=== PATIENT | female | born 1960 | race African-American/Black ===

== ENCOUNTER 2018-07-13 09:06 | Emergency (ER) | payer OTHER ==
--- OUTSIDE RECORDS SUMMARY | 2018-07-13 09:11 | XMS REPORT | Continuity of Care Document ---
Author Author Arpit lemusann [facility] Interface Address Unknown Phone Unavailable Problems Problem Status Onset Date Classification Date Reported Comments Source SOB Active 05/24/2016 [facility] COUGH Active 05/24/2016 [facility] CHEST PAIN, SOB Active 05/24/2016 [facility] Discharge Diagnosis: COPD exacerbation 06/14/2015 06/17/2015 [facility] Discharge Diagnosis: Acute bronchitis with COPD 02/20/2015 02/23/2015 [facility] Discharge Diagnosis: Chronic obstructive pulmonary disease, unspecified 01/23/2015 01/26/2015 [facility] Discharge Diagnosis: 01/23/2015 01/26/2015 [facility] Discharge Diagnosis: COPD 10/13/2014 10/16/2014 [facility] SHORTNESS OF BREATH Active 10/12/2014 [facility] Discharge Diagnosis: Asthma exacerbation in COPD 12/01/2013 12/04/2013 [facility] Discharge Diagnosis: COPD exacerbation 11/01/2013 11/04/2013 [facility] ABNORMAL LABS Active 10/14/2012 [facility] + BLOOD CULTURE Active 10/14/2012 [facility] OTHER Active 10/12/2012 [facility] COPD Active 10/12/2012 [facility] DIFFICULTY BREATHING Active 04/29/2012 [facility] COPD EXCERBATION,HYPOXIA Active 04/08/2012 [facility] Asthma Active Problem 10/19/2012 [facility] COPD Active Problem 10/19/2012 [facility] High blood pressure Active Problem 10/19/2012 [facility] Asthma Active Problem 05/28/2016 [facility] COPD Active Problem 05/28/2016 [facility] High blood pressure Active Problem 05/28/2016 [facility] CHR AIRWAY OBSTRUCT NEC Active [facility] Medications Medication Details Route Status Patient Instructions Ordering Provider Order Date Source Amlodipine 10 mg, 2 tab, Route: PO, Drug form: TAB, Daily, Dosing Weight 85, kg, Start date: 05/26/16 9:00:00 CDT, Duration: 30 day, Stop date: 06/24/16 9:00:00 CDTNotes: (Same as: Norvasc) No Longer Active 05/26/2016 [facility] Symbicort 80/4.5 inhalation aerosol with adapter 2 inhalation, Route: INHALATION, Drug Form: AERO/A, Dosing Weight 85, kg, BID, Start date: 05/25/16 17:00:00 CDT, Duration: 30 day, Stop date: 06/24/16 9:00:00 CDTNotes: (Same as: Symbicort) WASTE: Aerosol - Return to Pharmacy Inactive 05/25/2016 [facility] Symbicort 80/4.5 inhalation aerosol with adapter 2 puff, INHALATION, BID, # 10.2 gm, 0 Refill(s) Active 05/25/2016 [facility] 200 ACTUAT Albuterol 0.09 MG/ACTUAT Metered Dose Inhaler 2 puff, INHALATION, Q4H, PRN for wheezing, # 9 gm, 0 Refill(s) Active 05/25/2016 [facility] aspirin 81 mg tablet, enteric coated 81 mg=1 tab, PO, Daily, # 90 tab, 3 Refill(s) Active 05/25/2016 [facility] 200 ACTUAT Albuterol 0.09 MG/ACTUAT Metered Dose Inhaler 2 puff, Route: INHALATION, Drug Form: AERO/A, Dosing Weight 85, kg, Q4H, PRN Wheezing, Start date: 05/25/16 14:26:00 CDT, Duration: 30 day, Stop date: 06/24/16 14:25:00 CDTNotes: Albuterol 90 microgram/inh 8gm HFA WASTE: Aerosol - Return to Pharmacy Same as: Soumya Lau Inactive 05/25/2016 [facility] Prednisone 60 mg, Route: PO, Drug form: TAB, ONCE, Dosing Weight 89.545, kg, Priority: STAT, Start date: 05/25/16 5:25:00 CDT, Stop date: 05/25/16 5:25:00 CDT Inactive 05/25/2016 [facility] Albuterol 0.833 MG/ML / Ipratropium [place] 0.167 MG/ML Inhalant Solution 9 mL, Route: NEB, Dosing Weight 89.545, kg, ONCE, STAT, Start date: 05/25/16 5:25:00 CDT, Stop date: 05/25/16 5:25:00 CDT Inactive 05/25/2016 [facility] Saline Flush 0.9% 10 mL, Route: IVP, Drug Form: INJ, Dosing Weight 85, kg, PRN, PRN Line Flush, Start date: 05/24/16 13:13:00 CDT, Duration: 30 day, Stop date: 06/23/16 13:12:00 CDTNotes: (Same as: BD Posiflush) Inactive 05/24/2016 [facility] predniSONE 20 mg oral tablet 40 mg=2 tab, PO, Daily, X 5 day, # 10 tab, 0 Refill(s) Active 06/14/2015 [facility] 200 ACTUAT Albuterol 0.09 MG/ACTUAT Metered Dose Inhaler [ProAir HFA] 2 puff, INHALER, Q6H, PRN for wheezing, # 8.5 gm, 0 Refill(s) Active 06/14/2015 [facility] Albuterol 0.833 MG/ML / Ipratropium [place] 0.167 MG/ML Inhalant Solution 3 mL, Route: NEB, Drug Form: SOLN, Dosing Weight 82.273, kg, ONCE, STAT, Start date: 06/14/15 13:24:00, Stop date: 06/14/15 13:24:00Notes: (Same as: Duoneb) Inactive 06/14/2015 [facility] Saline Flush 0.9% 10 mL, Route: IVP, Drug Form: INJ, Dosing Weight 82.273, kg, PRN, PRN Line Flush, Start date: 06/14/15 13:24:00, Duration: 30 day, Stop date: 07/14/15 13:23:00Notes: (Same as: BD Posiflush) Inactive 06/14/2015 [facility] methylPREDNISolone SODium SUCCinate 125 mg, 2 mL, Route: IVP, Drug form: INJ, ONCE, Dosing Weight 82.273, kg, Priority: STAT, Start date: 06/14/15 13:24:00, Stop date: 06/14/15 13:24:00Notes: (Same as:Solu- MEDROL, A-Methapred) Inactive 06/14/2015 [facility] Albuterol 0.833 MG/ML / Ipratropium [place] 0.167 MG/ML Inhalant Solution [DuoNeb] 3 ml, Route: NEB, Drug Form: SOLN, Dosing Weight 81.818, kg, PRN, PRN Respiratory Protocol, STAT, Start date: 06/14/15 12:36:00, Duration: 30 day, Stop date: 07/14/15 12:35:00Notes: (Same as: Mone) Inactive 06/14/2015 [facility] Albuterol 0.83 MG/ML Inhalant Solution 2.49 mg=3 mL, INHALATION, Q4H, PRN wheezing, coughing, or shortness of breath, # 120 ea, 1 Refill(s) Active 02/21/2015 [facility] azithromycin 250 mg oral tablet See Instructions, Take 2 tablets by mouth the first day then 1 tablet by mouth days 2-5., X 5 day, # 6 tab, 0 Refill(s) Active 02/21/2015 [facility] 200 ACTUAT Albuterol 0.09 MG/ACTUAT Metered Dose Inhaler [Proventil] 2 puff, INHALER, Q4H, PRN wheezing, coughing, or shortness of breath, # 1 ea, 1 Refill(s) Active 02/21/2015 [facility] predniSONE 20 mg oral tablet 60 mg=3 tab, PO, Daily, Take 3 tablets for 60 mg dose, X 5 day, # 15 tab, 0 Refill(s) Active 02/21/2015 [facility] Solu-Medrol 125 mg, Route: IVP, ONCE, Dosing Weight 81.818, kg, Priority: STAT, Start date: 02/20/15 17:42:00, Stop date: 02/20/15 17:42:00 Inactive 02/20/2015 [facility] Albuterol 0.833 MG/ML / Ipratropium [place] 0.167 MG/ML Inhalant Solution 3 mL, Route: NEB, Dosing Weight 81.818, kg, ONCE, STAT, Start date: 02/20/15 17:38:00, Stop date: 02/20/15 17:38:00 Inactive 02/20/2015 [facility] Symbicort 80/4.5 inhalation aerosol with adapter 2 puff, INHALATION, BID, # 10.2 gm, 0 Refill(s) Active 01/23/2015 [facility] Albuterol 0.83 MG/ML Inhalant Solution 2.49 mg=3 mL, INHALATION, Q6H, # 120 ea, 0 Refill(s) Active 01/23/2015 [facility] 200 ACTUAT Albuterol 0.09 MG/ACTUAT Metered Dose Inhaler 2 puff, INHALATION, Q4H, PRN for wheezing, # 9 gm, 0 Refill(s) Active 01/23/2015 [facility] predniSONE 20 mg oral tablet 40 mg=2 tab, PO, Daily, X 5 day, # 10 tab, 0 Refill(s) Active 01/23/2015 [facility] Prednisone 60 mg, Route: PO, Drug form: TAB, ONCE, Dosing Weight 81.818, kg, Priority: STAT, Start date: 01/23/15 10:12:00, Stop date: 01/23/15 10:12:00 Inactive 01/23/2015 [facility] Albuterol 0.833 MG/ML / Ipratropium [place] 0.167 MG/ML Inhalant Solution 9 mL, Route: NEB, Dosing Weight 81.818, kg, ONCE, STAT, Start date: 01/23/15 10:12:00, Stop date: 01/23/15 10:12:00 Inactive 01/23/2015 [facility] predniSONE 20 mg oral tablet 40 mg=2 tab, PO, Daily, X 5 day, # 10 tab, 0 Refill(s) Active 01/03/2015 [facility] 200 ACTUAT Albuterol 0.09 MG/ACTUAT Metered Dose Inhaler 2 puff, INHALATION, Q4H, PRN for wheezing, # 9 gm, 0 Refill(s) Active 01/03/2015 [facility] methylPREDNISolone SODium SUCCinate 125 mg, Route: IVP, ONCE, Dosing Weight 84.091, kg, Priority: STAT, Start date: 01/03/15 15:17:00, Stop date: 01/03/15 15:17:00 Inactive 01/03/2015 [facility] Albuterol 0.83 MG/ML Inhalant Solution 7.47 mg, Route: NEB, Drug form: SOLN, ONCE, Dosing Weight 84.091, kg, Priority: STAT, Start date: 01/03/15 15:17:00, Stop date: 01/03/15 15:17:00 Inactive 01/03/2015 [facility] Albuterol 0.833 MG/ML / Ipratropium [place] 0.167 MG/ML Inhalant Solution [DuoNeb] 3 ml, Route: NEB, Drug Form: SOLN, Dosing Weight 84.091, kg, PRN, PRN Respiratory Protocol, Start date: 01/03/15 13:52:00, Duration: 30 day, Stop date: 02/02/15 12:51:00Notes: (Same as: Duoneb) No Longer Active 01/03/2015 [facility] Albuterol 0.833 MG/ML / Ipratropium [place] 0.167 MG/ML Inhalant Solution [DuoNeb] 3 ml, Route: NEB, Drug Form: SOLN, Dosing Weight 84.091, kg, PRN, PRN Respiratory Protocol, Start date: 01/03/15 13:51:00, Duration: 30 day, Stop date: 02/02/15 12:50:00Notes: (Same as: Duoneb) No Longer Active 01/03/2015 [facility] Saline Flush 0.9% 10 mL, Route: IVP, Drug Form: INJ, Dosing Weight 84.091, kg, PRN, PRN Line Flush, Start date: 01/03/15 13:51:00, Duration: 30 day, Stop date: 02/02/15 12:50:00Notes: (Same as: BD Posiflush) No Longer Active 01/03/2015 [facility] predniSONE 20 mg oral tablet 60 mg=3 tab, PO, Daily, Take 3 tablets for 60 mg dose, X 5 day, # 15 tab, 0 Refill(s)Special Instructions: Take 3 tablets for 60 mg dose Active 10/13/2014 [facility] Magnesium Sulfate 2 gm, Route: IVPB, ONCE, Dosing Weight 72.727, kg, Priority: STAT, Start date: 10/13/14 0:04:00, Stop date: 10/13/14 0:04:00 Inactive 10/13/2014 [facility] methylPREDNISolone SODium SUCCinate 125 mg, Route: IVP, ONCE, Dosing Weight 72.727, kg, Priority: STAT, Start date: 10/13/14 0:04:00, Stop date: 10/13/14 0:04:00 Inactive 10/13/2014 [facility] Albuterol 0.83 MG/ML Inhalant Solution 2.49 mg, 3 mL, Route: NEB, Drug form: SOLN, ONCE, Dosing Weight 72.727, kg, Priority: STAT, Start date: 10/13/14 0:04:00, Stop date: 10/13/14 0:04:00Notes: SEE RT DOCUMENTATION (Same as: Brycetil) Inactive 10/13/2014 [facility] Albuterol 0.833 MG/ML / Ipratropium [place] 0.167 MG/ML Inhalant Solution 3 mL, Route: NEB, Drug Form: SOLN, Dosing Weight 72.727, kg, ONCE, STAT, Start date: 10/12/14 23:53:00, Stop date: 10/12/14 23:53:00 No Longer Active 10/13/2014 [facility] Saline Flush 0.9% 10 mL, Route: IVP, Drug Form: INJ, Dosing Weight 72.727, kg, PRN, PRN Line Flush, Start date: 10/12/14 23:53:00, Duration: 30 day, Stop date: 11/11/14 23:52:00Notes: (Same as: BD Posiflush) No Longer Active 10/13/2014 [facility] albuterol CFC free 90 mcg/inh inhalation aerosol with adapter 1 puff, INHALATION, Q4H, for wheezing, # 2 ea, 0 Refill(s) Active 12/02/2013 [facility] predniSONE 20 mg oral tablet See Instructions, 2 tab PO Daily for three days then one tab daily for two, # 8 tab, 0 Refill(s)Special Instructions: 2 tab PO Daily for three days then one tab daily for two Active 12/02/2013 [facility] Albuterol 0.833 MG/ML / Ipratropium [place] 0.167 MG/ML Inhalant Solution [DuoNeb] 3 ml, Route: INHALATION, Drug Form: SOLN, Dosing Weight 77.273, kg, PRN, PRN Respiratory Protocol, Start date: 12/01/13 21:29:00, Duration: 30 day, Stop date: 12/31/13 21:28:00Notes: (Same as: Duoneb) No Longer Active 12/02/2013 [facility] Magnesium Sulfate 2 gm, 50 mL, Route: IVPB, Drug form: INJ, ONCE, Dosing Weight 77.273, kg, Priority: STAT, Start date: 12/01/13 19:55:00, Stop date: 12/01/13 19:55:00 Inactive 12/02/2013 [facility] Prednisone 60 mg, 3 tab, Route: PO, Drug form: TAB, ONCE, Dosing Weight 77.273, kg, Priority: STAT, Start date: 12/01/13 19:55:00, Stop date: 12/01/13 19:55:00Notes: Take with food. Inactive 12/02/2013 [facility] Albuterol 0.833 MG/ML / Ipratropium [place] 0.167 MG/ML Inhalant Solution 3 mL, Route: NEB, Drug Form: SOLN, Dosing Weight 77.273, kg, ONCE, STAT, Start date: 12/01/13 19:55:00, Stop date: 12/01/13 19:55:00 Inactive 12/02/2013 [facility] Saline Flush 0.9% 10 mL, Route: IVP, Drug Form: INJ, Dosing Weight 77.273, kg, PRN, PRN Line Flush, Start date: 12/01/13 19:55:00, Duration: 30 day, Stop date: 12/31/13 19:54:00Notes: (Same as: BD Posiflush) No Longer Active 12/02/2013 [facility] Sodium Chloride 0.154 MEQ/ML Injectable Solution 1,000 mL, 1,000 ml/hr, Infuse Over: 1 hr, Route: IV, 1,000, Drug form: INJ, ONCE, Priority: STAT, Dosing Weight 77.273 kg, Start date: 12/01/13 19:55:00, Duration: 1 doses or times, Stop date: 12/01/13 19:55:00 Inactive 12/02/2013 [facility] Fluticasone propionate 0.1 MG/ACTUAT / salmeterol 0.05 MG/ACTUAT Dry Powder Inhaler [Advair 100/50] 1 puff, INHALATION, BID, # 1 ea, 0 Refill(s) Active 11/02/2013 [facility] Albuterol 0.09 MG/ACTUAT Inhalant Solution 1 puff, INHALATION, QID, wheezing, # 1 ea, 0 Refill(s) Active 11/02/2013 [facility] predniSONE 20 mg oral tablet 20 mg=1 tab, PO, Daily, # 7 tab, 0 Refill(s) Active 11/02/2013 [facility] Albuterol 0.833 MG/ML / Ipratropium [place] 0.167 MG/ML Inhalant Solution [DuoNeb] 3 ml, Route: INHALATION, Drug Form: SOLN, Dosing Weight 72.727, kg, PRN, PRN Respiratory Protocol, Start date: 11/01/13 23:14:00, Duration: 1 doses or times, Stop date: 11/01/13 23:14:00Notes: (Same as: Duoneb) Inactive 11/02/2013 [facility] Prednisone 60 mg, Route: PO, Drug form: TAB, ONCE, Dosing Weight 72.727, kg, Priority: STAT, Start date: 11/01/13 23:14:00, Stop date: 11/01/13 23:14:00 Inactive 11/02/2013 [facility] Albuterol 0.833 MG/ML / Ipratropium [place] 0.167 MG/ML Inhalant Solution 3 mL, Route: NEB, Drug Form: SOLN, Dosing Weight 85.909, kg, ONCE, STAT, Start date: 11/01/13 20:18:00, Stop date: 11/01/13 20:18:00Notes: (Same as: Duoneb) Inactive 11/02/2013 [facility] Saline Flush 0.9% 10 mL, Route: IVP, Drug Form: INJ, Dosing Weight 85.909, kg, PRN, PRN Line Flush, Start date: 11/01/13 20:18:00, Duration: 30 day, Stop date: 12/01/13 20:17:00 Inactive 11/02/2013 [facility] Prednisone 60 mg, 3 tab, Route: PO, Drug form: TAB, ONCE, Dosing Weight 85.909, kg, Priority: STAT, Start date: 11/01/13 20:18:00, Stop date: 11/01/13 20:18:00Notes: Take with food. Inactive 11/02/2013 [facility] ibuprofen 600 mg oral tablet 600 mg, 1 tab, PO, Q6H, PRN, Take with food, 20 tab, Pain, Substitution AllowedTake with food PO Active [facility] 10/17/2012 [facility] clindamycin 300 mg oral capsule 300 mg, 1 cap, PO, Q8H, 30 cap, Substitution Allowed PO Active [facility] 10/17/2012 [facility] Remeron 7.5 mg, 0.5 tab, Route: PO, Drug form: TAB, Bedtime, Dosing Weight 81.534, kg, Start date: 10/15/12 21:00:00, Duration: 30 day, Stop date: 11/13/12 21:00:00 PO No Longer Active [facility] 10/16/2012 [facility] Symbicort 80/4.5 inhalation aerosol with adapter 2 inhalation, Route: INHALATION, Drug Form: AERO/A, Dosing Weight 81.534, kg, BID, Start date: 10/15/12 17:00:00, Duration: 30 day, Stop date: 11/14/12 9:00:00 INHALATION No Longer Active [facility] 10/15/2012 [facility] acetaminophen 650 mg, 2 tab, Route: PO, Drug form: TAB, Q6H, Dosing Weight 81.534, kg, PRN Fever, Start date: 10/15/12 16:37:00, Duration: 30 day, Stop date: 11/14/12 16:36:00 PO No Longer Active [facility] 10/15/2012 [facility] Motrin 800 mg, 1 tab, Route: PO, Drug form: TAB, TID, Dosing Weight 81.534, kg, PRN Pain, Start date: 10/15/12 16:37:00, Duration: 30 day, Stop date: 11/14/12 16:36:00 PO No Longer Active [facility] 10/15/2012 [facility] amLODipine 10 mg, 2 tab, Route: PO, Drug form: TAB, Daily, Dosing Weight 70.455, kg, Start date: 10/15/12 9:00:00, Duration: 30 day, Stop date: 11/13/12 9:00:00 PO No Longer Active [facility] 10/15/2012 [facility] albuterol-ipratropium 2.5-0.5 mg inhalation solution 3 mL, Route: INHALATION, Drug Form: SOLN, Dosing Weight 70.455, kg, RQID, Start date: 10/15/12 7:00:00, Duration: 30 day, Stop date: 11/13/12 19:00:00 INHALATION No Longer Active [facility] 10/15/2012 [facility] acetaminophen 650 mg, 2 tab, Route: PO, Drug form: TAB, Q6H, Dosing Weight 70.455, kg, PRN Pain, Start date: 10/15/12 5:20:00, Duration: 30 day, Stop date: 11/14/12 5:19:00 PO No Longer Active [facility] 10/15/2012 [facility] clindamycin + Sodium Chloride 0.9% IV 100 mL 600 mg, 4 mL, Route: IVPB, Drug form: INJ, [id number], Dosing Weight 70.455, kg, Start date: 10/14/12 22:00:00, Stop date: 11/13/12 16:30:00 IVPB No Longer Active [facility] 10/15/2012 [facility] DuoNeb inhalation solution 3 ml, Route: INHALATION, Drug Form: SOLN, Dosing Weight 70.455, kg, RQID, PRN Respiratory Protocol, Start date: 10/14/12 21:40:00, Duration: 30 day, Stop date: 11/13/12 21:39:00 INHALATION No Longer Active [facility] 10/15/2012 [facility] amLODipine 10 mg oral tablet 10 mg, 1 tab, PO, Daily, 30 tab, Substitution Allowed, TAB PO On Hold [facility] 10/14/2012 [facility] clindamycin 600 mg, Route: IVPB, ONCE, Dosing Weight 70.455, kg, Priority: STAT, Start date: 10/14/12 15:21:00, Stop date: 10/14/12 15:21:00 IVPB No Longer Active [facility] 10/14/2012 [facility] Protonix 40 mg, 1 tab, Route: PO, Drug form: ECTAB, Before Dinner, Start date: 10/13/12 16:30:00, Duration: 30 day, Stop date: 11/11/12 16:30:00 PO No Longer Active [facility] 10/13/2012 [facility] Xopenex HFA 45 mcg/inh inhalation aerosol with adapter 2 puff, INHALATION, Q4H, PRN, 1 can, as needed for wheezing, Substitution Allowed, Maintenance INHALATION No Longer Active [facility] 10/13/2012 [facility] Medrol Dosepak 4 mg Tablet See Instructions, as directed on package labeling, 1 pkg, Substitution Allowedas directed on package labeling No Longer Active [facility] 10/13/2012 [facility] Azithromycin 5 Day Dose Pack 250 mg oral tablet See Instructions, as directed on package labeling, 1 pkg, Substitution Allowedas directed on package labeling No Longer Active [facility] 10/13/2012 [facility] pantoprazole 40 mg oral enteric coated tablet 40 mg, 1 tab, PO, Before Dinner, 30 tab, Substitution Allowed, ECTAB PO No Longer Active [facility] 10/13/2012 [facility] DuoNeb inhalation solution 3 ml, INHALATION, QID, 30 ea, Substitution Allowed, Maintenance, SOLN INHALATION On Hold [facility] 10/13/2012 [facility] albuterol 1.25 mg, 3 mL, Route: NEB, Drug form: SOLN, RQ8H, PRN Shortness of breath, Start date: 10/13/12 10:57:00, Duration: 30 day, Stop date: 11/12/12 10:56:00 NEB No Longer Active [facility] 10/13/2012 [facility] Xopenex 0.63 mg, Route: NEB, Drug form: AERO, Q8H, Dosing Weight 81.477, kg, PRN as needed for wheezing, Start date: 10/13/12 10:50:00, Duration: 30 day, Stop date: 11/12/12 10:49:00 NEB No Longer Active [facility] 10/13/2012 [facility] tuberculin purified protein derivative 5 unit, 0.1 mL, Route: INTRADERM, Drug form: INJ, ONCE, Dosing Weight 65.909, kg, Start date: 10/13/12 9:00:00, Stop date: 10/13/12 9:00:00 INTRADERM No Longer Active [facility] 10/13/2012 [facility] pneumococcal 23-valent vaccine 0.5 ml, Route: IM, Drug Form: INJ, Start date: 10/13/12 9:00:00, Stop date: 10/13/12 9:00:00 IM No Longer Active [facility] 10/13/2012 [facility] predniSONE 60 mg, 3 tab, Route: PO, Drug form: TAB, Daily, Dosing Weight 65.909, kg, Start date: 10/13/12 9:00:00, Duration: 30 day, Stop date: 11/11/12 9:00:00 PO No Longer Active [facility] 10/13/2012 [facility] Excedrin 2 tab, Route: PO, Dosing Weight 81.477, kg, Q6H, Start date: 10/13/12 6:00:00, Duration: 30 day, Stop date: 11/12/12 0:00:00 PO No Longer Active [facility] 10/13/2012 [facility] Esgic 2 tab, Route: PO, Drug Form: TAB, Q6H, PRN Headache, Start date: 10/13/12 5:01:00, Duration: 30 day, Stop date: 11/12/12 5:00:00 PO No Longer Active [facility] 10/13/2012 [facility] acetaminophen 650 mg, 2 tab, Route: PO, Drug form: TAB, Q6H, Dosing Weight 81.477, kg, PRN Pain, Start date: 10/13/12 4:38:00, Duration: 30 day, Stop date: 11/12/12 4:37:00 PO No Longer Active [facility] 10/13/2012 [facility] Sodium Chloride 0.9% (Bolus) IV 500 mL 500 mL, Rate: 500 ml/hr, Infuse over: 1 hr, Route: IV, Dosing Weight 81.477 kg, Total Volume: 500, Priority: STAT, Start date: 10/13/12 4:36:00, Duration: 1 doses or times, Stop date: 10/13/12 5:35:00, Bolus DoseBolus Dose IV No Longer Active [facility] 10/13/2012 [facility] acetaminophen 650 mg, 2 tab, Route: PO, Drug form: TAB, Q4H, Dosing Weight 79.205, kg, PRN Headache, Start date: 10/13/12 0:08:00, Duration: 30 day, Stop date: 11/12/12 0:07:00 PO No Longer Active [facility] 10/13/2012 [facility] nitroglycerin 0.4 mg sublingual tablet 0.4 mg, 1 tab, Route: SL, Drug form: TAB, Q5Min, PRN Chest Pain, Start date: 10/13/12 0:04:00, Duration: 30 day, Stop date: 11/12/12 0:03:00 SL No Longer Active [facility] 10/13/2012 [facility] atropine 0.5 mg, 5 mL, Route: IVP, Drug form: INJ, PRN, PRN Bradycardia, Start date: 10/13/12 0:04:00, Duration: 30 day, Stop date: 11/12/12 0:03:00 IVP No Longer Active [facility] 10/13/2012 [facility] ceftriaxone + Sodium Chloride 0.9% IV 100 mL 1 gm, Route: IVPB, [id number], Dosing Weight 65.909, kg, Start date: 10/13/12 0:00:00, Duration: 30 day, Stop date: 11/11/12 0:00:00 IVPB No Longer Active [facility] 10/13/2012 [facility] methylPREDNISolone SODium SUCCinate 40 mg, 1 mL, Route: IVP, Drug form: INJ, Q8H, Dosing Weight 65.909, kg, Start date: 10/13/12 0:00:00, Duration: 48 hr, Stop date: 10/14/12 16:00:00 IVP No Longer Active White 10/13/2012 [facility] azithromycin + Sodium Chloride 0.9% IV 250 mL 500 mg, Route: IVPB, [id number], Dosing Weight 65.909, kg, Start date: 10/13/12 0:00:00, Duration: 30 day, Stop date: 11/11/12 0:00:00 IVPB No Longer Active Stanley 10/13/2012 [facility] Saline Flush 0.9% 5 ml, Route: IVP, Drug Form: INJ, Dosing Weight 65.909, kg, PRN, PRN Line Flush, Start date: 10/12/12 23:55:00, Duration: 30 day, Stop date: 11/11/12 23:54:00 IVP No Longer Active Stanley 10/13/2012 [facility] Sodium Chloride 0.9% IV 500 mL 500 mL, Rate: 75 ml/hr, Infuse over: 6.7 hr, Route: IV, Dosing Weight 65.909 kg, Total Volume: 500, Start date: 10/12/12 23:55:00, Duration: 30 day, Stop date: 11/11/12 23:54:00 IV No Longer Active [facility] 10/13/2012 [facility] Protonix 40 mg, Route: IVP, Drug form: INJ, Before Dinner, Dosing Weight 65.909, kg, Priority: NOW, Start date: 10/12/12 23:55:00, Duration: 30 day, Stop date: 11/11/12 16:30:00 IVP No Longer Active [facility] 10/13/2012 [facility] albuterol-ipratropium 2.5-0.5 mg inhalation solution 3 mL, Route: NEB, Drug Form: SOLN, Dosing Weight 65.909, kg, RQ4H, PRN Wheezing, Start date: 10/12/12 23:55:00, Duration: 30 day, Stop date: 11/11/12 23:54:00 NEB No Longer Active [facility] 10/13/2012 [facility] Sodium Chloride 0.9% (Bolus) IV 1000 mL 1,000 mL, Rate: 1,000 ml/hr, Infuse over: 1 hr, Route: IV, Dosing Weight 65.909 kg, Total Volume: 1,000, Priority: STAT, Start date: 10/12/12 22:26:00, Duration: 1 doses or times, Stop date: 10/12/12 23:25:00, Bolus DoseBolus Dose IV No Longer Active [facility] 10/13/2012 [facility] magnesium sulfate 2gm / NS 50ml (premixed) 2 gm, Route: IVPB, Drug form: INJ, ONCE, Dosing Weight 65.909, kg, Start date: 10/12/12 20:25:00, Duration: 2 hr, Stop date: 10/12/12 20:25:00 IVPB No Longer Active [facility] 10/13/2012 [facility] albuterol-ipratropium 2.5-0.5 mg inhalation solution 9 mL, Route: NEB, Drug Form: SOLN, Dosing Weight 65.909, kg, ONCE, STAT, Start date: 10/12/12 20:25:00, Stop date: 10/12/12 20:25:00 NEB No Longer Active [facility] 10/13/2012 [facility] Saline Flush 0.9% 5 mL, Route: IVP, Drug Form: INJ, Dosing Weight 65.909, kg, PRN, PRN Line Flush, Start date: 10/12/12 20:25:00, Duration: 30 day, Stop date: 11/11/12 20:24:00 IVP No Longer Active [facility] 10/13/2012 [facility] methylPREDNISolone SODium SUCCinate 125 mg, Route: IVP, ONCE, Dosing Weight 65.909, kg, Priority: STAT, Start date: 10/12/12 20:25:00, Stop date: 10/12/12 20:25:00 IVP No Longer Active [facility] 10/13/2012 [facility] magnesium sulfate 2 gm, Route: IVPB, ONCE, Dosing Weight 65.909, kg, Priority: STAT, Start date: 10/12/12 20:25:00, Stop date: 10/12/12 20:25:00 IVPB No Longer Active [facility] 10/13/2012 [facility] SoluMedrol 125 mg, Route: IVP, ONCE, Dosing Weight 65.909, kg, Priority: STAT, Start date: 10/12/12 20:24:00, Stop date: 10/12/12 20:24:00 IVP No Longer Active [facility] 10/13/2012 [facility] Norvasc 10 mg oral tablet 10 mg, 1 tab, PO, Daily, 30 tab, Substitution Allowed, TAB PO Active [facility] 07/15/2012 [facility] albuterol 90 mcg/inh inhalation aerosol 2 puff, INHALATION, Q6H, 1 can, Substitution Allowed, Maintenance INHALATION Active [facility] 07/15/2012 [facility] albuterol 0.083% inhalation solution 2.49 mg, 3 mL, NEB, Q6H, one box of unit dose vials, 1 box, Substitution Allowedone box of unit dose vials NEB Active [facility] 07/15/2012 [facility] Zithromax Z-Joe 250 mg oral tablet 250 mg, 1 tab, PO, Daily, TAKE 2 TABLETS ON DAY 1; TAKE 1 TABLET ON DAYS 2 - 5, 6 tab, Substitution AllowedTAKE 2 TABLETS ON DAY 1; TAKE 1 TABLET ON DAYS 2 - [address] [facility] 07/15/2012 [facility] predniSONE 20 mg oral tablet 40 mg po x4day,then 20 mg po x4da, PO, Daily, 12 tab, Substitution Allowed PO Active [facility] 07/15/2012 [facility] NIFEdipine 10 mg, 1 cap, Route: PO, Drug form: CAP, ONCE, Dosing Weight 79.545, kg, Start date: 07/15/12 9:47:00, Stop date: 07/15/12 9:47:[address] [facility] 07/15/2012 [facility] predniSONE 60 mg, 3 tab, Route: PO, Drug form: TAB, ONCE, Dosing Weight 79.545, kg, Priority: STAT, Start date: 07/15/12 9:46:00, Stop date: 07/15/12 9:46:[address] [facility] 07/15/2012 [facility] DuoNeb inhalation solution 3 ml, Route: INHALATION, Drug Form: SOLN, Dosing Weight 79.545, kg, ONCE, PRN Respiratory Protocol, Start date: 07/15/12 9:46:[address] Longer Active [facility] 07/15/2012 [facility] Periactin 4 mg oral tablet 4 mg, 1 tab, PO, TID, 60 tab, Substitution Allowed, TAB PO Active [facility] 04/30/2012 [facility] predniSONE 20 mg oral tablet 40 mg po [id number],20 mg [id number], PO, Daily, 12 tab, Substitution Allowed PO Active [facility] 04/30/2012 [facility] DuoNeb inhalation solution 3 mL, INHALATION, Q6H, 1 box, 2, 2, Substitution Allowed, Maintenance INHALATION Active [facility] 04/30/2012 [facility] DuoNeb inhalation solution 3 ml, Route: INHALATION, Drug Form: SOLN, Dosing Weight 75, kg, ONCE, PRN Respiratory Protocol, Start date: 04/29/12 17:14:[address] Longer Active [facility] 04/29/2012 [facility] predniSONE 60 mg, 3 tab, Route: PO, Drug form: TAB, ONCE, Dosing Weight 75, kg, Priority: STAT, Start date: 04/29/12 16:16:00, Stop date: 04/29/12 16:16:[address] [facility] 04/29/2012 [facility] DuoNeb inhalation solution 3 mL, Route: INHALATION, Drug Form: SOLN, Dosing Weight 75, kg, ONCE, Start date: 04/29/12 16:09:00, Stop date: 04/29/12 16:09:[address] Longer Active [facility] 04/29/2012 [facility] DuoNeb inhalation solution 3 mL, Route: INHALATION, Drug Form: SOLN, Dosing Weight 75, kg, ONCE, Start date: 04/29/12 16:08:00, Stop date: 04/29/12 16:08:[address] Longer Active [facility] 04/29/2012 [facility] Levaquin 500 mg oral tablet 500 mg, 1 tab, PO, Q24H, 5 tab, Substitution Allowed PO Active [facility] 04/10/2012 [facility] predniSONE 20 mg oral tablet 20 mg, 1 tab, PO, Daily, 7 tab, Substitution Allowed, TAB PO Active [facility] 04/10/2012 [facility] Moshe Perles 100 mg oral capsule 100 mg, 1 cap, PO, TID, 21 cap, Substitution Allowed, CAP PO Active [facility] 04/10/2012 [facility] Proventil HFA 90 mcg/inh inhalation aerosol with adapter 2 puff, INHALATION, Q4H, PRN, 1 can, as needed for wheezing, Substitution Allowed, Maintenance, AERO/A INHALATION Active [facility] 04/10/2012 [facility] Zithromax 500 mg, 250 mL, Route: IV, Drug form: PDR/INJ, Q24H, Dosing Weight 72.727, kg, Start date: 04/09/12 18:00:00, Duration: 30 day, Stop date: 05/08/12 18:00:00 IV No Longer Active [facility] 04/10/2012 [facility] methylPREDNISolone SODium SUCCinate 80 mg, 2 mL, Route: IVP, Drug form: INJ, Q24H, Dosing Weight 72.727, kg, Start date: 04/09/12 15:00:00, Duration: 30 day, Stop date: 05/08/12 15:00:00 IVP No Longer Active [facility] 04/09/2012 [facility] acetaminophen 650 mg, 2 tab, Route: PO, Drug form: TAB, Q4H, Dosing Weight 77.983, kg, PRN Pain, Start date: 04/09/12 12:07:00, Duration: 30 day, Stop date: 05/09/12 12:06:00 PO No Longer Active [facility] 04/09/2012 [facility] influenza virus vaccine, inactivated 0.5 ml, Route: IM, Drug Form: INJ, Start date: 04/09/12 9:00:00, Stop date: 04/09/12 9:00:00 IM No Longer Active [facility] 04/09/2012 [facility] predniSONE 40 mg, Route: PO, Drug form: TAB, Daily, Dosing Weight 77.983, kg, Start date: 04/09/12 9:00:00, Duration: 30 day, Stop date: 05/08/12 9:00:00 PO No Longer Active [facility] 04/09/2012 [facility] Ambien 10 mg, 1 tab, Route: PO, Drug form: TAB, Bedtime, Dosing Weight 77.983, kg, PRN Insomnia, Start date: 04/09/12 0:44:00, Duration: 30 day, Stop date: 05/09/12 0:43:00 PO No Longer Active [facility] 04/09/2012 [facility] SoluMedrol 125 mg, 2 mL, Route: IVP, Drug form: INJ, Q12H, Dosing Weight 77.983, kg, Start date: 04/08/12 21:00:00, Duration: 30 day, Stop date: 05/08/12 9:00:00 IVP No Longer Active [facility] 04/09/2012 [facility] Levaquin 750 mg, 150 mL, Route: IV, Drug form: SOLN, Q24H, Dosing Weight 72.727, kg, Start date: 04/08/12 20:00:00, Duration: 30 day, Stop date: 05/07/12 20:00:00 IV No Longer Active [facility] 04/09/2012 [facility] enoxaparin 40 mg, 0.4 mL, Route: SUB-Q, Drug form: INJ, [id number], Dosing Weight 77.983, kg, Start date: 04/08/12 20:00:00, Duration: 30 day, Stop date: 05/07/12 20:00:00 [facility]2012 [facility] Saline Flush 0.9% 5 ml, Route: IVP, Drug Form: INJ, Dosing Weight 72.727, kg, PRN, PRN Line Flush, Start date: 04/08/12 18:09:00, Duration: 30 day, Stop date: 05/08/12 18:08:00 IVP No Longer Active [facility] 04/09/2012 [facility] albuterol-ipratropium 2.5-0.5 mg inhalation solution 3 mL, Route: NEB, Drug Form: SOLN, Dosing Weight 72.727, kg, PRN, PRN Respiratory Protocol, Start date: 04/08/12 18:09:00, Duration: 30 day, Stop date: 05/08/12 18:08:00 NEB No Longer Active [facility] 04/09/2012 [facility] albuterol 0.083% inhalation solution 2.49 mg, 3 mL, Route: NEB, Drug form: SOLN, PRN, Dosing Weight 72.727, kg, PRN Respiratory Protocol, Start date: 04/08/12 18:09:00, Duration: 30 day, Stop date: 05/08/12 18:08:00 NEB No Longer Active [facility] 04/09/2012 [facility] ipratropium 0.5 mg, 2.5 mL, Route: NEB, Drug form: SOLN, PRN, Dosing Weight 72.727, kg, PRN Respiratory Protocol, Start date: 04/08/12 18:09:00, Duration: 30 day, Stop date: 05/08/12 18:08:00 NEB No Longer Active [facility] 04/09/2012 [facility] Proventil HFAd 2 puff, Q4H, PRN, as needed for wheezing, Substitution Allowed, Maintenance No Longer Active [facility] 04/08/2012 [facility] Xopenex 0.63 mg, NEB, Q8H, PRN, as needed for wheezing, Substitution Allowed, AERO NEB Active 04/08/2012 [facility] Pepcid 20 mg, Route: IV, ONCE, Dosing Weight 72.727, kg, Start date: 04/08/12 17:37:00, Stop date: 04/08/12 17:37:00 IV No Longer Active [facility] 04/08/2012 [facility] Benadryl 25 mg, Route: IVP, ONCE, Dosing Weight 72.727, kg, PRN Itching, Start date: 04/08/12 17:36:00 IVP No Longer Active [facility] 04/08/2012 [facility] aspirin 325 mg tablet 325 mg, Route: PO, Drug form: TAB, ONCE, Dosing Weight 72.727, kg, Priority: STAT, Start date: 04/08/12 16:49:00, Stop date: 04/08/12 16:49:00 PO No Longer Active [facility] 04/08/2012 [facility] ipratropium 0.5 mg, 2.5 mL, Route: NEB, Drug form: SOLN, ONCE, Dosing Weight 72.727, kg, Priority: STAT, Start date: 04/08/12 15:09:00, Stop date: 04/08/12 15:09:00 NEB No Longer Active [facility] 04/08/2012 [facility] albuterol 0.083% inhalation solution 5 mg, 6.02 mL, Route: NEB, Drug form: SOLN, Continuous, Dosing Weight 72.727, kg, PRN Dyspnea, 5 mg/hr for non intubated patients; 10 mg/hr for intubated patients, Priority: STAT, Start date: 04/08/12 15:09:00, Duration: 30 day, Stop date: 05/08/12 15... NEB No Longer Active [facility] 04/08/2012 [facility] Rocephin 1 gm, Route: IV, Drug form: PDR/INJ, ONCE, Dosing Weight 72.727, kg, Start date: 04/08/12 15:09:00, Stop date: 04/08/12 15:09:00 IV No Longer Active [facility] 04/08/2012 [facility] magnesium sulfate 2 gm, 50 mL, Route: IVPB, Drug form: INJ, ONCE, Dosing Weight 72.727, kg, Priority: STAT, Start date: 04/08/12 15:09:00, Stop date: 04/08/12 15:09:00 IVPB No Longer Active [facility] 04/08/2012 [facility] methylPREDNISolone SODium SUCCinate taper each day 125 mg, 2 mL, Route: IVP, Drug form: INJ, ONCE, Dosing Weight 72.727, kg, Priority: STAT, Start date: 04/08/12 15:09:00, Stop date: 04/08/12 15:09:00 IVP No Longer Active [facility] 04/08/2012 [facility] Zithromax + Sodium Chloride 0.9% IV 250 mL 500 mg, Route: IV, ONCE, Dosing Weight 72.727, kg, Start date: 04/08/12 15:09:00, Stop date: 04/08/12 15:09:00 IV No Longer Active [facility] 04/08/2012 [facility] Saline Flush 0.9% 5 ml, Route: IVP, Drug Form: INJ, Dosing Weight 72.727, kg, PRN, PRN Line Flush, Start date: 04/08/12 15:09:00, Duration: 30 day, Stop date: 05/08/12 15:08:00 IVP No Longer Active [facility] 04/08/2012 [facility] albuterol CFC free 90 mcg/inh inhalation aerosol with adapter 2 puff, INHALATION, Q4H, PRN, 9 gm, for wheezing, Substitution Allowed, Maintenance, AERO INHALATION Active [facility] 03/03/2012 [facility] predniSONE 20 mg oral tablet 60 mg, 3 tab, PO, Daily, Take 3 tablets for 60 mg dose, 12 tab, Substitution AllowedTake 3 tablets for 60 mg dose PO Active [facility] 03/03/2012 [facility] albuterol-ipratropium 3 ml, Route: NEB, Drug Form: SOLN, Dosing Weight 72.727, kg, Q15Min, STAT, Start date: 03/03/12 2:16:00, Duration: 2 doses or times, Stop date: 03/03/12 2:31:00 NEB Active [facility] 03/03/2012 [facility] predniSONE 60 mg, 3 tab, Route: PO, Drug form: TAB, ONCE, Dosing Weight 72.727, kg, Priority: STAT, Start date: 03/03/12 2:16:00, Stop date: 03/03/12 2:16:00 PO No Longer Active [facility] 03/03/2012 [facility] Saline Flush 0.9% 5 ml, Route: IVP, Drug Form: INJ, Dosing Weight 72.727, kg, PRN, PRN Line Flush, Start date: 03/03/12 2:16:00, Duration: 30 day, Stop date: 04/02/12 2:15:00 IVP No Longer Active [facility] 03/03/2012 [facility] DuoNeb inhalation solution 3 ml, Route: INHALATION, Drug Form: SOLN, Dosing Weight 72.727, kg, PRN, PRN Respiratory Protocol, Start date: 03/03/12 2:05:00, Duration: 30 day, Stop date: 04/02/12 2:04:00 INHALATION No Longer Active [facility] 03/03/2012 [facility] cyproheptadine 4 mg oral tablet 4 mg, 1 tab, PO, TID, 30 tab, Substitution Allowed, TAB PO Active [facility] 01/24/2012 [facility] albuterol 90 mcg/inh inhalation aerosol 1 puff, INHALATION, QID, PRN, 1 ea, wheezing, Substitution Allowed, Maintenance INHALATION Active [facility] 01/24/2012 [facility] Zyrtec 10 mg oral tablet 10 mg, 1 tab, PO, Daily, 30 tab, Substitution Allowed, TAB PO Active [facility] 01/24/2012 [facility] Levaquin 750 mg oral tablet 750 mg, 1 tab, PO, Q24H, 7 tab, Substitution Allowed, TAB PO Active [facility] 01/24/2012 [facility] predniSONE 20 mg oral tablet 60 mg, 3 tab, PO, ONCE, Take 3 tablets for 60 mg dose, 9 tab, Substitution AllowedTake 3 tablets for 60 mg dose PO Active [facility] 01/24/2012 [facility] methylPREDNISolone SODium SUCCinate taper each day 125 mg, Route: IVP, ONCE, Dosing Weight 70.455, kg, Priority: STAT, Start date: 01/24/12 13:15:00, Stop date: 01/24/12 13:15:00 IVP No Longer Active [facility] 01/24/2012 [facility] ipratropium 0.5 mg, Route: NEB, ONCE, Dosing Weight 70.455, kg, Priority: STAT, Start date: 01/24/12 13:15:00, Stop date: 01/24/12 13:15:00 NEB No Longer Active [facility] 01/24/2012 [facility] albuterol 0.083% inhalation solution 5 mg, 6.02 mL, Route: NEB, Drug form: SOLN, Continuous, Dosing Weight 70.455, kg, PRN Dyspnea, 5 mg/hr for non intubated patients; 10 mg/hr for intubated patients, Priority: STAT, Start date: 01/24/12 13:15:00, Duration: 30 day, Stop date: 02/23/12 13... NEB No Longer Active [facility] 01/24/2012 [facility] Saline Flush 0.9% 5 ml, Route: IVP, Drug Form: INJ, Dosing Weight 70.455, kg, PRN, PRN Line Flush, Start date: 01/24/12 13:15:00, Duration: 30 day, Stop date: 02/23/12 13:14:00 IVP No Longer Active [facility] 01/24/2012 [facility] cyproheptadine 4 mg oral tablet 4 mg, 1 tab, PO, TID, PRN, 30 tab, as needed for allergy symptoms, Substitution Allowed, TAB PO Active [facility] 12/10/2011 [facility] albuterol 90 mcg/inh inhalation aerosol 1 puff, INHALATION, QID, PRN, 1 ea, wheezing, Substitution Allowed, Maintenance INHALATION Active [facility] 12/10/2011 [facility] predniSONE 20 mg oral tablet 60 mg, 3 tab, PO, Daily, Take 3 tablets for 60 mg dose, 15 tab, Substitution AllowedTake 3 tablets for 60 mg dose PO Active [facility] 12/10/2011 [facility] amoxicillin 875 mg oral tablet 875 mg, 1 tab, PO, BID, 20 tab, Substitution Allowed, TAB PO Active [facility] 12/10/2011 [facility] predniSONE 60 mg, 3 tab, Route: PO, Drug form: TAB, ONCE, Dosing Weight 68.182, kg, Priority: STAT, Start date: 12/10/11 1:19:00, Stop date: 12/10/11 1:19:00 PO No Longer Active [facility] 12/10/2011 [facility] albuterol 0.083% inhalation solution 2.5 mg, Route: INHALATION, ONCE, Dosing Weight 68.182, kg, Start date: 12/10/11 0:40:00, Stop date: 12/10/11 0:40:00 INHALATION No Longer Active [facility] 12/10/2011 [facility] albuterol 0.083% inhalation solution 2.5 mg, 3.01 mL, Route: INHALATION, Drug form: SOLN, ONCE, Dosing Weight 68.182, kg, Start date: 12/10/11 0:20:00, Stop date: 12/10/11 0:20:00 INHALATION No Longer Active [facility] 12/10/2011 [facility] albuterol-ipratropium 2.5-0.5 mg inhalation solution 3 mL, Route: INHALATION, Drug Form: SOLN, Dosing Weight 68.182, kg, ONCE, Start date: 12/10/11 0:20:00, Stop date: 12/10/11 0:20:00 INHALATION No Longer Active [facility] 12/10/2011 [facility] Zithromax Z-Joe 250 mg oral tablet Take 2 Tabs on Day 1, THEN 1 Tab Daily Day 2 to 4, PO, Daily, 1 Pack, Substitution Allowed, Take as directedTake as directed PO Active [facility] 10/07/2011 [facility] albuterol CFC free 90 mcg/inh inhalation aerosol with adapter 1 puff, INHALATION, Q4H, PRN, 1 unit, for wheezing, Substitution Allowed, Soft Stop, AERO INHALATION Active [facility] 10/07/2011 [facility] Medrol 4 mg oral tablet 1 pkt, PO, ONCE, 6 pkt, Substitution Allowed, as directed on package labeling, TABas directed on package labeling PO Active [facility] 10/07/2011 [facility] albuterol CFC free 90 mcg/inh inhalation aerosol with adapter 2 puff, INHALATION, Q6H, PRN, 1 pkt, for wheezing, Substitution Allowed, Soft Stop, AERO INHALATION Active [facility] 10/07/2011 [facility] Zithromax Z-Joe 250 mg oral tablet 250 mg, 1 tab, PO, Daily, 1 Pack, Substitution Allowed, TAKE 2 TABLETS ON DAY 1; TAKE 1 TABLET ON DAYS 2 - 5TAKE 2 TABLETS ON DAY 1; TAKE 1 TABLET ON DAYS 2 - 5 PO Active [facility] 10/07/2011 [facility] Medrol Dosepak 4 mg Tablet As Directed by Physician; Follow Label, PO, Daily, 1 Pack, Substitution Allowed PO Active [facility] 10/07/2011 [facility] Saline Flush 0.9% 5 ml, Route: IVP, Drug Form: INJ, PRN, PRN Line Flush, Start date: 10/07/11 6:20:00, Duration: 30 day, Stop date: 11/06/11 6:19:00 IVP No Longer Active [facility] 10/07/2011 [facility] methylPREDNISolone SODium SUCCinate taper each day 125 mg, Route: IVP, ONCE, Priority: STAT, Start date: 10/07/11 6:20:00, Stop date: 10/07/11 6:20:00 IVP No Longer Active [facility] 10/07/2011 [facility] magnesium sulfate 2 gm, Route: IVPB, ONCE, Priority: STAT, Start date: 10/07/11 6:20:00, Stop date: 10/07/11 6:20:00 IVPB No Longer Active [facility] 10/07/2011 [facility] DuoNeb inhalation solution 3 mL, Route: INHALATION, ONCE, Start date: 10/07/11 6:17:00, Stop date: 10/07/11 6:17:00 INHALATION No Longer Active [facility] 10/07/2011 [facility] Periactin 4 mg oral tablet 4 mg, 1 tab, PO, TID, 30 tab, Substitution Allowed, TAB PO Active [facility] 09/30/2011 [facility] albuterol 90 mcg/inh inhalation aerosol 2 puff, INHALATION, QID, PRN, 1 unit, wheezing, Substitution Allowed, Soft Stop INHALATION Active [facility] 09/30/2011 [facility] predniSONE 60 mg, 3 tab, Route: PO, Drug form: TAB, ONCE, Priority: STAT, Start date: 09/29/11 17:43:00, Stop date: 09/29/11 17:43:00 PO No Longer Active [facility] 09/29/2011 [facility] albuterol-ipratropium 3 ml, Route: NEB, Drug Form: SOLN, Q15Min, STAT, Start date: 09/29/11 17:43:00, Duration: 3 doses or times, Stop date: 09/29/11 18:13:00 NEB No Longer Active [facility] 09/29/2011 [facility] Saline Flush 0.9% 5 ml, Route: IVP, Drug Form: INJ, PRN, PRN Line Flush, Start date: 09/29/11 17:43:00, Duration: 30 day, Stop date: 10/29/11 17:42:00 IVP No Longer Active [facility] 09/29/2011 [facility] albuterol CFC free 90 mcg/inh inhalation aerosol with adapter 2 puff, INHALATION, Q4H, PRN, 1 unit, for wheezing, Substitution Allowed, Soft Stop, AERO INHALATION Active [facility] 09/04/2011 [facility] predniSONE 50 mg oral tablet 50 mg, 1 tab, PO, Daily, 5 tab, Substitution Allowed, TAB PO Active [facility] 09/04/2011 [facility] albuterol-ipratropium 3 ml, Route: NEB, Drug Form: SOLN, Q15Min, STAT, Start date: 09/04/11 15:56:00, Duration: 3 doses or times, Stop date: 09/04/11 16:26:00 NEB No Longer Active [facility] 09/04/2011 [facility] magnesium sulfate 2 gm, Route: IVPB, ONCE, Priority: STAT, Start date: 09/04/11 15:56:00, Stop date: 09/04/11 15:56:00 IVPB No Longer Active [facility] 09/04/2011 [facility] methylPREDNISolone SODium SUCCinate taper each day 125 mg, Route: IVP, ONCE, Priority: STAT, Start date: 09/04/11 15:56:00, Stop date: 09/04/11 15:56:00 IVP No Longer Active [facility] 09/04/2011 [facility] magnesium sulfate 2 gm in Water 50 ml 2 gm, Route: IV, ONCE, Priority: STAT, Start date: 09/04/11 15:54:00, Stop date: 09/04/11 15:54:00 IV No Longer Active [facility] 09/04/2011 [facility] SoluMedrol 125 mg, Route: IV, ONCE, Priority: STAT, Start date: 09/04/11 15:51:00, Stop date: 09/04/11 15:51:00 IV No Longer Active [facility] 09/04/2011 [facility] DuoNeb inhalation solution 9 mL, Route: INHALATION, ONCE, STAT, Start date: 09/04/11 15:51:00, Stop date: 09/04/11 15:51:00 INHALATION No Longer Active [facility] 09/04/2011 [facility] Allergies, Adverse Reactions, Alerts Substance Category Reaction Severity Reaction type Status Date Reported Comments Source Rocephin Assertion Drug allergy Active [facility] Immunizations Immunization Date Given Site Status Last Updated Comments Source tuberculin purified protein derivative 10/13/2012 Not Given [place] pneumococcal 23-valent vaccine 10/13/2012 completed [place] [facility] pneumococcal 23-valent vaccine 10/13/2012 Left deltoid completed [facility] [facility] influenza virus vaccine, inactivated 04/09/2012 completed [place] [facility] influenza virus vaccine, inactivated 04/09/2012 Left deltoid completed [place] [facility] Results Order Name Results Value Reference Range Date Interpretation Comments Source Cardiac SPECT multi studies NM Cardiac SPECT multi studies NM Stress ECG RESULTS: The patient was stress by continuous graded treadmill for 6:01 minutes to stage 3 of the Larry protocol . No cardiac symptoms were reported during stress or recovery. The heart rate campos from 110 beats per minute at rest to 160 beats per minute at peak stress which is 96% of the predicted maximum. This response is adequate. The blood pressure campos from 118/76 mmHg at rest to 130/64 mmHg during stress. This response is normal. The resting ecg showed sinus rhythm with ST/T wave abnormality in the inferolateral leads. ST/T wave changes persisted with stress. MYOCARDIAL PERFUSION IMAGING: Supine gated myocardial perfusion SPECT imaging was carried out with intravenous Tc-99m sestamibi lexiscan using 10mCi and same day 31 mCi at rest. Both sets of images are within normal limits. CONCLUSIONS: 1. The overall quality of the study is excellent. 2. Normal hemodynamic treadmill test. 3. Normal ECG treadmill test with a false positive at baseline. 4. Normal treadmill Tc-99m sestamibi study. 5. Gated perfusion images by QGS show an ejection fraction of >70% 05/25/2016 - - Read by: Den Singh MD Dictated Date/time: 05/25/16 14:17 Electronically Signed by: Den Singh MD 05/25/16 14:21 FINAL REPORT [facility] CARDIAC ENZYMES BNP 12 pg/mL <=100 pg/mL 05/25/2016 [facility] CARDIAC ENZYMES CK MB Index 1.0 0.0 - 2.5 05/25/2016 [facility] CARDIAC ENZYMES Troponin-I null 0.00 - 0.40 05/25/2016 [facility] CARDIAC ENZYMES CK MB 1.3 ng/mL 0.5 - 3.6 05/25/2016 [facility] CARDIAC ENZYMES Total CK 134 unit/L 12 - 191 05/25/2016 [facility] CHEM PANEL Magnesium Lvl 2.3 mg/dL 1.8 - 2.4 05/25/2016 [facility] CHEM PANEL Phosphorus 3.1 mg/dL 2.5 - 4.5 05/25/2016 [facility] CHEM PANEL eGFR 66 mL/min/1.73m2 05/25/2016 Result Comment: The eGFR is calculated using the CKD-EPI formula. In most young, healthy individuals the eGFR will be >90 mL/min/1.73m2. The eGFR declines with age. An eGFR of 60-89 may be normal in some populations, particularly the elderly, for whom the CKD-EPI formula has not been extensively validated. Use of the eGFR is not recommended in the following populations: Individuals with unstable creatinine concentrations, including patients and those with serious co-morbid conditions. Patients with extremes in muscle mass or diet. The data above are obtained from the National Kidney Disease Education Program (NKDEP) which additionally recommends that when the eGFR is used in patients with extremes of body mass index for purposes of drug dosing, the eGFR should be multiplied by the estimated BMI. [facility] CHEM PANEL Calcium Lvl 8.7 mg/dL 8.5 - 10.5 05/25/2016 [facility] CHEM PANEL BUN 13 mg/dL 7 - 22 05/25/2016 [facility] CHEM PANEL Sodium Lvl 144 meq/L 135 - 145 05/25/2016 [facility] CHEM PANEL Glucose Lvl 82 mg/dL 70 - 99 05/25/2016 [facility] CHEM PANEL Potassium Lvl 3.7 meq/L 3.5 - 5.1 05/25/2016 [facility] CHEM PANEL Chloride Lvl 109 meq/L 95 - 109 05/25/2016 [facility] CHEM PANEL AGAP 10.7 meq/L 10.0 - 20.0 05/25/2016 [facility] CHEM PANEL CO2 28 meq/L 24 - 32 05/25/2016 [facility] CHEM PANEL Total Protein 7.5 g/dL 6.4 - 8.4 05/25/2016 [facility] CHEM PANEL B/C Ratio 12 6 - 25 05/25/2016 [facility] CHEM PANEL Bili Total 0.2 mg/dL 0.2 - 1.3 05/25/2016 [facility] CHEM PANEL Alk Phos 81 unit/L 39 - 136 05/25/2016 [facility] CHEM PANEL AST 18 unit/L 0 - 37 05/25/2016 [facility] CHEM PANEL Creatinine Lvl 1.10 mg/dL 0.50 - 1.40 05/25/2016 [facility] CHEM PANEL ALT 17 unit/L 0 - 65 05/25/2016 [facility] CHEM PANEL Albumin Lvl 3.5 g/dL 3.5 - 5.0 05/25/2016 [facility] CHEM PANEL Globulin 4.0 g/dL 2.7 - 4.2 05/25/2016 [facility] CHEM PANEL A/G Ratio 0.9 0.7 - 1.6 05/25/2016 [facility] HEMATOLOGY Lymphocytes # 3.0 K/CMM 1.0 - 5.5 05/25/2016 [facility] HEMATOLOGY Segs 50.8 % 45.0 - 75.0 05/25/2016 [facility] HEMATOLOGY Monocytes 7.4 % 2.0 - 12.0 05/25/2016 [facility] HEMATOLOGY Lymphocytes 35.1 % 20.0 - 40.0 05/25/2016 [facility] HEMATOLOGY Eosinophils 5.6 % 0.0 - 4.0 05/25/2016 [facility] HEMATOLOGY Basophils # 0.1 K/CMM 0.0 - 0.2 05/25/2016 [facility] HEMATOLOGY Segs-Bands # 4.4 K/CMM 1.5 - 8.1 05/25/2016 [facility] Basophils 1.1 % 0.0 - 1.0 05/25/2016 [facility] Eosinophils # 0.5 K/CMM 0.0 - 0.5 05/25/2016 [facility] Monocytes # 0.6 K/CMM 0.0 - 0.8 05/25/2016 [facility] PTT 26.9 s 22.9 - 35.8 05/25/2016 [facility] PT 12.3 s 12.0 - 14.7 05/25/2016 [facility] INR 0.90 0.85 - 1.17 05/25/2016 [facility] MPV 8.0 fL 7.4 - 10.4 05/25/2016 [facility] Platelet 324 K/CMM 133 - 450 05/25/2016 [facility] RDW 14.7 % 11.5 - 14.5 05/25/2016 [facility] MCH 28.3 pg 27.0 - 31.0 05/25/2016 [facility] Hct 38.2 % 36.0 - 48.0 05/25/2016 [facility] MCV 86.8 fL 80.0 - 98.0 05/25/2016 [facility] MCHC 32.6 g/dL 32.0 - 36.0 05/25/2016 [facility] Hgb 12.4 g/dL 12.0 - 16.0 05/25/2016 [facility] RBC 4.40 M/CMM 4.20 - 5.40 05/25/2016 [facility] WBC 8.7 K/CMM 3.7 - 10.4 05/25/2016 [facility] Chest 1view DX Chest 1view DX Clinical Indication: Dyspnea - shortness of breath Comparison: 05/24/2016 FINDINGS: HEART: Cardiomediastinal silhouette unremarkable. PULMONARY VASCULATURE: The pulmonary vasculature is unremarkable. LUNGS: Lung volumes are maintained. There are no pneumothoraces noted. Costophrenic sulci: -Right costophrenic sulcus: The right costophrenic sulcus is sharp without evidence for pleural effusions or thickening. -Left costophrenic sulcus: The left costophrenic sulcus is sharp without evidence for pleural effusions or thickening. BONES: The visualized osseous structures are unremarkable. IMPRESSION: 1. Unremarkable chest x-ray. SL: [id number] 05/25/2016 - - Read by: Darvin Dwyer DO Dictated Date/time: 05/25/16 05:39 Electronically Signed by: Darvin Dwyer DO 05/25/16 05:45 FINAL REPORT [facility] CARDIAC ENZYMES BNP 10 pg/mL <=100 pg/mL 05/24/2016 [facility] CARDIAC ENZYMES Total CK 154 unit/L 12 - 191 05/24/2016 [facility] CARDIAC ENZYMES CK MB 1.2 ng/mL 0.5 - 3.6 05/24/2016 [facility] CARDIAC ENZYMES Troponin-I null 0.00 - 0.40 05/24/2016 [facility] CARDIAC ENZYMES CK MB Index 0.8 0.0 - 2.5 05/24/2016 [facility] CHEM PANEL eGFR 77 mL/min/1.73m2 05/24/2016 Result Comment: The eGFR is calculated using the CKD-EPI formula. In most young, healthy individuals the eGFR will be >90 mL/min/1.73m2. The eGFR declines with age. An eGFR of 60-89 may be normal in some populations, particularly the elderly, for whom the CKD-EPI formula has not been extensively validated. Use of the eGFR is not recommended in the following populations: Individuals with unstable creatinine concentrations, including patients and those with serious co-morbid conditions. Patients with extremes in muscle mass or diet. The data above are obtained from the National Kidney Disease Education Program (NKDEP) which additionally recommends that when the eGFR is used in patients with extremes of body mass index for purposes of drug dosing, the eGFR should be multiplied by the estimated BMI. [facility] CHEM PANEL B/C Ratio 21 6 - 25 05/24/2016 [facility] CHEM PANEL A/G Ratio 1.0 0.7 - 1.6 05/24/2016 [facility] CHEM PANEL Globulin 3.7 g/dL 2.7 - 4.2 05/24/2016 [facility] CHEM PANEL Glucose Lvl 97 mg/dL 70 - 99 05/24/2016 [facility] CHEM PANEL BUN 20 mg/dL 7 - 22 05/24/2016 [facility] CHEM PANEL Creatinine Lvl 0.97 mg/dL 0.50 - 1.40 05/24/2016 [facility] CHEM PANEL Potassium Lvl 3.5 meq/L 3.5 - 5.1 05/24/2016 [facility] CHEM PANEL Sodium Lvl 141 meq/L 135 - 145 05/24/2016 [facility] CHEM PANEL Alk Phos 78 unit/L 39 - 136 05/24/2016 [facility] CHEM PANEL AST 19 unit/L 0 - 37 05/24/2016 [facility] CHEM PANEL AGAP 16.5 meq/L 10.0 - 20.0 05/24/2016 [facility] CHEM PANEL Bili Total 0.1 mg/dL 0.2 - 1.3 05/24/2016 [facility] CHEM PANEL ALT 19 unit/L 0 - 65 05/24/2016 [facility] CHEM PANEL CO2 22 meq/L 24 - 32 05/24/2016 [facility] CHEM PANEL Calcium Lvl 8.9 mg/dL 8.5 - 10.5 05/24/2016 [facility] CHEM PANEL Chloride Lvl 106 meq/L 95 - 109 05/24/2016 [facility] CHEM PANEL Total Protein 7.5 g/dL 6.4 - 8.4 05/24/2016 [facility] CHEM PANEL Albumin Lvl 3.8 g/dL 3.5 - 5.0 05/24/2016 [facility] HEMATOLOGY WBC 10.8 K/CMM 3.7 - 10.4 05/24/2016 [facility] Hct 36.9 % 36.0 - 48.0 05/24/2016 [facility] Hgb 12.2 g/dL 12.0 - 16.0 05/24/2016 [facility] RBC 4.25 M/CMM 4.20 - 5.40 05/24/2016 [facility] MPV 8.3 fL 7.4 - 10.4 05/24/2016 [facility] MCH 28.6 pg 27.0 - 31.0 05/24/2016 [facility] MCV 87.0 fL 80.0 - 98.0 05/24/2016 [facility] Platelet 300 K/CMM 133 - 450 05/24/2016 [facility] RDW 14.5 % 11.5 - 14.5 05/24/2016 [facility] MCHC 32.9 g/dL 32.0 - 36.0 05/24/2016 [facility] Monocytes # 0.6 K/CMM 0.0 - 0.8 05/24/2016 [facility] HEMATOLOGY Eosinophils # 0.5 K/CMM 0.0 - 0.5 05/24/2016 [facility] HEMATOLOGY Basophils # 0.1 K/CMM 0.0 - 0.2 05/24/2016 [facility] HEMATOLOGY Lymphocytes 39.0 % 20.0 - 40.0 05/24/2016 [facility] HEMATOLOGY Segs 50.3 % 45.0 - 75.0 05/24/2016 [facility] HEMATOLOGY Monocytes 5.4 % 2.0 - 12.0 05/24/2016 [facility] HEMATOLOGY Eosinophils 4.4 % 0.0 - 4.0 05/24/2016 [facility] HEMATOLOGY Lymphocytes # 4.2 K/CMM 1.0 - 5.5 05/24/2016 [facility] HEMATOLOGY Basophils 0.9 % 0.0 - 1.0 05/24/2016 [facility] HEMATOLOGY Segs-Bands # 5.4 K/CMM 1.5 - 8.1 05/24/2016 [facility] Chest 1view DX Chest 1view DX Portable chest: The aorta is tortuous. The cardiomediastinal silhouette, pulmonary vasculature and lucrecia are otherwise within normal limits. The lungs and pleural spaces are clear. There are no significant osseous abnormalities. There is no significant change compared to 06/14/2015. IMPRESSION: No acute radiographic abnormalities in the chest. [id number] 05/24/2016 - - Read by: Jam Read MD Dictated Date/time: 05/24/16 13:51 Electronically Signed by: Jam Read MD 05/24/16 13:52 FINAL REPORT [facility] CARDIAC ENZYMES CK MB Index 1.1 0.0 - 2.5 06/14/2015 [facility] CARDIAC ENZYMES BNP 6 pg/mL <=100 pg/mL 06/14/2015 [facility] CARDIAC ENZYMES Troponin-I null 0.00 - 0.40 06/14/2015 [facility] CARDIAC ENZYMES Total CK 157 unit/L 12 - 191 06/14/2015 [facility] CARDIAC ENZYMES CK MB 1.8 ng/mL 0.5 - 3.6 06/14/2015 [facility] CHEM PANEL Glucose Lvl 96 mg/dL 70 - 99 06/14/2015 [facility] CHEM PANEL BUN 13 mg/dL 7 - 22 06/14/2015 [facility] CHEM PANEL Creatinine Lvl 0.94 mg/dL 0.50 - 1.40 06/14/2015 [facility] CHEM PANEL Potassium Lvl 3.6 meq/L 3.5 - 5.1 06/14/2015 [facility] CHEM PANEL Chloride Lvl 104 meq/L 95 - 109 06/14/2015 [facility] CHEM PANEL Sodium Lvl 138 meq/L 135 - 145 06/14/2015 [facility] CHEM PANEL CO2 30 meq/L 24 - 32 06/14/2015 [facility] CHEM PANEL Calcium Lvl 9.0 mg/dL 8.5 - 10.5 06/14/2015 [facility] CHEM PANEL eGFR 80 mL/min/1.73m2 06/14/2015 Result Comment: The eGFR is calculated using the CKD-EPI formula. In most young, healthy individuals the eGFR will be >90 mL/min/1.73m2. The eGFR declines with age. An eGFR of 60-89 may be normal in some populations, particularly the elderly, for whom the CKD-EPI formula has not been extensively validated. Use of the eGFR is not recommended in the following populations: Individuals with unstable creatinine concentrations, including patients and those with serious co-morbid conditions. Patients with extremes in muscle mass or diet. The data above are obtained from the National Kidney Disease Education Program (NKDEP) which additionally recommends that when the eGFR is used in patients with extremes of body mass index for purposes of drug dosing, the eGFR should be multiplied by the estimated BMI. [facility] CHEM PANEL A/G Ratio 1.0 0.7 - 1.6 06/14/2015 [facility] CHEM PANEL ALT 20 unit/L 0 - 65 06/14/2015 [facility] CHEM PANEL AST 19 unit/L 0 - 37 06/14/2015 [facility] CHEM PANEL Total Protein 8.2 g/dL 6.4 - 8.4 06/14/2015 [facility] CHEM PANEL Albumin Lvl 4.2 g/dL 3.5 - 5.0 06/14/2015 [facility] CHEM PANEL Alk Phos 78 unit/L 39 - 136 06/14/2015 [facility] CHEM PANEL B/C Ratio 14 6 - 25 06/14/2015 [facility] CHEM PANEL Globulin 4.0 g/dL 2.0 - 4.0 06/14/2015 [facility] CHEM PANEL Bili Total 0.1 mg/dL 0.2 - 1.3 06/14/2015 [facility] CHEM PANEL AGAP 7.6 meq/L 10.0 - 20.0 06/14/2015 [facility] HEMATOLOGY Segs-Bands # 7.3 K/CMM 1.5 - 8.1 06/14/2015 [facility] HEMATOLOGY Lymphocytes # 1.0 K/CMM 1.0 - 5.5 06/14/2015 [facility] Monocytes 1.3 % 2.0 - 12.0 06/14/2015 [facility] Eosinophils 0.7 % 0.0 - 4.0 06/14/2015 [facility] Basophils 0.9 % 0.0 - 1.0 06/14/2015 [facility] Lymphocytes 11.9 % 20.0 - 40.0 06/14/2015 [facility] Eosinophils # 0.1 K/CMM 0.0 - 0.5 06/14/2015 [facility] Basophils # 0.1 K/CMM 0.0 - 0.2 06/14/2015 [facility] Monocytes # 0.1 K/CMM 0.0 - 0.8 06/14/2015 [facility] Segs 85.2 % 45.0 - 75.0 06/14/2015 [facility] MPV 8.1 fL 7.4 - 10.4 06/14/2015 [facility] Platelet 315 K/CMM 133 - 450 06/14/2015 [facility] MCV 89.0 fL 80.0 - 98.0 06/14/2015 [facility] Hct 40.1 % 36.0 - 48.0 06/14/2015 [facility] MCHC 32.2 g/dL 32.0 - 36.0 06/14/2015 [facility] MCH 28.6 pg 27.0 - 31.0 06/14/2015 [facility] RDW 14.2 % 11.5 - 14.5 06/14/2015 [facility] Hgb 12.9 g/dL 12.0 - 16.0 06/14/2015 [facility] RBC 4.50 M/CMM 4.20 - 5.40 06/14/2015 [facility] WBC 8.6 K/CMM 3.7 - 10.4 06/14/2015 [facility] PT 12.7 s 12.0 - 14.7 06/14/2015 [facility] INR 0.92 0.85 - 1.17 06/14/2015 [facility] PTT 26.8 s 22.9 - 35.8 06/14/2015 [facility] Chest 2 views DX Chest 2 views DX EXAM: Chest 2 views DX DATE: 06/14/2015 12:36 PM CDT INDICATION: Chest pain COMPARISON: 02/20/2015 IMPRESSION: Stable cardiac silhouette and mediastinum. Tortuous atherosclerotic thoracic aorta. The lungs are mildly hyperexpanded. No focal consolidation, significant pleural effusion or pneumothorax. SL: [id number] 06/14/2015 - - Read by: Raj Pinon MD Dictated Date/time: 06/14/15 13:32 Electronically Signed by: Raj Pinon MD 06/14/15 13:32 FINAL REPORT [facility] CHEM PANEL eGFR 82 mL/min/1.73m2 02/21/2015 Result Comment: The eGFR is calculated using the CKD-EPI formula. In most young, healthy individuals the eGFR will be >90 mL/min/1.73m2. The eGFR declines with age. An eGFR of 60-89 may be normal in some populations, particularly the elderly, for whom the CKD-EPI formula has not been extensively validated. Use of the eGFR is not recommended in the following populations: Individuals with unstable creatinine concentrations, including patients and those with serious co-morbid conditions. Patients with extremes in muscle mass or diet. The data above are obtained from the National Kidney Disease Education Program (NKDEP) which additionally recommends that when the eGFR is used in patients with extremes of body mass index for purposes of drug dosing, the eGFR should be multiplied by the estimated BMI. [facility] CHEM PANEL Chloride Lvl 107 meq/L 95 - 109 02/21/2015 [facility] CHEM PANEL Sodium Lvl 141 meq/L 135 - 145 02/21/2015 [facility] CHEM PANEL Potassium Lvl 3.7 meq/L 3.5 - 5.1 02/21/2015 [facility] CHEM PANEL Creatinine Lvl 0.92 mg/dL 0.50 - 1.40 02/21/2015 [facility] CHEM PANEL Glucose Lvl 106 mg/dL 70 - 99 02/21/2015 [facility] CHEM PANEL BUN 13 mg/dL 7 - 22 02/21/2015 [facility] CHEM PANEL Alk Phos 78 unit/L 39 - 136 02/21/2015 [facility] CHEM PANEL Bili Total 0.3 mg/dL 0.2 - 1.3 02/21/2015 [facility] CHEM PANEL AST 18 unit/L 0 - 37 02/21/2015 [facility] CHEM PANEL Albumin Lvl 3.8 g/dL 3.5 - 5.0 02/21/2015 [facility] CHEM PANEL ALT 19 unit/L 0 - 65 02/21/2015 [facility] CHEM PANEL Calcium Lvl 8.9 mg/dL 8.5 - 10.5 02/21/2015 [facility] CHEM PANEL Total Protein 7.7 g/dL 6.4 - 8.4 02/21/2015 [facility] CHEM PANEL CO2 27 meq/L 24 - 32 02/21/2015 [facility] CHEM PANEL Globulin 3.9 g/dL 2.0 - 4.0 02/21/2015 [facility] CHEM PANEL A/G Ratio 1.0 0.7 - 1.6 02/21/2015 [facility] CHEM PANEL AGAP 10.7 meq/L 10.0 - 20.0 02/21/2015 [facility] CHEM PANEL B/C Ratio 14 6 - 25 02/21/2015 [facility] HEMATOLOGY MCV 90.8 fL 80.0 - 98.0 02/21/2015 [facility] Hgb 12.6 g/dL 12.0 - 16.0 02/21/2015 [facility] RBC 4.54 M/CMM 4.20 - 5.40 02/21/2015 [facility] WBC 12.1 K/CMM 3.7 - 10.4 02/21/2015 [facility] Hct 41.2 % 36.0 - 48.0 02/21/2015 [facility] Platelet 344 K/CMM 133 - 450 02/21/2015 [facility] MPV 8.7 fL 7.4 - 10.4 02/21/2015 [facility] MCHC 30.6 g/dL 32.0 - 36.0 02/21/2015 [facility] MCH 27.8 pg 27.0 - 31.0 02/21/2015 [facility] RDW 15.2 % 11.5 - 14.5 02/21/2015 [facility] Basophils # 0.2 K/CMM 0.0 - 0.2 02/21/2015 [facility] Target Cell Slight 02/21/2015 [facility] Tear Cell Sllight 02/21/2015 [facility] Schistocyte 1-3 per HPF (02/20/15 6:07 PM) None Seen 02/21/2015 [facility] Large Plt Slight 02/21/2015 [facility] Plt Morph Normal (02/20/15 6:07 PM) 02/21/2015 [facility] Segs 44.5 % 45.0 - 75.0 02/21/2015 [facility] Lymphocytes 40.9 % 20.0 - 40.0 02/21/2015 [facility] HEMATOLOGY Monocytes 5.2 % 2.0 - 12.0 02/21/2015 [facility] HEMATOLOGY Eosinophils 8.1 % 0.0 - 4.0 02/21/2015 [facility] HEMATOLOGY Basophils 1.3 % 0.0 - 1.0 02/21/2015 [facility] HEMATOLOGY Segs-Bands # 5.4 K/CMM 1.5 - 8.1 02/21/2015 [facility] HEMATOLOGY Lymphocytes # 4.9 K/CMM 1.0 - 5.5 02/21/2015 [facility] Monocytes # 0.6 K/CMM 0.0 - 0.8 02/21/2015 [facility] HEMATOLOGY Eosinophils # 1.0 K/CMM 0.0 - 0.5 02/21/2015 [facility] IMMUNOLOGY CDC HIV 4th GEN Negative (02/20/15 6:07 PM) Negative 02/21/2015 [facility]-Hep C Ab Negative *NA* (02/20/15 6:07 PM) Negative 02/21/2015 [facility] Chest 1view DX Chest 1view DX PORTABLE CHEST 02/20/2015 AT 1800 HOURS. INDICATION: Dyspnea. COMPARISON: Chest 01/23/2015. Image projection is lordotic. The heart and mediastinum are not remarkable. The lungs are emphysematous. No pneumonia, vascular congestion or pleural effusion is seen. No change has occurred. SL: 12 02/20/2015 - - Read by: Brandyn Valentin MD Dictated Date/time: 02/20/15 18:23 Electronically Signed by: Brandyn Valentin MD 02/20/15 18:24 FINAL REPORT [facility] Chest 1view DX Chest 1view DX Examination: Chest x-ray, single view History: Chest pain , cough Comparison: 01/03/2015 Findings: The lungs are clear and without focal consolidation. The cardiomediastinal silhouette is within normal limits. No pleural effusion or pneumothorax is seen. The osseous structures are without focal abnormality. IMPRESSION: No acute cardiopulmonary disease. SL: 16 01/23/2015 - - Read by: Osmel Scott MD Dictated Date/time: 01/23/15 10:29 Electronically Signed by: Osmel Scott MD 01/23/15 10:30 FINAL REPORT [facility] CARDIAC ENZYMES Troponin-I null 0.00 - 0.40 01/03/2015 [facility] CARDIAC ENZYMES BNP 10 pg/mL <=100 pg/mL 01/03/2015 [facility] CARDIAC ENZYMES CK MB 1.7 ng/mL 0.5 - 3.6 01/03/2015 [facility] CARDIAC ENZYMES Total CK 161 unit/L 12 - 191 01/03/2015 [facility] CARDIAC ENZYMES CK MB Index 1.1 0.0 - 2.5 01/03/2015 [facility] ELECTROLYTES CO2 24 meq/L 24 - 32 01/03/2015 [facility] ELECTROLYTES Alk Phos 78 unit/L 39 - 136 01/03/2015 [facility] ELECTROLYTES AST 23 unit/L 0 - 37 01/03/2015 [facility] ELECTROLYTES ALT 23 unit/L 0 - 65 01/03/2015 [facility] ELECTROLYTES Total Protein 7.5 g/dL 6.4 - 8.4 01/03/2015 [facility] ELECTROLYTES B/C Ratio 13 6 - 25 01/03/2015 [facility] ELECTROLYTES AGAP 11.8 meq/L 10.0 - 20.0 01/03/2015 [facility] ELECTROLYTES Bili Total 0.1 mg/dL 0.2 - 1.3 01/03/2015 [facility] ELECTROLYTES A/G Ratio 1.0 0.7 - 1.6 01/03/2015 [facility] ELECTROLYTES Globulin 3.7 g/dL 2.0 - 4.0 01/03/2015 [facility] ELECTROLYTES eGFR 67 mL/min/1.73m2 01/03/2015 Result Comment: The eGFR is calculated using the CKD-EPI formula. In most young, healthy individuals the eGFR will be >90 mL/min/1.73m2. The eGFR declines with age. An eGFR of 60-89 may be normal in some populations, particularly the elderly, for whom the CKD-EPI formula has not been extensively validated. Use of the eGFR is not recommended in the following populations: Individuals with unstable creatinine concentrations, including patients and those with serious co-morbid conditions. Patients with extremes in muscle mass or diet. The data above are obtained from the National Kidney Disease Education Program (NKDEP) which additionally recommends that when the eGFR is used in patients with extremes of body mass index for purposes of drug dosing, the eGFR should be multiplied by the estimated BMI. [facility] ELECTROLYTES Creatinine Lvl 1.1 mg/dL 0.5 - 1.4 01/03/2015 [facility] ELECTROLYTES BUN 14 mg/dL 7 - 22 01/03/2015 [facility] ELECTROLYTES Glucose Lvl 102 mg/dL 70 - 99 01/03/2015 [facility] ELECTROLYTES Albumin Lvl 3.8 g/dL 3.5 - 5.0 01/03/2015 [facility] ELECTROLYTES Calcium Lvl 8.8 mg/dL 8.5 - 10.5 01/03/2015 [facility] ELECTROLYTES Potassium Lvl 3.8 meq/L 3.5 - 5.1 01/03/2015 [facility] ELECTROLYTES Chloride Lvl 110 meq/L 95 - 109 01/03/2015 [facility] ELECTROLYTES Sodium Lvl 142 meq/L 135 - 145 01/03/2015 [facility] HEMATOLOGY INR 0.93 0.85 - 1.17 01/03/2015 [facility] HEMATOLOGY PT 12.8 s 12.0 - 14.7 01/03/2015 [facility] HEMATOLOGY PTT 27.2 s 22.9 - 35.8 01/03/2015 [facility] HEMATOLOGY MCV 89.7 fL 80.0 - 98.0 01/03/2015 [facility] HEMATOLOGY MCHC 32.0 g/dL 32.0 - 36.0 01/03/2015 [facility] HEMATOLOGY MCH 28.7 pg 27.0 - 31.0 01/03/2015 [facility] HEMATOLOGY WBC 10.9 K/CMM 3.7 - 10.4 01/03/2015 [facility] HEMATOLOGY RBC 4.40 M/CMM 4.20 - 5.40 01/03/2015 [facility] HEMATOLOGY Hct 39.4 % 36.0 - 48.0 01/03/2015 [facility] HEMATOLOGY Hgb 12.6 g/dL 12.0 - 16.0 01/03/2015 [facility] HEMATOLOGY RDW 15.0 % 11.5 - 14.5 01/03/2015 [facility] HEMATOLOGY Platelet 303 K/CMM 133 - 450 01/03/2015 [facility] HEMATOLOGY MPV 8.3 fL 7.4 - 10.4 01/03/2015 [facility] HEMATOLOGY Basophils # 0.1 K/CMM 0.0 - 0.2 01/03/2015 [facility] HEMATOLOGY Basophils 0.9 % 0.0 - 1.0 01/03/2015 [facility] HEMATOLOGY Monocytes 6.8 % 2.0 - 12.0 01/03/2015 [facility] HEMATOLOGY Lymphocytes 45.2 % 20.0 - 40.0 01/03/2015 [facility] HEMATOLOGY Eosinophils 5.5 % 0.0 - 4.0 01/03/2015 [facility] HEMATOLOGY Segs 41.6 % 45.0 - 75.0 01/03/2015 [facility] HEMATOLOGY Monocytes # 0.7 K/CMM 0.0 - 0.8 01/03/2015 [facility] HEMATOLOGY Lymphocytes # 4.9 K/CMM 1.0 - 5.5 01/03/2015 [facility] HEMATOLOGY Eosinophils # 0.6 K/CMM 0.0 - 0.5 01/03/2015 [facility] HEMATOLOGY Segs-Bands # 4.5 K/CMM 1.5 - 8.1 01/03/2015 [facility] Chest 1view DX Chest 1view DX CLINICAL HISTORY: Shortness of breath and chest tightness. Chest one view. Comparison 10/13/2014. Lungs are clear. Heart size normal. No pleural effusion or pneumothorax. No acute osseous abnormality. IMPRESSION: Negative SL:13 01/03/2015 - - Read by: Mao Acosta MD Dictated Date/time: 01/03/15 14:59 Electronically Signed by: Mao Acosta MD 01/03/15 15:00 FINAL REPORT [facility] CARDIAC ENZYMES Total CK 209 unit/L 12 - 191 10/13/2014 [facility] CARDIAC ENZYMES BNP 11 pg/mL <=100 pg/mL 10/13/2014 [facility] CARDIAC ENZYMES Troponin-I null 0.00 - 0.40 10/13/2014 [facility] CARDIAC ENZYMES CK MB 1.6 ng/mL 0.5 - 3.6 10/13/2014 [facility] CARDIAC ENZYMES CK MB Index 0.8 0.0 - 2.5 10/13/2014 [facility] CHEM PANEL Glucose Lvl 95 mg/dL 70 - 99 10/13/2014 [facility] CHEM PANEL CO2 28 meq/L 24 - 32 10/13/2014 [facility] CHEM PANEL BUN 12 mg/dL 7 - 22 10/13/2014 [facility] CHEM PANEL ALT 20 unit/L 0 - 65 10/13/2014 [facility] CHEM PANEL Total Protein 7.4 g/dL 6.4 - 8.4 10/13/2014 [facility] CHEM PANEL Albumin Lvl 3.6 g/dL 3.5 - 5.0 10/13/2014 [facility] CHEM PANEL Alk Phos 77 unit/L 39 - 136 10/13/2014 [facility] CHEM PANEL AST 18 unit/L 0 - 37 10/13/2014 [facility] CHEM PANEL Globulin 3.8 g/dL 2.0 - 4.0 10/13/2014 [facility] CHEM PANEL AGAP 9.7 meq/L 10.0 - 20.0 10/13/2014 [facility] CHEM PANEL B/C Ratio 15 6 - 25 10/13/2014 [facility] CHEM PANEL Bili Total 0.1 mg/dL 0.2 - 1.3 10/13/2014 [facility] CHEM PANEL A/G Ratio 0.9 0.7 - 1.6 10/13/2014 [facility] CHEM PANEL eGFR 98 mL/min/1.73m2 10/13/2014 Result Comment: The eGFR is calculated using the CKD-EPI formula. In most young, healthy individuals the eGFR will be >90 mL/min/1.73m2. The eGFR declines with age. An eGFR of 60-89 may be normal in some populations, particularly the elderly, for whom the CKD-EPI formula has not been extensively validated. Use of the eGFR is not recommended in the following populations: Individuals with unstable creatinine concentrations, including patients and those with serious co-morbid conditions. Patients with extremes in muscle mass or diet. The data above are obtained from the National Kidney Disease Education Program (NKDEP) which additionally recommends that when the eGFR is used in patients with extremes of body mass index for purposes of drug dosing, the eGFR should be multiplied by the estimated BMI. [facility] CHEM PANEL Creatinine Lvl 0.8 mg/dL 0.5 - 1.4 10/13/2014 [facility] CHEM PANEL Sodium Lvl 140 meq/L 135 - 145 10/13/2014 [facility] CHEM PANEL Calcium Lvl 8.6 mg/dL 8.5 - 10.5 10/13/2014 [facility] CHEM PANEL Chloride Lvl 106 meq/L 95 - 109 10/13/2014 [facility] CHEM PANEL Potassium Lvl 3.7 meq/L 3.5 - 5.1 10/13/2014 [facility] HEMATOLOGY MPV 8.0 fL 7.4 - 10.4 10/13/2014 [facility] MCHC 32.6 g/dL 32.0 - 36.0 10/13/2014 [facility] MCH 28.7 pg 27.0 - 31.0 10/13/2014 [facility] MCV 88.2 fL 80.0 - 98.0 10/13/2014 [facility] Hct 38.1 % 36.0 - 48.0 10/13/2014 [facility] Platelet 298 K/CMM 133 - 450 10/13/2014 [facility] RDW 14.2 % 11.5 - 14.5 10/13/2014 [facility] Hgb 12.4 g/dL 12.0 - 16.0 10/13/2014 [facility] RBC 4.32 M/CMM 4.20 - 5.40 10/13/2014 [facility] WBC 8.8 K/CMM 3.7 - 10.4 10/13/2014 [facility] PTT 28.1 s 22.9 - 35.8 10/13/2014 [facility] INR 0.94 0.85 - 1.17 10/13/2014 [facility] PT 12.6 s 12.0 - 14.7 10/13/2014 [facility] Basophils # 0.1 K/CMM 0.0 - 0.2 10/13/2014 [facility] Eosinophils # 0.5 K/CMM 0.0 - 0.5 10/13/2014 [facility] Monocytes # 0.9 K/CMM 0.0 - 0.8 10/13/2014 [facility] Lymphocytes # 4.4 K/CMM 1.0 - 5.5 10/13/2014 [facility] Segs-Bands # 2.9 K/CMM 1.5 - 8.1 10/13/2014 [facility] Eosinophils 6.0 % 0.0 - 4.0 10/13/2014 [facility] Basophils 0.7 % 0.0 - 1.0 10/13/2014 [facility] Lymphocytes 50.2 % 20.0 - 40.0 10/13/2014 [facility] Monocytes 10.2 % 2.0 - 12.0 10/13/2014 [facility] Segs 32.9 % 45.0 - 75.0 10/13/2014 [facility]-Hep C Ab Negative *NA* (10/13/14 12:10 AM) Negative 10/13/2014 [facility] IMMUNOLOGY CDC HIV 4th GEN Negative (10/13/14 12:10 AM) Negative 10/13/2014 [facility] Chest 1view DX Chest 1view DX CHEST RADIOGRAPH SINGLE VIEW INDICATION: Dyspnea COMPARISON: Chest radiograph 02/16/2014 IMPRESSION: No acute intrathoracic abnormalities are visualized. SL: 16 10/13/2014 - - Read by: Red Murphy MD Dictated Date/time: 10/13/14 00:18 Electronically Signed by: Red Murphy MD 10/13/14 00:19 FINAL REPORT [facility] Chest 2 views Chest 2 views PA and lateral: The cardiomediastinal silhouette, pulmonary vasculature and lucrecia are within normal limits. The lungs and pleural spaces are clear. There are no significant osseous abnormalities. There is no significant change compared to 12/01/2013. IMPRESSION: No acute radiographic abnormality in the chest. SL:13 02/16/2014 - - Read by: Jam Read MD Dictated Date/time: 02/16/14 15:03 Electronically Signed by: Jam Read MD 02/16/14 15:03 FINAL REPORT [facility] CHEM PANEL eGFR 67 mL/min/1.73m2 12/02/2013 1Result Comment: The eGFR is calculated using the CKD-EPI formula. In most young, healthy individuals the eGFR will be >90 mL/min/1.73m2. The eGFR declines with age. An eGFR of 60-89 may be normal in some populations, particularly the elderly, for whom the CKD-EPI formula has not been extensively validated. Use of the eGFR is not recommended in the following populations: Individuals with unstable creatinine concentrations, including patients and those with serious co-morbid conditions. Patients with extremes in muscle mass or diet. The data above are obtained from the National Kidney Disease Education Program (NKDEP) which additionally recommends that when the eGFR is used in patients with extremes of body mass index for purposes of drug dosing, the eGFR should be multiplied by the estimated BMI. [facility] CHEM PANEL Calcium Lvl 9.0 mg/dL 8.5 - 10.5 12/02/2013 [facility] CHEM PANEL CO2 27 meq/L 24 - 32 12/02/2013 [facility] CHEM PANEL Chloride Lvl 107 meq/L 95 - 109 12/02/2013 [facility] CHEM PANEL Potassium Lvl 3.3 meq/L 3.5 - 5.1 12/02/2013 [facility] CHEM PANEL Sodium Lvl 141 meq/L 135 - 145 12/02/2013 [facility] CHEM PANEL Creatinine Lvl 1.1 mg/dL 0.5 - 1.4 12/02/2013 [facility] CHEM PANEL BUN 11 mg/dL 7 - 22 12/02/2013 [facility] CHEM PANEL Glucose Lvl 127 mg/dL 70 - 99 12/02/2013 2Interpretive Data: Adult reference range values reflect the clinical guidelines of the [place] [employer]. [facility] CHEM PANEL AGAP 10.3 meq/L 10.0 - 20.0 12/02/2013 [facility] HEMATOLOGY MPV 8.1 fL 7.4 - 10.4 12/02/2013 [facility] HEMATOLOGY Platelet 326 K/CMM 133 - 450 12/02/2013 [facility] HEMATOLOGY RBC 4.22 M/CMM 4.20 - 5.40 12/02/2013 [facility] WBC 10.8 K/CMM 3.7 - 10.4 12/02/2013 [facility] MCH 29.0 pg 27.0 - 31.0 12/02/2013 [facility] MCHC 32.3 g/dL 32.0 - 36.0 12/02/2013 [facility] Hgb 12.3 g/dL 12.0 - 16.0 12/02/2013 [facility] Hct 37.9 % 36.0 - 48.0 12/02/2013 [facility] MCV 89.8 fL 80.0 - 98.0 12/02/2013 [facility] RDW 14.6 % 11.5 - 14.5 12/02/2013 [facility] Basophils # 0.1 K/CMM 0.0 - 0.2 12/02/2013 [facility] Eosinophils # 0.8 K/CMM 0.0 - 0.5 12/02/2013 [facility] HEMATOLOGY Segs-Bands # 4.7 K/CMM 1.5 - 8.1 12/02/2013 [facility] Basophils 0.7 % 0.0 - 1.0 12/02/2013 [facility] Monocytes # 0.7 K/CMM 0.0 - 0.8 12/02/2013 [facility] Lymphocytes # 4.6 K/CMM 1.0 - 5.5 12/02/2013 [facility] HEMATOLOGY Segs 43.0 % 45.0 - 75.0 12/02/2013 [facility] Monocytes 6.1 % 2.0 - 12.0 12/02/2013 [facility] Lymphocytes 42.4 % 20.0 - 40.0 12/02/2013 [facility] Eosinophils 7.8 % 0.0 - 4.0 12/02/2013 [facility] Chest 1view Chest 1view CHEST, ONE VIEW HISTORY: Dyspnea. COMPARISON: 11/01/2013 FINDINGS: The lungs are clear. No significant pleural effusion. No pneumothorax. Heart size normal. No acute osseous abnormality. SL: 14 12/01/2013 - - Read by: Onofre Alves MD Dictated Date/time: 12/01/13 21:11 Electronically Signed by: Onofre Alves MD 12/01/13 21:12 FINAL REPORT [facility] Chest 2 views Chest 2 views HISTORY: Shortness of breath. Chest 2 views. Comparison 10/13/2012. Lungs are clear. Heart size normal. There is no pleural effusion or pneumothorax. IMPRESSION: No acute finding. SL:12 11/01/2013 - - Read by: Mao Acosta MD Dictated Date/time: 11/01/13 23:53 Electronically Signed by: Mao Acosta MD 11/01/13 23:54 FINAL REPORT [facility] CHEMISTRY eGFR 76 mL/min/1.73m2 10/14/2012 NA 1Result Comment: The eGFR is calculated using the CKD-EPI formula. In most young, healthy individuals the eGFR will be >90 mL/min/1.73m2. The eGFR declines with age. An eGFR of 60-89 may be normal in some populations, particularly the elderly, for whom the CKD-EPI formula has not been extensively validated. Use of the eGFR is not recommended in the following populations: Individuals with unstable creatinine concentrations, including patients and those with serious co-morbid conditions. Patients with extremes in muscle mass or diet. The data above are obtained from the National Kidney Disease Education Program (NKDEP) which additionally recommends that when the eGFR is used in patients with extremes of body mass index for purposes of drug dosing, the eGFR should be multiplied by the estimated BMI. [facility] CHEMISTRY AST 26 unit/L 0 - 37 10/14/2012 Normal [facility] CHEMISTRY AGAP 16.1 meq/L 10.0 - 20.0 10/14/2012 Normal [facility] CHEMISTRY Bili Total null 0.2 - 1.3 10/14/2012 LOW [facility] CHEMISTRY A/G Ratio 1.2 0.7 - 1.6 10/14/2012 Normal [facility] CHEMISTRY B/C Ratio 11 6 - 25 10/14/2012 Normal [facility] CHEMISTRY Globulin 3.5 g/dL 2.0 - 4.0 10/14/2012 Normal [facility] CHEMISTRY Total Protein 7.7 g/dL 6.4 - 8.4 10/14/2012 Normal [facility] CHEMISTRY BUN 11 mg/dL 7 - 22 10/14/2012 Normal [facility] CHEMISTRY CO2 26 meq/L 24 - 32 10/14/2012 Normal [facility] CHEMISTRY Calcium Lvl 9.2 mg/dL 8.5 - 10.5 10/14/2012 Normal [facility] CHEMISTRY Creatinine Lvl 1.0 mg/dL 0.5 - 1.4 10/14/2012 Normal [facility] CHEMISTRY Albumin Lvl 4.2 g/dL 3.5 - 5.0 10/14/2012 Normal [facility] CHEMISTRY ALT 21 unit/L 0 - 65 10/14/2012 Normal [facility] CHEMISTRY Alk Phos 82 unit/L 39 - 136 10/14/2012 Normal [facility] CHEMISTRY Glucose Lvl 81 mg/dL 70 - 99 10/14/2012 Normal 2Interpretive Data: Adult reference range values reflect the clinical guidelines of the [place] [employer]. [facility] CHEMISTRY Sodium Lvl 147 meq/L 135 - 145 10/14/2012 [facility] CHEMISTRY Chloride Lvl 109 meq/L 95 - 109 10/14/2012 Normal [facility] CHEMISTRY Potassium Lvl 4.1 meq/L 3.5 - 5.1 10/14/2012 Normal [facility] HEMATOLOGY Basophils # 0.1 K/CMM 0.0 - 0.2 10/14/2012 Normal [facility] HEMATOLOGY Segs 51.4 % 45.0 - 75.0 10/14/2012 Normal [facility] HEMATOLOGY Monocytes # 0.6 K/CMM 0.0 - 0.8 10/14/2012 Normal [facility] HEMATOLOGY Lymphocytes # 5.9 K/CMM 1.0 - 5.5 10/14/2012 [facility] HEMATOLOGY Eosinophils # 0.8 K/CMM 0.0 - 0.5 10/14/2012 [facility] HEMATOLOGY Basophils 0.5 % 0.0 - 1.0 10/14/2012 Normal [facility] HEMATOLOGY Lymphocytes 38.6 % 20.0 - 40.0 10/14/2012 Normal [facility] HEMATOLOGY Eosinophils 5.4 % 0.0 - 4.0 10/14/2012 [facility] HEMATOLOGY Monocytes 4.1 % 2.0 - 12.0 10/14/2012 Normal [facility] HEMATOLOGY Segs-Bands # 7.8 K/CMM 1.5 - 8.1 10/14/2012 Normal [facility] HEMATOLOGY RDW 14.6 % 11.5 - 14.5 10/14/2012 HI [facility] HEMATOLOGY Platelet 343 K/CMM 133 - 450 10/14/2012 Normal [facility] HEMATOLOGY MPV 8.1 fL 7.4 - 10.4 10/14/2012 Normal [facility] HEMATOLOGY Hgb 12.3 g/dL 12.0 - 16.0 10/14/2012 Normal [facility] HEMATOLOGY Hct 39.0 % 36.0 - 48.0 10/14/2012 Normal [facility] HEMATOLOGY MCV 90.7 fL 81.0 - 99.0 10/14/2012 Normal [facility] MCH 28.6 pg 27.0 - 31.0 10/14/2012 Normal [facility] HEMATOLOGY RBC 4.30 M/CMM 4.20 - 5.40 10/14/2012 Normal [facility] WBC 15.2 K/CMM 3.7 - 10.4 10/14/2012 HI [facility] HEMATOLOGY MCHC 31.6 g/dL 32.0 - 36.0 10/14/2012 LOW [facility] Microbiology Culture: Blood 10/14/2012 [facility] CHEMISTRY Lactic Acid Lvl 1.2 mMol/L 0.5 - 2.2 10/14/2012 Normal [facility] Microbiology Culture: Blood 10/14/2012 [facility] URINALYSIS UA Urobilinogen <=1.0 mg/dL
*NA*
(10/14/2012 15:18:00) <sup> </sup> 0.1 - 1.0 10/14/2012 NA [facility] URINALYSIS UA Color Ltyellow 10/14/2012 NA [facility] URINALYSIS UA Ketones Trace mg/dL *ABN* (10/14/2012 15:18:00) Negative 10/14/2012 ABN [facility] URINALYSIS UA Bili Negative *NA* (10/14/2012 15:18:00) Negative 10/14/2012 NA [facility] URINALYSIS UA RBC 1 /HPF 0 - 2 10/14/2012 Normal [facility] URINALYSIS UA WBC 1 /HPF 0 - 5 10/14/2012 Normal [facility] URINALYSIS UA Blood Small *ABN* (10/14/2012 15:18:00) Negative 10/14/2012 ABN [facility] URINALYSIS UA Nitrite Negative (10/14/2012 15:18:00) Negative 10/14/2012 Normal [facility] URINALYSIS UA Sq Epi Occasional /LPF *NA* (10/14/2012 15:18:00) Few 10/14/2012 NA [facility] URINALYSIS UA Leuk Est Negative (10/14/2012 15:18:00) Negative 10/14/2012 Normal [facility] URINALYSIS UA Turbidity Clear (10/14/2012 15:18:00) Clear 10/14/2012 Normal [facility] URINALYSIS UA Protein Negative mg/dL (10/14/2012 15:18:00) Negative 10/14/2012 Normal [facility] URINALYSIS UA Glucose Negative mg/dL *NA* (10/14/2012 15:18:00) Negative 10/14/2012 NA [facility] URINALYSIS UA Spec Grav 1.014 <=1.030 10/14/2012 Normal [facility] URINALYSIS UA pH 5.0 5.0 - 8.0 10/14/2012 Normal [facility] Microbiology Culture: Urine 10/14/2012 [facility] Chest 2 views Chest 2 views PA and lateral: The cardiomediastinal silhouette, pulmonary vasculature and lucrecia are within normal limits. Hazy opacities over the lungs described on the portable exam of 10/12/2012 are not seen today. The lungs and pleural spaces are otherwise clear. There are no significant osseous abnormalities. There is no other significant change. IMPRESSION: No acute radiographic abnormality in the chest. SL:13 10/13/2012 - - Read by: Jam Read Dictated Date/time: 10/13/12 08:27 Electronically Signed by: Jam Read MD 10/13/12 08:28 FINAL REPORT [facility] Microbiology Culture: Blood 10/13/2012 [facility] CHEMISTRY Lactic Acid Lvl 1.8 mMol/L 0.5 - 2.2 10/13/2012 Normal [facility] Microbiology Culture: Blood 10/13/2012 [facility] CHEMISTRY PIP/MAP Oli 10 10/13/2012 NA [facility] CHEMISTRY Peep Oli 5.0 10/13/2012 [facility] CHEMISTRY Mode Oli Bipap (10/12/2012 21:30:00) 10/13/2012 Normal [facility] CHEMISTRY Rate Oli 10 10/13/2012 [facility] CHEMISTRY FiO2 Oli 40.0 10/13/2012 [facility] CHEMISTRY Allens Oli N/A (10/12/2012 21:30:00) 10/13/2012 Normal [facility] CHEMISTRY pH Oli 7.27 7.28 - 7.42 10/13/2012 LOW [facility] CHEMISTRY pCO2 Oli 24 mm[Hg] 38 - 52 10/13/2012 LOW [facility] CHEMISTRY pO2 Oli 35 mm[Hg] 20 - 49 10/13/2012 Normal [facility] CHEMISTRY HCO3 Oli 11 mMol/L 22 - 26 10/13/2012 LOW [facility] CHEMISTRY BE Oli -14 mMol/L -2-2 - 2 10/13/2012 LOW [facility] CHEMISTRY O2 Sat Oli 57.3 % 40.0 - 70.0 10/13/2012 Normal [facility] CHEMISTRY Temp Oli 37.0 Vivien 10/13/2012 NA [facility] CHEMISTRY CK MB Index 1.0 0.0 - 2.5 10/13/2012 Normal [facility] CHEMISTRY Troponin-I null 0.00 - 0.40 10/13/2012 Normal [facility] CHEMISTRY Total CK 158 unit/L 12 - 191 10/13/2012 Normal [facility] CHEMISTRY CK MB 1.6 ng/mL 0.5 - 3.6 10/13/2012 Normal [facility] CHEMISTRY Potassium Lvl 4.0 meq/L 3.5 - 5.1 10/13/2012 Normal [facility] CHEMISTRY Chloride Lvl 108 meq/L 95 - 109 10/13/2012 Normal [facility] CHEMISTRY Sodium Lvl 146 meq/L 135 - 145 10/13/2012 HI [facility] CHEMISTRY eGFR 86 mL/min/1.73m2 10/13/2012 NA 1Result Comment: The eGFR is calculated using the CKD-EPI formula. In most young, healthy individuals the eGFR will be >90 mL/min/1.73m2. The eGFR declines with age. An eGFR of 60-89 may be normal in some populations, particularly the elderly, for whom the CKD-EPI formula has not been extensively validated. Use of the eGFR is not recommended in the following populations: Individuals with unstable creatinine concentrations, including patients and those with serious co-morbid conditions. Patients with extremes in muscle mass or diet. The data above are obtained from the National Kidney Disease Education Program (NKDEP) which additionally recommends that when the eGFR is used in patients with extremes of body mass index for purposes of drug dosing, the eGFR should be multiplied by the estimated BMI. [facility] CHEMISTRY Calcium Lvl 9.1 mg/dL 8.5 - 10.5 10/13/2012 Normal [facility] CHEMISTRY CO2 27 meq/L 24 - 32 10/13/2012 Normal [facility] CHEMISTRY AGAP 15.0 meq/L 10.0 - 20.0 10/13/2012 Normal [facility] CHEMISTRY Creatinine Lvl 0.9 mg/dL 0.5 - 1.4 10/13/2012 Normal [facility] CHEMISTRY Glucose Lvl 105 mg/dL 70 - 99 10/13/2012 [facility] 2Interpretive Data: Adult reference range values reflect the clinical guidelines of the [place] [employer]. [facility] CHEMISTRY BUN 11 mg/dL 7 - 22 10/13/2012 Normal [facility] HEMATOLOGY Basophils # 0.1 K/CMM 0.0 - 0.2 10/13/2012 Normal [facility] HEMATOLOGY Eosinophils # 1.4 K/CMM 0.0 - 0.5 10/13/2012 HI [facility] HEMATOLOGY Monocytes # 0.8 K/CMM 0.0 - 0.8 10/13/2012 Normal [facility] HEMATOLOGY Segs 45.5 % 45.0 - 75.0 10/13/2012 Normal [facility] HEMATOLOGY Lymphocytes # 5.0 K/CMM 1.0 - 5.5 10/13/2012 Normal [facility] HEMATOLOGY Segs-Bands # 6.1 K/CMM 1.5 - 8.1 10/13/2012 Normal [facility] Lymphocytes 37.2 % 20.0 - 40.0 10/13/2012 Normal [facility] HEMATOLOGY Monocytes 6.2 % 2.0 - 12.0 10/13/2012 Normal [facility] HEMATOLOGY Basophils 0.5 % 0.0 - 1.0 10/13/2012 Normal [facility] HEMATOLOGY Eosinophils 10.6 % 0.0 - 4.0 10/13/2012 HI [facility] HEMATOLOGY D-Dimer 0.26 ug/mL FEU 10/13/2012 NA 3Interpretive Data: In DIC, quantitative D- Dimer is generally greater than 0.66 ug/mL FEU. Values of quantitative D-Dimer less than 0.40 ug/mL FEU have been reported to be associated with a low probability of deep vein thrombosis/pulmonary embolism. This test alone should not be used to rule out DVT/PE. [facility] HEMATOLOGY Hct 38.1 % 36.0 - 48.0 10/13/2012 Normal [facility] HEMATOLOGY WBC 13.5 K/CMM 3.7 - 10.4 10/13/2012 HI [facility] HEMATOLOGY Hgb 12.1 g/dL 12.0 - 16.0 10/13/2012 Normal [facility] HEMATOLOGY RBC 4.23 M/CMM 4.20 - 5.40 10/13/2012 Normal [facility] HEMATOLOGY Platelet 342 K/CMM 133 - 450 10/13/2012 Normal [facility] MCH 28.5 pg 27.0 - 31.0 10/13/2012 Normal [facility] HEMATOLOGY RDW 14.5 % 11.5 - 14.5 10/13/2012 Normal [facility] HEMATOLOGY MCV 90.0 fL 81.0 - 99.0 10/13/2012 Normal [facility] HEMATOLOGY MCHC 31.6 g/dL 32.0 - 36.0 10/13/2012 LOW [facility] HEMATOLOGY MPV 8.3 fL 7.4 - 10.4 10/13/2012 Normal [facility] Chest 1view Chest 1view EXAMINATION: Chest 1view CLINICAL HISTORY: Dyspnea Since 04/08/2012, no important interval change has occurred. The lungs are clear of consolidation, pleural effusion, and pneumothorax. Mild hazy opacity in both lungs most likely presents underpenetration of the overlying soft tissues rather than pneumonitis or edema. A better penetrated chest radiograph would be confirmatory. The heart size remains normal. A minimal right pleural effusion or pleural thickening is questioned. SL:17 10/12/2012 - - Read by: Valentino Montes Dictated Date/time: 10/12/12 21:07 Electronically Signed by: Valentino Montes MD 10/12/12 21:08 FINAL REPORT [facility] CHEMISTRY CK MB Index 1.8 0.0 - 2.5 04/09/2012 Normal [facility] CHEMISTRY CK MB 2.3 ng/mL 0.5 - 3.6 04/09/2012 Normal [facility] CHEMISTRY Troponin-I null 0.00 - 0.40 04/09/2012 Normal [facility] CHEMISTRY Total CK 131 unit/L 12 - 191 04/09/2012 Normal [facility] Microbiology Culture: Blood 04/08/2012 [facility] CHEMISTRY Lactic Acid Lvl 1.7 mMol/L 0.5 - 2.2 04/08/2012 Normal [facility] Microbiology Culture: Blood 04/08/2012 [facility] CHEMISTRY Temp Art 37.0 Vivien 04/08/2012 NA [facility] CHEMISTRY Allens Art Positive (04/08/2012 15:35:00) 04/08/2012 Normal [facility] CHEMISTRY Site Art Right Ra (04/08/2012 15:35:00) 04/08/2012 Normal [facility] CHEMISTRY pO2 Art 66 mm[Hg] 80 - 100 04/08/2012 LOW [facility] CHEMISTRY pCO2 Art 49 mm[Hg] 35 - 45 04/08/2012 HI [facility] CHEMISTRY pH Art 7.35 7.35 - 7.45 04/08/2012 Normal [facility] CHEMISTRY Mode Art See Note 4 (04/08/2012 15:35:00) 04/08/2012 Normal 4Result Comment: mask [facility] CHEMISTRY FiO2 Art 40.0 04/08/2012 NA [facility] CHEMISTRY BE Art 1 mMol/L -2-2 - 2 04/08/2012 Normal [facility] CHEMISTRY O2 Sat Art 91.6 % 95.0 - 100.0 04/08/2012 LOW [facility] CHEMISTRY HCO3 Art 27 mMol/L 22 - 26 04/08/2012 HI [facility] CHEMISTRY BNP 11 pg/mL <=100 04/08/2012 Normal 3Interpretive Data: Elevated results are in line with increasing severity of congestive heart failure. Minor elevations between 100 and 300 may be seen with Myocardial Ischemia, Sodium retaining drugs, and compensated/treated heart failure. [facility] CHEMISTRY eGFR 76 mL/min/1.73m2 04/08/2012 NA 1Result Comment: The eGFR is calculated using the CKD-EPI formula. In most young, healthy individuals the eGFR will be >90 mL/min/1.73m2. The eGFR declines with age. An eGFR of 60-89 may be normal in some populations, particularly the elderly, for whom the CKD-EPI formula has not been extensively validated. Use of the eGFR is not recommended in the following populations: Individuals with unstable creatinine concentrations, including patients and those with serious co-morbid conditions. Patients with extremes in muscle mass or diet. The data above are obtained from the National Kidney Disease Education Program (NKDEP) which additionally recommends that when the eGFR is used in patients with extremes of body mass index for purposes of drug dosing, the eGFR should be multiplied by the estimated BMI. [facility] CHEMISTRY Potassium Lvl 3.6 meq/L 3.5 - 5.1 04/08/2012 Normal [facility] CHEMISTRY Chloride Lvl 110 meq/L 95 - 109 04/08/2012 HI [facility] CHEMISTRY Albumin Lvl 4.1 g/dL 3.5 - 5.0 04/08/2012 Normal [facility] CHEMISTRY Calcium Lvl 9.0 mg/dL 8.5 - 10.5 04/08/2012 Normal [facility] CHEMISTRY CO2 27 meq/L 24 - 32 04/08/2012 Normal [facility] CHEMISTRY B/C Ratio 11 6 - 25 04/08/2012 Normal [facility] CHEMISTRY AGAP 9.6 meq/L 10.0 - 20.0 04/08/2012 LOW [facility] CHEMISTRY BUN 11 mg/dL 7 - 22 04/08/2012 Normal [facility] CHEMISTRY Glucose Lvl 113 mg/dL 70 - 99 04/08/2012 HI 2Interpretive Data: Adult reference range values reflect the clinical guidelines of the [place] [employer]. [facility] CHEMISTRY Sodium Lvl 143 meq/L 135 - 145 04/08/2012 Normal [facility] CHEMISTRY Creatinine Lvl 1.0 mg/dL 0.5 - 1.4 04/08/2012 Normal [facility] CHEMISTRY Alk Phos 68 unit/L 39 - 136 04/08/2012 Normal [facility] CHEMISTRY ALT 16 unit/L 0 - 65 04/08/2012 Normal [facility] CHEMISTRY AST 14 unit/L 0 - 37 04/08/2012 Normal [facility] CHEMISTRY Bili Total 0.2 mg/dL 0.2 - 1.3 04/08/2012 Normal [facility] CHEMISTRY Total Protein 7.9 g/dL 6.4 - 8.4 04/08/2012 Normal [facility] CHEMISTRY A/G Ratio 1.1 0.7 - 1.6 04/08/2012 Normal [facility] CHEMISTRY Globulin 3.8 g/dL 2.0 - 4.0 04/08/2012 Normal [facility] CHEMISTRY Total CK 121 unit/L 12 - 191 04/08/2012 Normal [facility] CHEMISTRY Troponin-I null 0.00 - 0.40 04/08/2012 Normal [facility] CHEMISTRY CK MB 1.4 ng/mL 0.5 - 3.6 04/08/2012 Normal [facility] CHEMISTRY Magnesium Lvl 1.9 mg/dL 1.8 - 2.4 04/08/2012 Normal [facility] CHEMISTRY Phosphorus 4.7 mg/dL 2.5 - 4.5 04/08/2012 HI [facility] CHEMISTRY CK MB Index 1.2 0.0 - 2.5 04/08/2012 Normal [facility] HEMATOLOGY PT 12.4 s 12.0 - 14.7 04/08/2012 Normal [facility] PTT 28.0 s 22.9 - 35.8 04/08/2012 Normal 6Interpretive Data: Heparin Therapeutic Range: 57 - 92 Seconds [facility] INR 0.90 0.85 - 1.17 04/08/2012 Normal 5Interpretive Data: RECOMMENDED RANGES FOR PROTIME INR: 2.0-3.0 for most medical and surgical thromboembolic states. 2.5-3.5 for artificial heart valves and recurrent embolism. INR SHOULD BE USED ONLY FOR PATIENTS ON STABLE ANTICOAGULANT THERAPY. [facility] Hgb 12.7 g/dL 12.0 - 16.0 04/08/2012 Normal [facility] RBC 4.31 M/CMM 4.20 - 5.40 04/08/2012 Normal [facility] Hct 39.3 % 36.0 - 48.0 04/08/2012 Normal [facility] WBC 9.5 K/CMM 3.7 - 10.4 04/08/2012 Normal [facility] MCHC 32.3 g/dL 32.0 - 36.0 04/08/2012 Normal [facility] RDW 14.5 % 11.5 - 14.5 04/08/2012 Normal [facility] MCH 29.4 pg 27.0 - 31.0 04/08/2012 Normal [facility] Platelet 310 K/CMM 133 - 450 04/08/2012 Normal [facility] MCV 91.2 fL 81.0 - 99.0 04/08/2012 Normal [facility] MPV 7.9 fL 7.4 - 10.4 04/08/2012 Normal [facility] Monocytes 6.1 % 2.0 - 12.0 04/08/2012 Normal [facility] Lymphocytes # 3.1 K/CMM 1.0 - 5.5 04/08/2012 Normal [facility] HEMATOLOGY Eosinophils # 0.7 K/CMM 0.0 - 0.5 04/08/2012 HI [facility] HEMATOLOGY Monocytes # 0.6 K/CMM 0.0 - 0.8 04/08/2012 Normal [facility] HEMATOLOGY Basophils 0.5 % 0.0 - 1.0 04/08/2012 Normal [facility] HEMATOLOGY Eosinophils 7.6 % 0.0 - 4.0 04/08/2012 [facility] HEMATOLOGY Segs-Bands # 5.0 K/CMM 1.5 - 8.1 04/08/2012 Normal [facility] HEMATOLOGY Basophils # 0.0 K/CMM 0.0 - 0.2 04/08/2012 Normal [facility] HEMATOLOGY Segs 53.0 % 45.0 - 75.0 04/08/2012 Normal [facility] HEMATOLOGY Lymphocytes 32.8 % 20.0 - 40.0 04/08/2012 Normal [facility] URINALYSIS UA Urobilinogen <=1.0 mg/dL
*NA*
(04/08/2012 00:25:00) <sup> </sup> 0.1 - 1.0 04/08/2012 NA [facility] URINALYSIS UA Color Ltyellow 04/08/2012 NA [facility] URINALYSIS UA RBC null 0 - 2 04/08/2012 Normal [facility] URINALYSIS UA Leuk Est Negative (04/08/2012 00:25:00) Negative 04/08/2012 Normal [facility] URINALYSIS UA Nitrite Negative (04/08/2012 00:25:00) Negative 04/08/2012 Normal [facility] URINALYSIS UA WBC 1 /HPF 0 - 5 04/08/2012 Normal [facility] URINALYSIS UA Sq Epi Few /LPF *NA* (04/08/2012 00:25:00) Few 04/08/2012 [facility] URINALYSIS UA Blood Small *ABN* (04/08/2012 00:25:00) Negative 04/08/2012 ABN [facility] URINALYSIS UA Bili Negative *NA* (04/08/2012 00:25:00) Negative 04/08/2012 [facility] URINALYSIS UA Ketones Negative mg/dL *NA* (04/08/2012 00:25:00) Negative 04/08/2012 [facility] URINALYSIS UA Glucose Negative mg/dL *NA* (04/08/2012 00:25:00) Negative 04/08/2012 [facility] URINALYSIS UA Protein Negative mg/dL (04/08/2012 00:25:00) Negative 04/08/2012 Normal [facility] URINALYSIS UA Mucus Few /LPF *NA* (04/08/2012 00:25:00) None Seen 04/08/2012 NA [facility] URINALYSIS UA Spec Grav 1.017 <=1.030 04/08/2012 Normal [facility] URINALYSIS UA pH 5.0 5.0 - 8.0 04/08/2012 Normal [facility] URINALYSIS UA Turbidity Clear (04/08/2012 00:25:00) Clear 04/08/2012 Normal [facility] URINALYSIS UA Urobilinogen <=1.0 mg/dL
*NA*
(04/08/2012 00:25:00) <sup> </sup> 0.1 - 1.0 04/08/2012 NA [facility] URINALYSIS UA Color Ltyellow 04/08/2012 NA [facility] URINALYSIS UA Bili Negative *NA* (04/08/2012 00:25:00) Negative 04/08/2012 [facility] URINALYSIS UA Sq Epi Few /LPF *NA* (04/08/2012 00:25:00) Few 04/08/2012 NA [facility] URINALYSIS UA Mucus Few /LPF *NA* (04/08/2012 00:25:00) None Seen 04/08/2012 NA [facility] URINALYSIS UA Nitrite Negative (04/08/2012 00:25:00) Negative 04/08/2012 Normal [facility] URINALYSIS UA Glucose Negative mg/dL *NA* (04/08/2012 00:25:00) Negative 04/08/2012 [facility] URINALYSIS UA Blood Small *ABN* (04/08/2012 00:25:00) Negative 04/08/2012 ABN [facility] URINALYSIS UA Ketones Negative mg/dL *NA* (04/08/2012 00:25:00) Negative 04/08/2012 NA [facility] URINALYSIS UA WBC 1 /HPF 0 - 5 04/08/2012 Normal [facility] URINALYSIS UA Leuk Est Negative (04/08/2012 00:25:00) Negative 04/08/2012 Normal [facility] URINALYSIS UA RBC null 0 - 2 04/08/2012 Normal [facility] URINALYSIS UA pH 5.0 5.0 - 8.0 04/08/2012 Normal [facility] URINALYSIS UA Protein Negative mg/dL (04/08/2012 00:25:00) Negative 04/08/2012 Normal [facility] URINALYSIS UA Turbidity Clear (04/08/2012 00:25:00) Clear 04/08/2012 Normal [facility] URINALYSIS UA Spec Grav 1.017 <=1.030 04/08/2012 Normal [facility] Microbiology Culture: Blood 03/03/2012 [facility] Microbiology Culture: Blood 03/03/2012 [facility] CHEMISTRY Lactic Acid Lvl 0.6 mMol/L 0.5 - 2.2 03/03/2012 Normal [facility] CHEMISTRY AGAP 10.8 meq/L 10.0 - 20.0 03/03/2012 Normal [facility] CHEMISTRY eGFR 99 mL/min/1.73m2 03/03/2012 NA 1Result Comment: The eGFR is calculated using the CKD-EPI formula. In most young, healthy individuals the eGFR will be >90 mL/min/1.73m2. The eGFR declines with age. An eGFR of 60-89 may be normal in some populations, particularly the elderly, for whom the CKD-EPI formula has not been extensively validated. Use of the eGFR is not recommended in the following populations: Individuals with unstable creatinine concentrations, including patients and those with serious co-morbid conditions. Patients with extremes in muscle mass or diet. The data above are obtained from the National Kidney Disease Education Program (NKDEP) which additionally recommends that when the eGFR is used in patients with extremes of body mass index for purposes of drug dosing, the eGFR should be multiplied by the estimated BMI. [facility] CHEMISTRY Calcium Lvl 8.9 mg/dL 8.5 - 10.5 03/03/2012 Normal [facility] CHEMISTRY Chloride Lvl 108 meq/L 95 - 109 03/03/2012 Normal [facility] CHEMISTRY Sodium Lvl 144 meq/L 135 - 145 03/03/2012 Normal [facility] CHEMISTRY CO2 29 meq/L 24 - 32 03/03/2012 Normal [facility] CHEMISTRY Potassium Lvl 3.8 meq/L 3.5 - 5.1 03/03/2012 Normal [facility] CHEMISTRY BUN 10 mg/dL 7 - 22 03/03/2012 Normal [facility] CHEMISTRY Creatinine Lvl 0.8 mg/dL 0.5 - 1.4 03/03/2012 Normal [facility] CHEMISTRY Glucose Lvl 96 mg/dL 70 - 99 03/03/2012 Normal 2Interpretive Data: Adult reference range values reflect the clinical guidelines of the [place] [employer]. [facility] HEMATOLOGY Basophils # 0.1 K/CMM 0.0 - 0.2 03/03/2012 Normal [facility] HEMATOLOGY Eosinophils # 0.9 K/CMM 0.0 - 0.5 03/03/2012 HI [facility] HEMATOLOGY Lymphocytes # 5.5 K/CMM 1.0 - 5.5 03/03/2012 Normal [facility] HEMATOLOGY Monocytes # 0.7 K/CMM 0.0 - 0.8 03/03/2012 Normal [facility] HEMATOLOGY Segs-Bands # 4.7 K/CMM 1.5 - 8.1 03/03/2012 Normal [facility] HEMATOLOGY Basophils 0.4 % 0.0 - 1.0 03/03/2012 Normal [facility] HEMATOLOGY Lymphocytes 46.5 % 20.0 - 40.0 03/03/2012 [facility] HEMATOLOGY Eosinophils 7.2 % 0.0 - 4.0 03/03/2012 [facility] HEMATOLOGY Monocytes 6.2 % 2.0 - 12.0 03/03/2012 Normal [facility] HEMATOLOGY Segs 39.7 % 45.0 - 75.0 03/03/2012 LOW [facility] HEMATOLOGY MCHC 32.7 g/dL 32.0 - 36.0 03/03/2012 Normal [facility] HEMATOLOGY MCH 29.8 pg 27.0 - 31.0 03/03/2012 Normal [facility] HEMATOLOGY Platelet 331 K/CMM 133 - 450 03/03/2012 Normal [facility] HEMATOLOGY RDW 14.8 % 11.5 - 14.5 03/03/2012 [facility] HEMATOLOGY Hgb 13.2 g/dL 12.0 - 16.0 03/03/2012 Normal [facility] HEMATOLOGY MCV 91.1 fL 81.0 - 99.0 03/03/2012 Normal [facility] HEMATOLOGY Hct 40.3 % 36.0 - 48.0 03/03/2012 Normal [facility] HEMATOLOGY MPV 8.2 fL 7.4 - 10.4 03/03/2012 Normal [facility] HEMATOLOGY WBC 11.9 K/CMM 3.7 - 10.4 03/03/2012 [facility] HEMATOLOGY RBC 4.43 M/CMM 4.20 - 5.40 03/03/2012 Normal [facility] CHEMISTRY CK MB Index 1.3 0.0 - 2.5 01/24/2012 Normal [facility] CHEMISTRY Troponin-I null 0.00 - 0.40 01/24/2012 Normal [facility] CHEMISTRY CK MB 2.7 ng/mL 0.5 - 3.6 01/24/2012 Normal [facility] CHEMISTRY Total CK 211 unit/L 12 - 191 01/24/2012 [facility] CHEMISTRY Albumin Lvl 4.4 g/dL 3.5 - 5.0 01/24/2012 Normal [facility] CHEMISTRY AGAP 11.6 meq/L 10.0 - 20.0 01/24/2012 Normal [facility] CHEMISTRY B/C Ratio 7 6 - 25 01/24/2012 Normal [facility] CHEMISTRY eGFR 86 mL/min/1.73m2 01/24/2012 NA 1Result Comment: The eGFR is calculated using the CKD-EPI formula. In most young, healthy individuals the eGFR will be >90 mL/min/1.73m2. The eGFR declines with age. An eGFR of 60-89 may be normal in some populations, particularly the elderly, for whom the CKD-EPI formula has not been extensively validated. Use of the eGFR is not recommended in the following populations: Individuals with unstable creatinine concentrations, including patients and those with serious co-morbid conditions. Patients with extremes in muscle mass or diet. The data above are obtained from the National Kidney Disease Education Program (NKDEP) which additionally recommends that when the eGFR is used in patients with extremes of body mass index for purposes of drug dosing, the eGFR should be multiplied by the estimated BMI. [facility] CHEMISTRY Creatinine Lvl 0.9 mg/dL 0.5 - 1.4 01/24/2012 Normal [facility] CHEMISTRY Potassium Lvl 3.6 meq/L 3.5 - 5.1 01/24/2012 Normal [facility] CHEMISTRY Sodium Lvl 141 meq/L 135 - 145 01/24/2012 Normal [facility] CHEMISTRY Calcium Lvl 9.8 mg/dL 8.5 - 10.5 01/24/2012 Normal [facility] CHEMISTRY CO2 28 meq/L 24 - 32 01/24/2012 Normal [facility] CHEMISTRY Chloride Lvl 105 meq/L 95 - 109 01/24/2012 Normal [facility] CHEMISTRY BUN 6 mg/dL 7 - 22 01/24/2012 LOW [facility] CHEMISTRY Glucose Lvl 93 mg/dL 70 - 99 01/24/2012 Normal 2Interpretive Data: Adult reference range values reflect the clinical guidelines of the [place] [employer]. [facility] CHEMISTRY A/G Ratio 1.0 0.7 - 1.6 01/24/2012 Normal [facility] CHEMISTRY Globulin 4.2 g/dL 2.0 - 4.0 01/24/2012 HI [facility] CHEMISTRY AST 25 unit/L 0 - 37 01/24/2012 Normal [facility] CHEMISTRY Bili Total 0.4 mg/dL 0.2 - 1.3 01/24/2012 Normal [facility] CHEMISTRY ALT 17 unit/L 0 - 65 01/24/2012 Normal [facility] CHEMISTRY Alk Phos 66 unit/L 39 - 136 01/24/2012 Normal [facility] CHEMISTRY Total Protein 8.6 g/dL 6.4 - 8.4 01/24/2012 HI [facility] HEMATOLOGY Lymphocytes 34.0 % 20.0 - 40.0 01/24/2012 Normal [facility] HEMATOLOGY Segs 51.2 % 45.0 - 75.0 01/24/2012 Normal [facility] HEMATOLOGY Eosinophils 5.1 % 0.0 - 4.0 01/24/2012 HI [facility] HEMATOLOGY Basophils 0.7 % 0.0 - 1.0 01/24/2012 Normal [facility] HEMATOLOGY Segs-Bands # 3.6 K/CMM 1.5 - 8.1 01/24/2012 Normal [facility] HEMATOLOGY Lymphocytes # 2.4 K/CMM 1.0 - 5.5 01/24/2012 Normal [facility] HEMATOLOGY Monocytes 9.0 % 2.0 - 12.0 01/24/2012 Normal [facility] HEMATOLOGY Basophils # 0.0 K/CMM 0.0 - 0.2 01/24/2012 Normal [facility] HEMATOLOGY Eosinophils # 0.4 K/CMM 0.0 - 0.5 01/24/2012 Normal [facility] HEMATOLOGY Monocytes # 0.6 K/CMM 0.0 - 0.8 01/24/2012 Normal [facility] HEMATOLOGY PTT 26.5 s 22.9 - 35.8 01/24/2012 Normal 4Interpretive Data: Heparin Therapeutic Range: 57 - 92 Seconds [facility] HEMATOLOGY PT 12.8 s 12.0 - 14.7 01/24/2012 Normal [facility] HEMATOLOGY INR 0.94 0.85 - 1.17 01/24/2012 Normal 3Interpretive Data: RECOMMENDED RANGES FOR PROTIME INR: 2.0-3.0 for most medical and surgical thromboembolic states. 2.5-3.5 for artificial heart valves and recurrent embolism. INR SHOULD BE USED ONLY FOR PATIENTS ON STABLE ANTICOAGULANT THERAPY. [facility] HEMATOLOGY WBC 7.1 K/CMM 3.7 - 10.4 01/24/2012 Normal [facility] HEMATOLOGY Hgb 12.8 g/dL 12.0 - 16.0 01/24/2012 Normal [facility] HEMATOLOGY Hct 39.1 % 36.0 - 48.0 01/24/2012 Normal [facility] HEMATOLOGY MCV 89.6 fL 81.0 - 99.0 01/24/2012 Normal [facility] HEMATOLOGY MCH 29.3 pg 27.0 - 31.0 01/24/2012 Normal [facility] HEMATOLOGY MCHC 32.7 g/dL 32.0 - 36.0 01/24/2012 Normal [facility] HEMATOLOGY Platelet 283 K/CMM 133 - 450 01/24/2012 Normal [facility] HEMATOLOGY RDW 14.7 % 11.5 - 14.5 01/24/2012 HI [facility] HEMATOLOGY MPV 7.8 fL 7.4 - 10.4 01/24/2012 Normal [facility] HEMATOLOGY RBC 4.36 M/CMM 4.20 - 5.40 01/24/2012 Normal [facility] Vital Signs Vital Sign Value Date Comments Source Respitory Rate 18 05/25/2016 [facility] Temperature Oral (F) 98.2 F 05/25/2016 [facility] Heart Rate 79 05/25/2016 [facility] Systolic (mm Hg) 129 05/25/2016 [facility] Diastolic (mm Hg) 78 05/25/2016 [facility] BMI Calculated 27.67 05/25/2016 [facility] Weight 85 05/25/2016 [facility] Height 175.26 cm 05/25/2016 [facility] Temperature Oral (F) 98.1 F 05/25/2016 [facility] Respitory Rate 17 05/25/2016 [facility] Systolic (mm Hg) 114 05/25/2016 [facility] Diastolic (mm Hg) 69 05/25/2016 [facility] Systolic (mm Hg) 131 05/25/2016 [facility] Diastolic (mm Hg) 76 05/25/2016 [facility] Respitory Rate 16 05/25/2016 [facility] Temperature Oral (F) 98.1 F 05/25/2016 [facility] Height 175.26 cm 05/25/2016 [facility] Weight 89.545 05/25/2016 [facility] BMI Calculated 29.15 05/25/2016 [facility] Heart Rate 114 05/25/2016 [facility] Respitory Rate 18 05/24/2016 [facility] Heart Rate 95 05/24/2016 [facility] Systolic (mm Hg) 121 05/24/2016 [facility] Diastolic (mm Hg) 81 05/24/2016 [facility] Temperature Oral (F) 98.4 F 05/24/2016 [facility] BMI Calculated 27.67 05/24/2016 [facility] Height 175.26 cm 05/24/2016 [facility] Weight 85 05/24/2016 [facility] Respitory Rate 20 06/14/2015 [facility] Systolic (mm Hg) 149 06/14/2015 [facility] Diastolic (mm Hg) 82 06/14/2015 [facility] Temperature Oral (F) 98.4 F 06/14/2015 [facility] Heart Rate 77 06/14/2015 [facility] Diastolic (mm Hg) 81 06/14/2015 [facility] Respitory Rate 17 06/14/2015 [facility] Systolic (mm Hg) 119 06/14/2015 [facility] Heart Rate 79 06/14/2015 [facility] Temperature Oral (F) 98.2 F 06/14/2015 [facility] Weight 82.273 06/14/2015 [facility] BMI Calculated 26.79 06/14/2015 [facility] Height 175.26 cm 06/14/2015 [facility] Temperature Oral (F) 97.6 F 06/14/2015 [facility] Systolic (mm Hg) 136 06/14/2015 [facility] Diastolic (mm Hg) 87 06/14/2015 [facility] Respitory Rate 24 06/14/2015 [facility] Heart Rate 92 06/14/2015 [facility] Respitory Rate 14 02/21/2015 [facility] Systolic (mm Hg) 139 02/21/2015 [facility] Diastolic (mm Hg) 80 02/21/2015 [facility] Temperature Oral (F) 98.4 F 02/21/2015 [facility] Systolic (mm Hg) 120 02/21/2015 [facility] Diastolic (mm Hg) 83 02/21/2015 [facility] Respitory Rate 17 02/21/2015 [facility] Respitory Rate 18 02/21/2015 [facility] Systolic (mm Hg) 144 02/20/2015 [facility] Diastolic (mm Hg) 93 02/20/2015 [facility] Weight 81.818 02/20/2015 [facility] Height 175.26 cm 02/20/2015 [facility] BMI Calculated 26.64 02/20/2015 [facility] Heart Rate 106 02/20/2015 [facility] Systolic (mm Hg) 145 01/23/2015 [facility] Diastolic (mm Hg) 86 01/23/2015 [facility] Respitory Rate 18 01/23/2015 [facility] Heart Rate 89 01/23/2015 [facility] Temperature Oral (F) 97.6 F 01/23/2015 [facility] Heart Rate 85 01/23/2015 [facility] Respitory Rate 18 01/23/2015 [facility] Systolic (mm Hg) 147 01/23/2015 [facility] Diastolic (mm Hg) 79 01/23/2015 [facility] Respitory Rate 19 01/23/2015 [facility] Weight 81.818 01/23/2015 [facility] BMI Calculated 26.64 01/23/2015 [facility] Temperature Oral (F) 97.6 F 01/23/2015 [facility] Height 175.26 cm 01/23/2015 [facility] Systolic (mm Hg) 128 01/23/2015 [facility] Diastolic (mm Hg) 86 01/23/2015 [facility] Heart Rate 99 01/23/2015 [facility] Systolic (mm Hg) 143 01/03/2015 [facility] Diastolic (mm Hg) 82 01/03/2015 [facility] Temperature Oral (F) 98.1 F 01/03/2015 [facility] Respitory Rate 18 01/03/2015 [facility] Respitory Rate 18 01/03/2015 [facility] Respitory Rate 15 01/03/2015 [facility] Temperature Oral (F) 98 F 01/03/2015 [facility] Systolic (mm Hg) 134 01/03/2015 [facility] Diastolic (mm Hg) 78 01/03/2015 [facility] Height 175.26 cm 01/03/2015 [facility] BMI Calculated 27.38 01/03/2015 [facility] Weight 84.091 01/03/2015 [facility] Heart Rate 95 01/03/2015 [facility] Systolic (mm Hg) 149 01/03/2015 [facility] Diastolic (mm Hg) 104 01/03/2015 [facility] Temperature Oral (F) 98.1 F 01/03/2015 [facility] Systolic (mm Hg) 139 10/13/2014 [facility] Diastolic (mm Hg) 75 10/13/2014 [facility] Respitory Rate 18 10/13/2014 [facility] Heart Rate 77 10/13/2014 [facility] Temperature Oral (F) 98.6 F 10/13/2014 [facility] Respitory Rate 16 10/13/2014 [facility] Systolic (mm Hg) 137 10/13/2014 [facility] Diastolic (mm Hg) 77 10/13/2014 [facility] Respitory Rate 20 10/13/2014 [facility] Heart Rate 84 10/13/2014 [facility] Temperature Oral (F) 98.6 F 10/13/2014 [facility] Weight 72.727 10/13/2014 [facility] Heart Rate 98 10/13/2014 [facility] Systolic (mm Hg) 131 10/13/2014 [facility] Diastolic (mm Hg) 77 10/13/2014 [facility] Respitory Rate 30 12/02/2013 [facility] Systolic (mm Hg) 142 12/02/2013 [facility] Diastolic (mm Hg) 54 12/02/2013 [facility] Heart Rate 112 12/02/2013 [facility] Respitory Rate 20 12/02/2013 [facility] Weight 77.273 12/02/2013 [facility] Diastolic (mm Hg) 89 12/02/2013 [facility] Respitory Rate 32 12/02/2013 [facility] Heart Rate 121 12/02/2013 [facility] Temperature Oral (F) 98.0 F 12/02/2013 [facility] Systolic (mm Hg) 143 12/02/2013 [facility] Diastolic (mm Hg) 89 11/02/2013 [facility] Systolic (mm Hg) 146 11/02/2013 [facility] Respitory Rate 19 11/02/2013 [facility] Heart Rate 89 11/02/2013 [facility] Weight 72.727 11/02/2013 [facility] Respitory Rate 26 11/02/2013 [facility] Heart Rate 113 11/02/2013 [facility] Temperature Oral (F) 98.1 F 11/02/2013 [facility] Diastolic (mm Hg) 98 11/02/2013 [facility] Systolic (mm Hg) 159 11/02/2013 [facility] Diastolic (mm Hg) 83 11/02/2013 [facility] Systolic (mm Hg) 142 11/02/2013 [facility] Respitory Rate 19 11/02/2013 [facility] Heart Rate 78 11/02/2013 [facility] BMI Calculated 27.97 11/01/2013 [facility] Weight 85.909 11/01/2013 [facility] Height 175.26 cm 11/01/2013 [facility] Temperature Oral (F) 98.3 F 11/01/2013 [facility] Diastolic (mm Hg) 96 11/01/2013 [facility] Respitory Rate 22 11/01/2013 [facility] Systolic (mm Hg) 176 11/01/2013 [facility] Heart Rate 111 11/01/2013 [facility] Respitory Rate 20 10/17/2012 [facility] Heart Rate 75 10/17/2012 [facility] Diastolic (mm Hg) 76 10/17/2012 [facility] Systolic (mm Hg) 124 10/17/2012 [facility] Temperature Oral (F) 98.7 F 10/17/2012 [facility] Systolic (mm Hg) 110 10/17/2012 [facility] Diastolic (mm Hg) 72 10/17/2012 [facility] Respitory Rate 20 10/17/2012 [facility] Heart Rate 80 10/17/2012 [facility] Temperature Oral (F) 98.5 F 10/17/2012 [facility] Respitory Rate 85 10/17/2012 [facility] Temperature Oral (F) 98.4 F 10/17/2012 [facility] Heart Rate 64 10/17/2012 [facility] Systolic (mm Hg) 117 10/17/2012 [facility] Diastolic (mm Hg) 75 10/17/2012 [facility] Weight 81.534 10/14/2012 [facility] Weight 70.455 10/14/2012 [facility] Height 175.26 cm 10/14/2012 [facility] Temperature Oral (F) 98.0 F 10/13/2012 [facility] Diastolic (mm Hg) 77 10/13/2012 [facility] Heart Rate 86 10/13/2012 [facility] Systolic (mm Hg) 130 10/13/2012 [facility] Respitory Rate 18 10/13/2012 [facility] Respitory Rate 12 10/13/2012 [facility] Temperature Oral (F) 98.3 F 10/13/2012 [facility] Diastolic (mm Hg) 75 10/13/2012 [facility] Systolic (mm Hg) 122 10/13/2012 [facility] Respitory Rate 18 10/13/2012 [facility] Heart Rate 78 10/13/2012 [facility] Diastolic (mm Hg) 56 10/13/2012 [facility] Systolic (mm Hg) 108 10/13/2012 [facility] Temperature Oral (F) 98.3 F 10/13/2012 [facility] Heart Rate 88 10/13/2012 [facility] Weight 81.477 10/13/2012 [facility] Weight 79.205 10/13/2012 [facility] Height 175.26 cm 10/13/2012 [facility] Weight 81.477 10/13/2012 [facility] Weight 79.545 07/15/2012 [facility] Height 175.26 cm 07/15/2012 [facility] Weight 75 04/29/2012 [facility] Systolic (mm Hg) 153 04/10/2012 [facility] Temperature Oral (F) 98.3 F 04/10/2012 [facility] Respitory Rate 20 04/10/2012 [facility] Heart Rate 74 04/10/2012 [facility] Diastolic (mm Hg) 92 04/10/2012 [facility] Respitory Rate 14 04/10/2012 [facility] Heart Rate 60 04/10/2012 [facility] Diastolic (mm Hg) 84 04/10/2012 [facility] Systolic (mm Hg) 132 04/10/2012 [facility] Systolic (mm Hg) 151 04/10/2012 [facility] Diastolic (mm Hg) 99 04/10/2012 [facility] Respitory Rate 18 04/10/2012 [facility] Temperature Oral (F) 98.2 F 04/10/2012 [facility] Heart Rate 67 04/10/2012 [facility] Temperature Oral (F) 97.8 F 04/10/2012 [facility] Weight 77.983 04/09/2012 [facility] Height 175.26 cm 04/09/2012 [facility] Weight 72.727 04/08/2012 [facility] Height 177.80 cm 04/08/2012 [facility] Weight 72.727 03/03/2012 [facility] Weight 70.455 01/24/2012 [facility] Height 175.26 cm 01/24/2012 [facility] Height 175.26 cm 12/10/2011 [facility] Weight 68.182 12/10/2011 [facility] Weight 72.727 10/07/2011 [facility] Height 175.26 cm 10/07/2011 [facility] Weight 59.091 09/29/2011 [facility] Height 175.26 cm 09/29/2011 [facility] Weight 72.727 09/04/2011 [facility] Height 175.26 cm 09/04/2011 [facility] Encounters Location Location Details Encounter Type Encounter Number Reason For Visit Attending Provider ADM Date DC Date Status Source [facility] [id number] YOVANI GARCIA 09/04/2011 09/04/2011 Active [facility] [id number] JIM NOVAK 09/29/2011 09/29/2011 Active [facility] [id number] YESICA BAHAI 10/07/2011 10/07/2011 Active [facility] [id number] PHYLLIS JOHNSON 12/09/2011 12/10/2011 Active [facility] [id number] IMANI GRISSOM 01/24/2012 Active [facility] [id number] DEBORA ANGULO 03/03/2012 03/03/2012 Active [facility] [id number] COPD EXCERBATION,HYPOXIA MICHELINE TEQWIMUAH 04/08/2012 04/10/2012 Active [facility] [id number] DIFFICULTY BREATHING JIM NOVAK 04/29/2012 04/29/2012 Active [facility] [id number] DEBORA ISSA 07/15/2012 07/15/2012 Active [facility] [id number] DEAN STANLEY 10/12/2012 10/13/2012 Active [facility]patient [id number] DEAN STANLEY 10/14/2012 10/17/2012 Active [facility] [id number] Jim Mcnamaraen 11/01/2013 11/02/2013 [facility] [id number] Jim Bartonjorjeen 11/02/2013 11/02/2013 [facility] [id number] Austen Jimenezamneh 12/02/2013 12/02/2013 [facility] [id number] Paty Morrell 10/13/2014 10/13/2014 [facility] [id number] Sampat Antonio 01/03/2015 01/03/2015 [facility] [id number] Samar Antonio 01/23/2015 01/23/2015 [facility] [id number] Kaushik Sanchez 02/20/2015 02/21/2015 [facility] [id number] Anthony Gordon 06/14/2015 06/14/2015 [facility] Emergency [id number] Abelardo Antonio 05/24/2016 05/24/2016 [facility] Observation [id number] Briana Landeros 05/25/2016 05/25/2016 [facility] Procedures Procedure Code Date Perfomer Comments Source D&C - Dilatation and curettage [id number] [facility] Tubal ligation [id number] [facility] D&C - Dilatation and curettage [id number] [facility] Tubal ligation [id number] [facility]
--- OUTSIDE RECORDS SUMMARY | 2018-07-13 09:12 | XMS REPORT | Summary of Care ---
Author Organization Unknown Address Unknown Phone Unavailable Encounter LADY Lomax(FREDERIC) [id number] Date(s): 11/01/13 - 11/01/13 [facility] [address] [address] Discharge Diagnosis: COPD exacerbation Discharge Disposition: Home Physician Attending: Jim Duarte MD Reason for Visit SOB Vital Signs Most recent to 1 2 oldest [Reference Range]: Temperature Oral 98.1 DegF [96.4-99.1 DegF] (11/01/13 10:49 PM) Systolic Blood 146 mmHg 159 mmHg Pressure [90-140 *HI* *HI* mmHg] (11/02/13 12:32 AM) (11/01/13 10:49 PM) Diastolic Blood 89 mmHg 98 mmHg Pressure [60-90 (11/02/13 12:32 AM) *HI* mmHg] (11/01/13 10:49 PM) Respiratory Rate 19 BRMIN 26 BRMIN [14-20 BRMIN] (11/02/13 12:32 AM) *HI* (11/01/13 10:49 PM) Peripheral Pulse 89 bpm 113 bpm Rate [60-100 bpm] (11/02/13 12:32 AM) *HI* (11/01/13 10:49 PM) Weight 72.727 kg (11/01/13 10:49 PM) Problem List Condition Effective Dates Status Health Status Informant Asthma(Confirmed) Active COPD(Confirmed) Active High blood Active pressure(Confirmed) Allergies, Adverse Reactions, Alerts Substance Reaction Severity Status Rocephin Active Medications Advair Diskus 100 mcg-50 mcg inhalation powder 1 puff, INHALATION, BID, # 1 ea, 0 Refill(s) Start Date: 11/01/13 Status: Ordered albuterol 90 mcg/inh inhalation aerosol 1 puff, INHALATION, QID, wheezing, # 1 ea, 0 Refill(s) Start Date: 11/01/13 Status: Ordered DuoNeb inhalation solution 3 ml, Route: INHALATION, Drug Form: SOLN, Dosing Weight 72.727, kg, PRN, PRN Res piratory Protocol, Start date: 11/01/13 23:14:00, Duration: 1 doses or times, St op date: 11/01/13 23:14:00 Notes: (Same as: Duoneb) Start Date: 11/01/13 Stop Date: 11/01/13 Status: Completed predniSONE 60 mg, Route: PO, Drug form: TAB, ONCE, Dosing Weight 72.727, kg, Priority: STAT , Start date: 11/01/13 23:14:00, Stop date: 11/01/13 23:14:00 Start Date: 11/01/13 Stop Date: 11/01/13 Status: Completed predniSONE 20 mg oral tablet 20 mg=1 tab, PO, Daily, # 7 tab, 0 Refill(s) Start Date: 11/01/13 Stop Date: 11/08/13 Status: Ordered Medications Administered During Your Visit No data available for this section Immunizations Vaccine Date Refusal Reason influenza virus vaccine, inactivated 04/09/12 pneumococcal 23-valent vaccine 10/13/12 Social History Social History Type Response Smoking Status Current every day smoker, Type: Cigarettes, Exposure to Tobacco Smoke None, Cigarette Smoking Last 365 Days No, Reg Smoking Cessation Counseling No
--- OUTSIDE RECORDS SUMMARY | 2018-07-13 09:12 | XMS REPORT | CCD ---
Author Author Auto Generated Organization [facility] Address Unknown Phone Unavailable Care Team Providers Care Training Coordinator Name Role Phone Jim Duarte CP Allergies, Adverse Reactions, Alerts Substance Reaction Status NKDA Rocephin Active Problem List Condition Effective Dates Status Asthma Active COPD Active High blood pressure Active Medications Medication Instructions Start Date End Date Status DuoNeb inhalation 3 mL, Route: INHALATION, Drug Form: 04/29/2012 04/29/2012 Completed solution SOLN, Dosing Weight 75, kg, ONCE, Start date: 04/29/12 16:08:00, Stop date: 04/29/12 16:08:00 Periactin 4 mg oral 4 mg, 1 tab, PO, TID, 60 tab, 04/29/2012 Ordered tablet Substitution Allowed, TAB predniSONE 20 mg 40 mg po [id number] mg [id number], 04/29/2012 Ordered oral tablet PO, Daily, 12 tab, Substitution Allowed DuoNeb inhalation 3 ml, Route: INHALATION, Drug Form: 04/29/2012 04/29/2012 Completed solution SOLN, Dosing Weight 75, kg, ONCE, PRN Respiratory Protocol, Start date: 04/29/12 17:14:00 DuoNeb inhalation 3 ml, Route: INHALATION, Drug Form: 04/29/2012 04/29/2012 Completed solution SOLN, Dosing Weight 75, kg, ONCE, PRN Respiratory Protocol, Start date: 04/29/12 17:14:00 DuoNeb inhalation 3 ml, Route: INHALATION, Drug Form: 04/29/2012 04/29/2012 Completed solution SOLN, Dosing Weight 75, kg, ONCE, PRN Respiratory Protocol, Start date: 04/29/12 17:14:00 DuoNeb inhalation 3 mL, INHALATION, Q6H, 1 box, 2, 2, 04/29/2012 Ordered solution Substitution Allowed, Maintenance influenza virus 0.5 ml, Route: IM, Drug Form: INJ, 04/09/2012 04/09/2012 Completed vaccine, inactivated Start date: 04/09/12 9:00:00, Stop date: 04/09/12 9:00:00 predniSONE 60 mg, 3 tab, Route: PO, Drug form: 04/29/2012 04/29/2012 Completed TAB, ONCE, Dosing Weight 75, kg, Priority: STAT, Start date: 04/29/12 16:16:00, Stop date: 04/29/12 16:16:00 DuoNeb inhalation 3 mL, Route: INHALATION, Drug Form: 04/29/2012 04/29/2012 Completed solution SOLN, Dosing Weight 75, kg, ONCE, Start date: 04/29/12 16:09:00, Stop date: 04/29/12 16:09:00 Immunizations Vaccine Date Status influenza virus vaccine, inactivated 04/09/2012 Auth (Verified) Vital Signs Most recent to oldest [Reference Range]: 1 Weight 75 kg (04/29/2012 15:30:00)
--- OUTSIDE RECORDS SUMMARY | 2018-07-13 09:12 | XMS REPORT | CCD ---
Author Author Auto Generated Organization [facility] Address Unknown Phone Unavailable Care Team Providers Care Crew Leader/Control Room Operator Name Role Phone Ponce Angel CP Allergies, Adverse Reactions, Alerts Substance Reaction Status Rocephin Active Problem List Condition Effective Dates Status Asthma Active COPD Active High blood pressure Active Medications Medication Instructions Start Date End Date Status albuterol-ipratropiu 3 mL, Route: INHALATION, Drug Form: 10/15/2012 10/17/2012 Discontinued m 2.5-0.5 mg SOLN, Dosing Weight 70.455, kg, inhalation solution RQID, Start date: 10/15/12 7:00:00, Duration: 30 day, Stop date: 11/13/12 19:00:00 influenza virus 0.5 ml, Route: IM, Drug Form: INJ, 04/09/2012 04/09/2012 Completed vaccine, inactivated Start date: 04/09/12 9:00:00, Stop date: 04/09/12 9:00:00 clindamycin 600 mg, Route: IVPB, ONCE, Dosing 10/14/2012 10/14/2012 Completed Weight 70.455, kg, Priority: STAT, Start date: 10/14/12 15:21:00, Stop date: 10/14/12 15:21:00 Symbicort 80/4.5 2 inhalation, Route: INHALATION, 10/15/2012 10/17/2012 Discontinued inhalation aerosol Drug Form: AERO/A, Dosing Weight with adapter 81.534, kg, BID, Start date: 10/15/12 17:00:00, Duration: 30 day, Stop date: 11/14/12 9:00:00 ibuprofen 600 mg 600 mg, 1 tab, PO, Q6H, PRN, Take 10/17/2012 10/25/2012 Ordered oral tablet with food, 20 tab, Pain, Substitution Allowed Take with food acetaminophen 650 mg, 2 tab, Route: PO, Drug 10/15/2012 10/17/2012 Discontinued form: TAB, Q6H, Dosing Weight 81.534, kg, PRN Fever, Start date: 10/15/12 16:37:00, Duration: 30 day, Stop date: 11/14/12 16:36:00 Motrin 800 mg, 1 tab, Route: PO, Drug 10/15/2012 10/17/2012 Discontinued form: TAB, TID, Dosing Weight 81.534, kg, PRN Pain, Start date: 10/15/12 16:37:00, Duration: 30 day, Stop date: 11/14/12 16:36:00 Remeron 7.5 mg, 0.5 tab, Route: PO, Drug 10/15/2012 10/17/2012 Discontinued form: TAB, Bedtime, Dosing Weight 81.534, kg, Start date: 10/15/12 21:00:00, Duration: 30 day, Stop date: 11/13/12 21:00:00 tuberculin purified 5 unit, 0.1 mL, Route: INTRADERM, 10/13/2012 10/13/2012 Completed protein derivative Drug form: INJ, ONCE, Dosing Weight 65.909, kg, Start date: 10/13/12 9:00:00, Stop date: 10/13/12 9:00:00 amLODipine 10 mg 10 mg, 1 tab, PO, Daily, 30 tab, 10/14/2012 Suspended oral tablet Substitution Allowed, TAB clindamycin 300 mg 300 mg, 1 cap, PO, Q8H, 30 cap, 10/17/2012 10/27/2012 Ordered oral capsule Substitution Allowed amLODipine 10 mg, 2 tab, Route: PO, Drug form: 10/15/2012 10/17/2012 Discontinued TAB, Daily, Dosing Weight 70.455, kg, Start date: 10/15/12 9:00:00, Duration: 30 day, Stop date: 11/13/12 9:00:00 acetaminophen 650 mg, 2 tab, Route: PO, Drug 10/15/2012 10/17/2012 Discontinued form: TAB, Q6H, Dosing Weight 70.455, kg, PRN Pain, Start date: 10/15/12 5:20:00, Duration: 30 day, Stop date: 11/14/12 5:19:00 DuoNeb inhalation 3 ml, Route: INHALATION, Drug Form: 10/14/2012 10/17/2012 Discontinued solution SOLN, Dosing Weight 70.455, kg, RQID, PRN Respiratory Protocol, Start date: 10/14/12 21:40:00, Duration: 30 day, Stop date: 11/13/12 21:39:00 clindamycin + Sodium 600 mg, 4 mL, Route: IVPB, Drug 10/14/2012 10/17/2012 Discontinued Chloride 0.9% IV 100 form: INJ, ABXQ8H, Dosing Weight mL 70.455, kg, Start date: 10/14/12 22:00:00, Stop date: 11/13/12 16:30:00 pneumococcal 0.5 ml, Route: IM, Drug Form: INJ, 10/13/2012 10/13/2012 Completed 23-valent vaccine Start date: 10/13/12 9:00:00, Stop date: 10/13/12 9:00:00 Immunizations Vaccine Date Status influenza virus vaccine, inactivated 04/09/2012 Auth (Verified) pneumococcal 23-valent vaccine 10/13/2012 Auth (Verified) tuberculin purified protein derivative 10/13/2012 Not Done Vital Signs Most recent to oldest [Reference Range]: 1 2 3 Height 175.26 cm (10/14/2012 11:18:00) Current Weight 80.455 kg (10/16/2012 09:09:00) 81.534 kg (10/14/2012 20:00:00) Temperature Oral [96.4-99.1 DegF] 98.7 DegF (10/17/2012 16:00:00) 98.5 DegF (10/17/2012 12:00:00) 98.4 DegF (10/17/2012 08:00:00) Systolic Blood Pressure [90-140 mmHg] 124 mmHg (10/17/2012 16:00:00) 110 mmHg (10/17/2012 12:00:00) 117 mmHg (10/17/2012 08:00:00) Diastolic Blood Pressure [60-90 mmHg] 76 mmHg (10/17/2012 16:00:00) 72 mmHg (10/17/2012 12:00:00) 75 mmHg (10/17/2012 08:00:00) Respiratory Rate [14-20 BRMIN] 20 BRMIN (10/17/2012 16:00:00) 20 BRMIN (10/17/2012 12:00:00) 85 BRMIN *HI* (10/17/2012 09:35:00) Peripheral Pulse Rate [60-100 bpm] 75 bpm (10/17/2012 16:00:00) 80 bpm (10/17/2012 12:00:00) 64 bpm (10/17/2012 08:00:00) Weight 81.534 kg (10/14/2012 18:19:00) 70.455 kg (10/14/2012 11:18:00) Results URINALYSIS Most recent to oldest [Reference Range]: 1 UA Turbidity [Clear] Clear (10/14/2012 15:18:00) UA Color Ltyellow *NA* (10/14/2012 15:18:00) UA pH [5.0-8.0] 5.0 (10/14/2012 15:18:00) UA Spec Grav [<=1.030] 1.014 (10/14/2012 15:18:00) UA Glucose [Negative mg/dL] Negative mg/dL *NA* (10/14/2012 15:18:00) UA Blood [Negative] Small *ABN* (10/14/2012 15:18:00) UA Ketones [Negative mg/dL] Trace mg/dL *ABN* (10/14/2012 15:18:00) UA Protein [Negative mg/dL] Negative mg/dL (10/14/2012 15:18:00) UA Urobilinogen [0.1-1.0 mg/dL] <=1.0 mg/dL *NA* (10/14/2012:18:00) UA Bili [Negative] Negative *NA* (10/14/2012 15:18:00) UA Leuk Est [Negative] Negative (10/14/2012 15:18:00) UA Nitrite [Negative] Negative (10/14/2012 15:18:00) UA WBC [0-5 /HPF] 1 /HPF (10/14/2012 15:18:00) UA RBC [0-2 /HPF] 1 /HPF (10/14/2012 15:18:00) UA Sq Epi [Few /LPF] Occasional /LPF *NA* (10/14/2012 15:18:00) CHEMISTRY Most recent to oldest [Reference Range]: 1 Sodium Lvl [135-145 mEq/L] 147 mEq/L *HI* (10/14/2012:45:00) Potassium Lvl [3.5-5.1 mEq/L] 4.1 mEq/L (10/14/2012:45:00) Chloride Lvl [95-109 mEq/L] 109 mEq/L (10/14/2012:45:00) CO2 [24-32 mEq/L] 26 mEq/L (10/14/2012:45:00) AGAP [10.0-20.0 mEq/L] 16.1 mEq/L (10/14/2012:45:00) Creatinine Lvl [0.5-1.4 mg/dL] 1.0 mg/dL (10/14/2012:45:00) eGFR 76 mL/min/1.73m2 1 *NA* (10/14/2012:45:00) BUN [7-22 mg/dL] 11 mg/dL (10/14/2012:45:00) B/C Ratio [6-25] 11 (10/14/2012:45:00) Glucose Lvl [70-99 mg/dL] 81 mg/dL 2 (10/14/2012:45:00) Total Protein [6.4-8.4 g/dL] 7.7 g/dL (10/14/2012:45:00) Albumin Lvl [3.5-5.0 g/dL] 4.2 g/dL (10/14/2012:45:00) Globulin [2.0-4.0 g/dL] 3.5 g/dL (10/14/2012:45:00) A/G Ratio [0.7-1.6] 1.2 (10/14/2012:45:00) Calcium Lvl [8.5-10.5 mg/dL] 9.2 mg/dL (10/14/2012:45:00) ALT [0-65 unit/L] 21 unit/L (10/14/2012:45:00) AST [0-37 unit/L] 26 unit/L (10/14/2012:45:00) Alk Phos [39-136 unit/L] 82 unit/L (10/14/201245:) Bili Total [0.2-1.3 mg/dL] <0.1 mg/dL *LOW* (10/14/2012:45:) Lactic Acid Lvl [0.5-2.2 mMol/L] 1.2 mMol/L (10/14/2012:45:) 1Result Comment: The eGFR is calculated using [...] from the National Kidney Disease Education Program ( NKDEP) which additionally recommends that when the eGFR is used in patients with extremes of body mass index for purposes of drug dosing, the eGFR should be mul tiplied by the estimated BMI. 2Interpretive Data: Adult reference range values reflect the clinical guidelines of the [place] [employer]. HEMATOLOGY Most recent to oldest [Reference Range]: 1 WBC [3.7-10.4 K/CMM] 15.2 K/CMM *HI* (10/14/2012:45:) RBC [4.20-5.40 M/CMM] 4.30 M/CMM (10/14/201245:) Hgb [12.0-16.0 g/dL] 12.3 g/dL (10/14/201245:) Hct [36.0-48.0 %] 39.0 % (10/14/201245:) MCV [81.0-99.0 fL] 90.7 fL (10/14/201245:) MCH [27.0-31.0 pg] 28.6 pg (10/14/2012) MCHC [32.0-36.0 g/dL] 31.6 g/dL *LOW* (10/14/2012 17:45:00) RDW [11.5-14.5 %] 14.6 % *HI* (10/14/2012 17:45:00) Platelet [133-450 K/CMM] 343 K/CMM (10/14/2012 17:45:00) MPV [7.4-10.4 fL] 8.1 fL (10/14/2012 17:45:00) Segs [45.0-75.0 %] 51.4 % (10/14/2012 17:45:00) Lymphocytes [20.0-40.0 %] 38.6 % (10/14/2012 17:45:00) Monocytes [2.0-12.0 %] 4.1 % (10/14/2012 17:45:00) Eosinophils [0.0-4.0 %] 5.4 % *HI* (10/14/2012 17:45:00) Basophils [0.0-1.0 %] 0.5 % (10/14/2012 17:45:00) Segs-Bands # [1.5-8.1 K/CMM] 7.8 K/CMM (10/14/2012 17:45:00) Lymphocytes # [1.0-5.5 K/CMM] 5.9 K/CMM *HI* (10/14/2012 17:45:00) Monocytes # [0.0-0.8 K/CMM] 0.6 K/CMM (10/14/2012 17:45:00) Eosinophils # [0.0-0.5 K/CMM] 0.8 K/CMM *HI* (10/14/2012 17:45:00) Basophils # [0.0-0.2 K/CMM] 0.1 K/CMM (10/14/2012 17:45:00) Microbiology Reports PROCEDURE:Culture: Blood STATUS: In Progress BODY SITE: LAC COLLECTED DATE/TIME: 10/14/2012 16:00:23 SOURCE: Blood FREE TEXT SOURCE: PRELIMINARY REPORTS Preliminary Report No Growth At 1 Day Preliminary Report No Growth At 4 Days Preliminary Report No Growth At 2 Days Preliminary Report No Growth At 3 Days Preliminary Report No Growth; Holding PROCEDURE:Culture: Blood STATUS: In Progress BODY SITE: Arm R COLLECTED DATE/TIME: 10/14/2012 15:45:00 SOURCE: Blood FREE TEXT SOURCE: PRELIMINARY REPORTS Preliminary Report No Growth At 1 Day Preliminary Report No Growth; Holding Preliminary Report No Growth At 4 Days Preliminary Report No Growth At 3 Days Preliminary Report No Growth At 2 Days PROCEDURE:Culture: Urine STATUS: Auth (Verified) BODY SITE: COLLECTED DATE/TIME: 10/14/2012 15:18:00 SOURCE: Urine, Clean Catch FREE TEXT SOURCE: FINAL REPORTS Final Report 10,000 - 50,000 CFU/mL Skin Yajaira PRELIMINARY REPORTS Preliminary Report No Growth; Holding
--- OUTSIDE RECORDS SUMMARY | 2018-07-13 09:12 | XMS REPORT | CCD ---
Author Author Auto Generated Organization [facility] Address Unknown Phone Unavailable Care Team Providers Care Media Marketing Manager Name Role Phone Jim Duarte CP Allergies, Adverse Reactions, Alerts Substance Reaction Status NKDA Active Medications Medication Instructions Start Date End Date Status predniSONE 60 mg, 3 tab, Route: PO, Drug form: 09/29/2011 09/29/2011 Completed TAB, ONCE, Priority: STAT, Start date: 09/29/11 17:43:00, Stop date: 09/29/11 17:43:00 albuterol-ipratropiu 3 ml, Route: NEB, Drug Form: SOLN, 09/29/2011 09/29/2011 Completed m Q15Min, STAT, Start date: 09/29/11 17:43:00, Duration: 3 doses or times, Stop date: 09/29/11 18:13:00 Saline Flush 0.9% 5 ml, Route: IVP, Drug Form: INJ, 09/29/2011 09/30/2011 Discontinued PRN, PRN Line Flush, Start date: 09/29/11 17:43:00, Duration: 30 day, Stop date: 10/29/11 17:42:00 Periactin 4 mg oral 4 mg, 1 tab, PO, TID, 30 tab, 09/29/2011 10/09/2011 Ordered tablet Substitution Allowed, TAB albuterol 90 mcg/inh 2 puff, INHALATION, QID, PRN, 1 09/29/2011 Ordered inhalation aerosol unit, wheezing, Substitution Allowed, Soft Stop Vital Signs Most recent to oldest [Reference Range]: 1 Height 175.26 cm (09/29/2011 16:45:00) Weight 59.091 kg (09/29/2011 16:45:00)
--- OUTSIDE RECORDS SUMMARY | 2018-07-13 09:12 | XMS REPORT | CCD ---
Author Author Auto Generated Organization [facility] Address Unknown Phone Unavailable Care Team Providers Care Preschool Lead Teacher Name Role Phone Jean-Pierre Garcia CP Allergies, Adverse Reactions, Alerts Substance Reaction Status NKDA Active Medications Medication Instructions Start Date End Date Status albuterol-ipratropiu 3 ml, Route: NEB, Drug Form: SOLN, 09/04/2011 09/04/2011 Completed m Q15Min, STAT, Start date: 09/04/11 15:56:00, Duration: 3 doses or times, Stop date: 09/04/11 16:26:00 magnesium sulfate 2 gm, Route: IVPB, ONCE, Priority: 09/04/2011 09/04/2011 Discontinued STAT, Start date: 09/04/11 15:56:00, Stop date: 09/04/11 15:56:00 methylPREDNISolone 125 mg, Route: IVP, ONCE, Priority: 09/04/2011 09/04/2011 Discontinued SODium SUCCinate STAT, Start date: 09/04/11 taper each day 15:56:00, Stop date: 09/04/11 15:56:00 magnesium sulfate 2 2 gm, Route: IV, ONCE, Priority: 09/04/2011 09/04/2011 Completed gm in Water 50 ml STAT, Start date: 09/04/11 15:54:00, Stop date: 09/04/11 15:54:00 albuterol CFC free 2 puff, INHALATION, Q4H, PRN, 1 09/04/2011 Ordered 90 mcg/inh unit, for wheezing, Substitution inhalation aerosol Allowed, Soft Stop, AERO with adapter SoluMedrol 125 mg, Route: IV, ONCE, Priority: 09/04/2011 09/04/2011 Completed STAT, Start date: 09/04/11 15:51:00, Stop date: 09/04/11 15:51:00 predniSONE 50 mg 50 mg, 1 tab, PO, Daily, 5 tab, 09/04/2011 09/09/2011 Ordered oral tablet Substitution Allowed, TAB DuoNeb inhalation 9 mL, Route: INHALATION, ONCE, 09/04/2011 09/04/2011 Discontinued solution STAT, Start date: 09/04/11 15:51:00, Stop date: 09/04/11 15:51:00 Vital Signs Most recent to oldest [Reference Range]: 1 Height 175.26 cm (09/04/2011 15:25:00) Weight 72.727 kg (09/04/2011 15:25:00)
--- OUTSIDE RECORDS SUMMARY | 2018-07-13 09:12 | XMS REPORT | Summary of Care ---
Author Author [facility] Organization [facility] Address Unknown Phone Unavailable Encounter LADY Lomax(FREDERIC) [id number] Date(s): 10/12/14 - 10/13/14 [facility] [address] [place] [address]- Discharge Diagnosis: COPD (chronic obstructive pulmonary disease) Discharge Disposition: Home Attending Physician: Paty Morrell MD Vital Signs 1 2 3 Most recent to oldest [Reference Range]: 98.6 DegF (10/13/14 1:25 AM) 98.6 DegF (10/12/14 11:40 PM) Temperature Oral [96.4-99.1 DegF] 1 2 3 Most recent to oldest [Reference Range]: 139/75 mmHg (10/13/14 1:25 AM) 137/77 mmHg (10/13/14 12:03 AM) 131/77 mmHg (10/12/14 11:40 PM) Blood Pressure [90-140/60-90 mmHg] 1 2 3 Most recent to oldest [Reference Range]: 18 BRMIN (10/13/14 1:25 AM) 16 BRMIN (10/13/14 12:27 AM) 20 BRMIN (10/13/14 12:03 AM) Respiratory Rate [14-20 BRMIN] 1 2 3 Most recent to oldest [Reference Range]: 77 bpm (10/13/14 1:25 AM) 84 bpm (10/13/14 12:03 AM) 98 bpm (10/12/14 11:40 PM) Peripheral Pulse Rate [60-100 bpm] 1 2 3 Most recent to oldest [Reference Range]: 72.727 kg (10/12/14 11:40 PM) Weight Problem List Condition Effective Dates Status Health Status Informant Asthma(Confirmed) Active COPD(Confirmed) Active High blood Active pressure(Confirmed) Allergies, Adverse Reactions, Alerts Substance Reaction Severity Status Rocephin Active Medications albuterol 0.083% inhalation solution 2.49 mg, 3 mL, Route: NEB, Drug form: SOLN, ONCE, Dosing Weight 72.727, kg, Prio rity: STAT, Start date: 10/13/14 0:04:00, Stop date: 10/13/14 0:04:00 Notes: SEE RT DOCUMENTATION (Same as: Proventil) Start Date: 10/13/14 Stop Date: 10/13/14 Status: Completed albuterol-ipratropium 2.5-0.5 mg inhalation solution 3 mL, Route: NEB, Drug Form: SOLN, Dosing Weight 72.727, kg, ONCE, STAT, Start d ate: 10/12/14 23:53:00, Stop date: 10/12/14 23:53:00 Start Date: 10/12/14 Stop Date: 10/13/14 Status: Completed magnesium sulfate 2 gm, Route: IVPB, ONCE, Dosing Weight 72.727, kg, Priority: STAT, Start date: 0 10/13/14 0:04:00, Stop date: 10/13/14 0:04:00 Start Date: 10/13/14 Stop Date: 10/13/14 Status: Completed methylPREDNISolone SODium SUCCinate 125 mg, Route: IVP, ONCE, Dosing Weight 72.727, kg, Priority: STAT, Start date: 10/13/14 0:04:00, Stop date: 10/13/14 0:04:00 Start Date: 10/13/14 Stop Date: 10/13/14 Status: Completed predniSONE 20 mg oral tablet 60 mg=3 tab, PO, Daily, Take 3 tablets for 60 mg dose, X 5 day, # 15 tab, 0 Refi ll(s) Special Instructions: Take 3 tablets for 60 mg dose Start Date: 10/13/14 Stop Date: 10/18/14 Status: Ordered Saline Flush 0.9% 10 mL, Route: IVP, Drug Form: INJ, Dosing Weight 72.727, kg, PRN, PRN Line Flush , Start date: 10/12/14 23:53:00, Duration: 30 day, Stop date: 11/11/14 23:52:00 Notes: (Same as: BD Posiflush) Start Date: 10/12/14 Stop Date: 10/13/14 Status: Discontinued Results ELECTROLYTES Most recent to 1 oldest [Reference Range]: Sodium Lvl [135-145 140 mEq/L mEq/L] (10/13/14 12:10 AM) Potassium Lvl 3.7 mEq/L [3.5-5.1 mEq/L] (10/13/14 12:10 AM) Chloride Lvl [95-109 106 mEq/L mEq/L] (10/13/14 12:10 AM) CO2 [24-32 mEq/L] 28 mEq/L (10/13/14 12:10 AM) AGAP [10.0-20.0 9.7 mEq/L mEq/L] *LOW* (10/13/14:10 AM) CHEM PANEL Most recent to 1 oldest [Reference Range]: Creatinine Lvl 0.8 mg/dL [0.5-1.4 mg/dL] (10/13/14 12:10 AM) eGFR 98 mL/min/1.73m2 1 *NA* (10/13/14 12:10 AM) BUN [7-22 mg/dL] 12 mg/dL (10/13/14 12:10 AM) B/C Ratio [6-25] 15 (10/13/14 12:10 AM) Glucose Lvl [70-99 95 mg/dL mg/dL] (10/13/14 12:10 AM) Total Protein 7.4 g/dL [6.4-8.4 g/dL] (10/13/14 12:10 AM) Albumin Lvl [3.5-5.0 3.6 g/dL g/dL] (10/13/14 12:10 AM) Globulin [2.0-4.0 3.8 g/dL g/dL] (10/13/14 12:10 AM) A/G Ratio [0.7-1.6] 0.9 (10/13/14 12:10 AM) Calcium Lvl 8.6 mg/dL [8.5-10.5 mg/dL] (10/13/14 12:10 AM) ALT [0-65 unit/L] 20 unit/L (10/13/14 12:10 AM) AST [0-37 unit/L] 18 unit/L (10/13/14 12:10 AM) Alk Phos [39-136 77 unit/L unit/L] (10/13/14 12:10 AM) Bili Total [0.2-1.3 0.1 mg/dL mg/dL] *LOW* (10/13/14 12:10 AM) 1Result Comment: The eGFR is calculated using [...] be mul tiplied by the estimated BMI. CARDIAC ENZYMES Most recent to 1 oldest [Reference Range]: Total CK [12-191 209 unit/L unit/L] *HI* (10/13/14 12:10 AM) CK MB [0.5-3.6 1.6 ng/mL ng/mL] (10/13/14 12:10 AM) CK MB Index 0.8 [0.0-2.5] (10/13/14 12:10 AM) Troponin-I <0.02 ng/mL [0.00-0.40 ng/mL] (10/13/14 12:10 AM) BNP [<=100 pg/mL] 11 pg/mL (10/13/14 12:10 AM) IMMUNOLOGY Most recent to 1 oldest [Reference Range]: CDC HIV 4th GEN Negative [Negative] (10/13/14 12:10 AM) [place]-Hep C Ab Negative [Negative] *NA* (10/13/14 12:10 AM) HEMATOLOGY Most recent to 1 oldest [Reference Range]: WBC [3.7-10.4 K/CMM] 8.8 K/CMM (10/13/14 12:10 AM) RBC [4.20-5.40 4.32 M/CMM M/CMM] (10/13/14 12:10 AM) Hgb [12.0-16.0 g/dL] 12.4 g/dL (10/13/14 12:10 AM) Hct [36.0-48.0 %] 38.1 % (10/13/14 12:10 AM) MCV [80.0-98.0 fL] 88.2 fL (10/13/14:10 AM) MCH [27.0-31.0 pg] 28.7 pg (10/13/1410 AM) MCHC [32.0-36.0 32.6 g/dL g/dL] (10/13/14 12:10 AM) RDW [11.5-14.5 %] 14.2 % (10/13/14 12:10 AM) Platelet [133-450 298 K/CMM K/CMM] (10/13/14 12:10 AM) MPV [7.4-10.4 fL] 8.0 fL (10/13/14:10 AM) Segs [45.0-75.0 %] 32.9 % *LOW* (10/13/14 12:10 AM) Lymphocytes 50.2 % [20.0-40.0 %] *HI* (10/13/14 12:10 AM) Monocytes [2.0-12.0 10.2 % %] (10/13/14 12:10 AM) Eosinophils [0.0-4.0 6.0 % %] *HI* (10/13/14:10 AM) Basophils [0.0-1.0 0.7 % %] (10/13/14 12:10 AM) Segs-Bands # 2.9 K/CMM [1.5-8.1 K/CMM] (10/13/14 12:10 AM) Lymphocytes # 4.4 K/CMM [1.0-5.5 K/CMM] (10/13/14 12:10 AM) Monocytes # [0.0-0.8 0.9 K/CMM K/CMM] *HI* (10/13/14 12:10 AM) Eosinophils # 0.5 K/CMM [0.0-0.5 K/CMM] (10/13/14 12:10 AM) Basophils # [0.0-0.2 0.1 K/CMM K/CMM] (10/13/14 12:10 AM) PT [12.0-14.7 12.6 seconds seconds] (10/13/14 12:10 AM) INR [0.85-1.17] 0.94 (10/13/14 12:10 AM) PTT [22.9-35.8 28.1 seconds seconds] (10/13/14 12:10 AM) Immunizations Vaccine Date Refusal Reason influenza virus vaccine, inactivated 04/09/12 pneumococcal 23-valent vaccine 10/13/12 Procedures Procedure Date Related Diagnosis Body Site D&C - Dilatation and curettage Tubal ligation Social History Social History Type Response Smoking Status Current every day smoker; Type: Cigarettes; Tobacco use per day: 7; Number of years: 20; Exposure to Tobacco Smoke None; Cigarette Smoking Last 365 Days No; Reg Smoking Cessation Counseling No Assessment and Plan No data available for this section
--- OUTSIDE RECORDS SUMMARY | 2018-07-13 09:12 | XMS REPORT | CCD ---
Author Author Auto Generated Organization [facility] Address Unknown Phone Unavailable Care Team Providers Care Assistant Banquet Manager Name Role Phone Sudarshan Mckeon CP Allergies, Adverse Reactions, Alerts Substance Reaction Status NKDA Active Medications Medication Instructions Start Date End Date Status Zyrtec 10 mg oral 10 mg, 1 tab, PO, Daily, 30 tab, 01/24/2012 Ordered tablet Substitution Allowed, TAB Levaquin 750 mg oral 750 mg, 1 tab, PO, Q24H, 7 tab, 01/24/2012 01/31/2012 Ordered tablet Substitution Allowed, TAB predniSONE 20 mg 60 mg, 3 tab, PO, ONCE, Take 3 01/24/2012 01/27/2012 Ordered oral tablet tablets for 60 mg dose, 9 tab, Substitution Allowed Take 3 tablets for 60 mg dose albuterol 90 mcg/inh 1 puff, INHALATION, QID, PRN, 1 ea, 01/24/2012 Ordered inhalation aerosol wheezing, Substitution Allowed, Maintenance cyproheptadine 4 mg 4 mg, 1 tab, PO, TID, 30 tab, 01/24/2012 02/03/2012 Ordered oral tablet Substitution Allowed, TAB methylPREDNISolone 125 mg, Route: IVP, ONCE, Dosing 01/24/2012 01/24/2012 Completed SODium SUCCinate Weight 70.455, kg, Priority: STAT, taper each day Start date: 01/24/12 13:15:00, Stop date: 01/24/12 13:15:00 ipratropium 0.5 mg, Route: NEB, ONCE, Dosing 01/24/2012 01/24/2012 Completed Weight 70.455, kg, Priority: STAT, Start date: 01/24/12 13:15:00, Stop date: 01/24/12 13:15:00 albuterol 0.083% 5 mg, 6.02 mL, Route: NEB, Drug 01/24/2012 01/25/2012 Discontinued inhalation solution form: SOLN, Continuous, Dosing Weight 70.455, kg, PRN Dyspnea, 5 mg/hr for non intubated patients; 10 mg/hr for intubated patients, Priority: STAT, Start date: 01/24/12 13:15:00, Duration: 30 day, Stop date: 02/23/12 13... Saline Flush 0.9% 5 ml, Route: IVP, Drug Form: INJ, 01/24/2012 01/25/2012 Discontinued Dosing Weight 70.455, kg, PRN, PRN Line Flush, Start date: 01/24/12 13:15:00, Duration: 30 day, Stop date: 02/23/12 13:14:00 Vital Signs Most recent to oldest [Reference Range]: 1 Height 175.26 cm (01/24/2012 13:08:00) Weight 70.455 kg (01/24/2012 13:08:00) Results CHEMISTRY Most recent to oldest [Reference Range]: 1 Sodium Lvl [135-145 mEq/L] 141 mEq/L (01/24/2012 13:25:00) Potassium Lvl [3.5-5.1 mEq/L] 3.6 mEq/L (01/24/2012 13:25:00) Chloride Lvl [95-109 mEq/L] 105 mEq/L (01/24/2012 13:25:00) CO2 [24-32 mEq/L] 28 mEq/L (01/24/2012 13:25:00) AGAP [10.0-20.0 mEq/L] 11.6 mEq/L (01/24/2012 13:25:00) Creatinine Lvl [0.5-1.4 mg/dL] 0.9 mg/dL (01/24/2012 13:25:00) eGFR 86 mL/min/1.73m2 1 *NA* (01/24/2012 13:25:00) BUN [7-22 mg/dL] 6 mg/dL *LOW* (01/24/2012 13:25:00) B/C Ratio [6-25] 7 (01/24/2012 13:25:00) Glucose Lvl [70-99 mg/dL] 93 mg/dL 2 (01/24/2012 13:25:00) Total Protein [6.4-8.4 g/dL] 8.6 g/dL *HI* (01/24/2012:25:00) Albumin Lvl [3.5-5.0 g/dL] 4.4 g/dL (01/24/2012:25:00) Globulin [2.0-4.0 g/dL] 4.2 g/dL *HI* (01/24/2012:25:00) A/G Ratio [0.7-1.6] 1.0 (01/24/2012:25:00) Calcium Lvl [8.5-10.5 mg/dL] 9.8 mg/dL (01/24/2012:25:00) ALT [0-65 unit/L] 17 unit/L (01/24/2012:25:00) AST [0-37 unit/L] 25 unit/L (01/24/2012:25:00) Alk Phos [39-136 unit/L] 66 unit/L (01/24/2012:25:00) Bili Total [0.2-1.3 mg/dL] 0.4 mg/dL (01/24/2012:25:00) Total CK [12-191 unit/L] 211 unit/L *HI* (01/24/2012:25:00) CK MB [0.5-3.6 ng/mL] 2.7 ng/mL (01/24/2012:25:00) CK MB Index [0.0-2.5] 1.3 (01/24/201225:) Troponin-I [0.00-0.40 ng/mL] <0.02 ng/mL (01/24/2012:25:00) 1Result Comment: The eGFR is calculated using [...] values reflect the clinical guidelines of the [place] [employer]. HEMATOLOGY Most recent to oldest [Reference Range]: 1 WBC [3.7-10.4 K/CMM] 7.1 K/CMM (01/24/2012:25:00) RBC [4.20-5.40 M/CMM] 4.36 M/CMM (01/24/2012:25:00) Hgb [12.0-16.0 g/dL] 12.8 g/dL (01/24/201225) Hct [36.0-48.0 %] 39.1 % (01/24/2012:) MCV [81.0-99.0 fL] 89.6 fL (01/24/2012:25:00) MCH [27.0-31.0 pg] 29.3 pg (01/24/2012:25:00) MCHC [32.0-36.0 g/dL] 32.7 g/dL (01/24/2012:25:00) RDW [11.5-14.5 %] 14.7 % *HI* (01/24/201225) Platelet [133-450 K/CMM] 283 K/CMM (01/24/2012:25) MPV [7.4-10.4 fL] 7.8 fL (01/24/2012:25:00) Segs [45.0-75.0 %] 51.2 % (01/24/2012:25:00) Lymphocytes [20.0-40.0 %] 34.0 % (01/24/20122500) Monocytes [2.0-12.0 %] 9.0 % (01/24/2012:25:) Eosinophils [0.0-4.0 %] 5.1 % *HI* (01/24/2012 13:25:00) Basophils [0.0-1.0 %] 0.7 % (01/24/2012 13:25:00) Segs-Bands # [1.5-8.1 K/CMM] 3.6 K/CMM (01/24/2012 13:25:00) Lymphocytes # [1.0-5.5 K/CMM] 2.4 K/CMM (01/24/2012 13:25:00) Monocytes # [0.0-0.8 K/CMM] 0.6 K/CMM (01/24/2012 13:25:00) Eosinophils # [0.0-0.5 K/CMM] 0.4 K/CMM (01/24/2012 13:25:00) Basophils # [0.0-0.2 K/CMM] 0.0 K/CMM (01/24/2012 13:25:00) PT [12.0-14.7 seconds] 12.8 seconds (01/24/2012 13:25:00) INR [0.85-1.17] 0.94 3 (01/24/2012 13:25:00) PTT [22.9-35.8 seconds] 26.5 seconds 4 (01/24/2012 13:25:00) 3Interpretive Data: RECOMMENDED RANGES FOR PROTIME INR: 2.0-3.0 for most medical and surgical thromboembolic states. 2.5-3.5 for artificial heart valves and recurrent embolism. INR SHOULD BE USED ONLY FOR PATIENTS ON STABLE ANTICOAGULANT THERAPY. 4Interpretive Data: Heparin Therapeutic Range: 57 - 92 Seconds
--- OUTSIDE RECORDS SUMMARY | 2018-07-13 09:12 | XMS REPORT | CCD ---
Author Author Auto Generated Organization [facility] Address Unknown Phone Unavailable Care Team Providers Care Transport Tech Name Role Phone Sihra Guzman CP Allergies, Adverse Reactions, Alerts Substance Reaction Status NKDA Active Medications Medication Instructions Start Date End Date Status Zithromax Z-Joe 250 Take 2 Tabs on Day 1, THEN 1 Tab 10/07/2011 Ordered mg oral tablet Daily Day 2 to 4, PO, Daily, 1 Pack, Substitution Allowed, Take as directed Take as directed albuterol CFC free 1 puff, INHALATION, Q4H, PRN, 1 10/07/2011 Ordered 90 mcg/inh unit, for wheezing, Substitution inhalation aerosol Allowed, Soft Stop, AERO with adapter Medrol 4 mg oral 1 pkt, PO, ONCE, 6 pkt, 10/07/2011 10/13/2011 Ordered tablet Substitution Allowed, as directed on package labeling, TAB as directed on package labeling Saline Flush 0.9% 5 ml, Route: IVP, Drug Form: INJ, 10/07/2011 10/07/2011 Discontinued PRN, PRN Line Flush, Start date: 10/07/11 6:20:00, Duration: 30 day, Stop date: 11/06/11 6:19:00 methylPREDNISolone 125 mg, Route: IVP, ONCE, Priority: 10/07/2011 10/07/2011 Completed SODium SUCCinate STAT, Start date: 10/07/11 6:20:00, taper each day Stop date: 10/07/11 6:20:00 magnesium sulfate 2 gm, Route: IVPB, ONCE, Priority: 10/07/2011 10/07/2011 Completed STAT, Start date: 10/07/11 6:20:00, Stop date: 10/07/11 6:20:00 DuoNeb inhalation 3 mL, Route: INHALATION, ONCE, 10/07/2011 10/07/2011 Completed solution Start date: 10/07/11 6:17:00, Stop date: 10/07/11 6:17:00 DuoNeb inhalation 3 mL, Route: INHALATION, ONCE, 10/07/2011 10/07/2011 Completed solution Start date: 10/07/11 6:17:00, Stop date: 10/07/11 6:17:00 albuterol CFC free 2 puff, INHALATION, Q6H, PRN, 1 10/07/2011 Ordered 90 mcg/inh pkt, for wheezing, Substitution inhalation aerosol Allowed, Soft Stop, AERO with adapter Medrol Dosepak 4 mg As Directed by Physician; Follow 10/07/2011 10/13/2011 Ordered Tablet Label, PO, Daily, 1 Pack, Substitution Allowed Zithromax Z-Joe 250 250 mg, 1 tab, PO, Daily, 1 Pack, 10/07/2011 Ordered mg oral tablet Substitution Allowed, TAKE 2 TABLETS ON DAY 1; TAKE 1 TABLET ON DAYS 2 - 5 TAKE 2 TABLETS ON DAY 1; TAKE 1 TABLET ON DAYS 2 - 5 Vital Signs Most recent to oldest [Reference Range]: 1 Height 175.26 cm (10/07/2011 06:02:00) Weight 72.727 kg (10/07/2011 06:02:00)
--- OUTSIDE RECORDS SUMMARY | 2018-07-13 09:12 | XMS REPORT | CCD ---
Author Author Auto Generated Organization [facility] Address Unknown Phone Unavailable Care Team Providers Care Foundry Laborer Coreroom Name Role Phone Chon Haas CP Allergies, Adverse Reactions, Alerts Substance Reaction Status NKDA Rocephin Active Problem List Condition Effective Dates Status Asthma Active COPD Active High blood pressure Active Medications Medication Instructions Start Date End Date Status acetaminophen 650 mg, 2 tab, Route: PO, Drug 04/09/2012 04/10/2012 Discontinued form: TAB, Q4H, Dosing Weight 77.983, kg, PRN Pain, Start date: 04/09/12 12:07:00, Duration: 30 day, Stop date: 05/09/12 12:06:00 Proventil HFAd 2 puff, Q4H, PRN, as needed for 04/08/2012 04/10/2012 Discontinued wheezing, Substitution Allowed, Maintenance Xopenex 0.63 mg, NEB, Q8H, PRN, as needed 04/08/2012 Ordered for wheezing, Substitution Allowed, AERO influenza virus 0.5 ml, Route: IM, Drug Form: INJ, 04/09/2012 04/09/2012 Completed vaccine, inactivated Start date: 04/09/12 9:00:00, Stop date: 04/09/12 9:00:00 ipratropium 0.5 mg, 2.5 mL, Route: NEB, Drug 04/08/2012 04/08/2012 Completed form: SOLN, ONCE, Dosing Weight 72.727, kg, Priority: STAT, Start date: 04/08/12 15:09:00, Stop date: 04/08/12 15:09:00 albuterol 0.083% 5 mg, 6.02 mL, Route: NEB, Drug 04/08/2012 04/08/2012 Discontinued inhalation solution form: SOLN, Continuous, Dosing Weight 72.727, kg, PRN Dyspnea, 5 mg/hr for non intubated patients; 10 mg/hr for intubated patients, Priority: STAT, Start date: 04/08/12 15:09:00, Duration: 30 day, Stop date: 05/08/12 15... Rocephin 1 gm, Route: IV, Drug form: 04/08/2012 04/08/2012 Completed PDR/INJ, ONCE, Dosing Weight 72.727, kg, Start date: 04/08/12 15:09:00, Stop date: 04/08/12 15:09:00 magnesium sulfate 2 gm, 50 mL, Route: IVPB, Drug 04/08/2012 04/08/2012 Completed form: INJ, ONCE, Dosing Weight 72.727, kg, Priority: STAT, Start date: 04/08/12 15:09:00, Stop date: 04/08/12 15:09:00 methylPREDNISolone 125 mg, 2 mL, Route: IVP, Drug 04/08/2012 04/08/2012 Completed SODium SUCCinate form: INJ, ONCE, Dosing Weight taper each day 72.727, kg, Priority: STAT, Start date: 04/08/12 15:09:00, Stop date: 04/08/12 15:09:00 Zithromax + Sodium 500 mg, Route: IV, ONCE, Dosing 04/08/2012 04/08/2012 Completed Chloride 0.9% IV 250 Weight 72.727, kg, Start date: mL 04/08/12 15:09:00, Stop date: 04/08/12 15:09:00 Saline Flush 0.9% 5 ml, Route: IVP, Drug Form: INJ, 04/08/2012 04/08/2012 Discontinued Dosing Weight 72.727, kg, PRN, PRN Line Flush, Start date: 04/08/12 15:09:00, Duration: 30 day, Stop date: 05/08/12 15:08:00 Levaquin 500 mg oral 500 mg, 1 tab, PO, Q24H, 5 tab, 04/10/2012 04/15/2012 Ordered tablet Substitution Allowed influenza virus 0.5 ml, Route: IM, Drug Form: INJ, 04/09/2012 04/09/2012 Completed vaccine, inactivated Daily, Start date: 04/09/12 9:00:00, Duration: 1 doses or times, Stop date: 04/09/12 9:00:00 predniSONE 20 mg 20 mg, 1 tab, PO, Daily, 7 tab, 04/10/2012 04/17/2012 Ordered oral tablet Substitution Allowed, TAB Tessalon Perles 100 100 mg, 1 cap, PO, TID, 21 cap, 04/10/2012 04/17/2012 Ordered mg oral capsule Substitution Allowed, CAP Proventil HFA 90 2 puff, INHALATION, Q4H, PRN, 1 04/10/2012 Ordered mcg/inh inhalation can, as needed for wheezing, aerosol with adapter Substitution Allowed, Maintenance, AERO/A aspirin 325 mg 325 mg, Route: PO, Drug form: TAB, 04/08/2012 04/08/2012 Completed tablet ONCE, Dosing Weight 72.727, kg, Priority: STAT, Start date: 04/08/12 16:49:00, Stop date: 04/08/12 16:49:00 Saline Flush 0.9% 5 ml, Route: IVP, Drug Form: INJ, 04/08/2012 04/10/2012 Discontinued Dosing Weight 72.727, kg, PRN, PRN Line Flush, Start date: 04/08/12 18:09:00, Duration: 30 day, Stop date: 05/08/12 18:08:00 Zithromax 500 mg, 250 mL, Route: IV, Drug 04/09/2012 04/08/2012 Canceled form: PDR/INJ, Q24H, Dosing Weight 72.727, kg, Start date: 04/09/12 18:00:00, Duration: 30 day, Stop date: 05/08/12 18:00:00 Levaquin 750 mg, 150 mL, Route: IV, Drug 04/08/2012 04/10/2012 Discontinued form: SOLN, Q24H, Dosing Weight 72.727, kg, Start date: 04/08/12 20:00:00, Duration: 30 day, Stop date: 05/07/12 20:00:00 albuterol-ipratropiu 3 mL, Route: NEB, Drug Form: SOLN, 04/08/2012 04/10/2012 Discontinued m 2.5-0.5 mg Dosing Weight 72.727, kg, PRN, PRN inhalation solution Respiratory Protocol, Start date: 04/08/12 18:09:00, Duration: 30 day, Stop date: 05/08/12 18:08:00 albuterol 0.083% 2.49 mg, 3 mL, Route: NEB, Drug 04/08/2012 04/10/2012 Discontinued inhalation solution form: SOLN, PRN, Dosing Weight 72.727, kg, PRN Respiratory Protocol, Start date: 04/08/12 18:09:00, Duration: 30 day, Stop date: 05/08/12 18:08:00 ipratropium 0.5 mg, 2.5 mL, Route: NEB, Drug 04/08/2012 04/10/2012 Discontinued form: SOLN, PRN, Dosing Weight 72.727, kg, PRN Respiratory Protocol, Start date: 04/08/12 18:09:00, Duration: 30 day, Stop date: 05/08/12 18:08:00 methylPREDNISolone 80 mg, 2 mL, Route: IVP, Drug form: 04/09/2012 04/08/2012 Canceled SODium SUCCinate INJ, Q24H, Dosing Weight 72.727, kg, Start date: 04/09/12 15:00:00, Duration: 30 day, Stop date: 05/08/12 15:00:00 SoluMedrol 125 mg, 2 mL, Route: IVP, Drug 04/08/2012 04/10/2012 Discontinued form: INJ, Q12H, Dosing Weight 77.983, kg, Start date: 04/08/12 21:00:00, Duration: 30 day, Stop date: 05/08/12 9:00:00 enoxaparin 40 mg, 0.4 mL, Route: SUB-Q, Drug 04/08/2012 04/10/2012 Discontinued form: INJ, [id number], Dosing Weight 77.983, kg, Start date: 04/08/12 20:00:00, Duration: 30 day, Stop date: 05/07/12 20:00:00 Pepcid 20 mg, Route: IV, ONCE, Dosing 04/08/2012 04/08/2012 Completed Weight 72.727, kg, Start date: 04/08/12 17:37:00, Stop date: 04/08/12 17:37:00 Benadryl 25 mg, Route: IVP, ONCE, Dosing 04/08/2012 04/08/2012 Completed Weight 72.727, kg, PRN Itching, Start date: 04/08/12 17:36:00 predniSONE 40 mg, Route: PO, Drug form: TAB, 04/09/2012 04/08/2012 Canceled Daily, Dosing Weight 77.983, kg, Start date: 04/09/12 9:00:00, Duration: 30 day, Stop date: 05/08/12 9:00:00 Ambien 10 mg, 1 tab, Route: PO, Drug form: 04/09/2012 04/10/2012 Discontinued TAB, Bedtime, Dosing Weight 77.983, kg, PRN Insomnia, Start date: 04/09/12 0:44:00, Duration: 30 day, Stop date: 05/09/12 0:43:00 Immunizations Vaccine Date Status influenza virus vaccine, inactivated 04/09/2012 Auth (Verified) Vital Signs Most recent to oldest [Reference Range]: 1 2 3 Height 175.26 cm (04/08/2012 18:17:00) 177.80 cm (04/08/2012 15:14:00) Temperature Oral [96.4-99.1 DegF] 98.3 DegF (04/10/2012 12:00:00) 98.2 DegF (04/10/2012 08:00:00) 97.8 DegF (04/10/2012 04:00:00) Systolic Blood Pressure [90-140 mmHg] 153 mmHg *HI* (04/10/2012 12:00:00) 132 mmHg (04/10/2012 09:24:00) 151 mmHg *HI* (04/10/2012 08:00:00) Diastolic Blood Pressure [60-90 mmHg] 92 mmHg *HI* (04/10/2012 12:00:00) 84 mmHg (04/10/2012 09:24:00) 99 mmHg *HI* (04/10/2012 08:00:00) Respiratory Rate [14-20 BRMIN] 20 BRMIN (04/10/2012 12:00:00) 14 BRMIN (04/10/2012 09:45:00) 18 BRMIN (04/10/2012 08:00:00) Peripheral Pulse Rate [60-100 bpm] 74 bpm (04/10/2012 12:00:00) 60 bpm (04/10/2012 09:24:00) 67 bpm (04/10/2012 08:00:00) Weight 77.983 kg (04/08/2012 18:17:00) 72.727 kg (04/08/2012 15:14:00) Results URINALYSIS Most recent to oldest [Reference Range]: 1 2 UA Turbidity [Clear] Clear (04/08/2012 00:25:00) Clear (04/08/2012 00:25:00) UA Color Ltyellow *NA* (04/08/2012 00:25:00) Ltyellow *NA* (04/08/2012 00:25:00) UA pH [5.0-8.0] 5.0 (04/08/2012 00:25:00) 5.0 (04/08/2012 00:25:00) UA Spec Grav [<=1.030] 1.017 (04/08/2012 00:25:00) 1.017 (04/08/2012 00:25:00) UA Glucose [Negative mg/dL] Negative mg/dL *NA* (04/08/2012 00:25:00) Negative mg/dL *NA* (04/08/2012 00:25:00) UA Blood [Negative] Small *ABN* (04/08/2012 00:25:00) Small *ABN* (04/08/2012 00:25:00) UA Ketones [Negative mg/dL] Negative mg/dL *NA* (04/08/2012 00:25:00) Negative mg/dL *NA* (04/08/2012 00:25:00) UA Protein [Negative mg/dL] Negative mg/dL (04/08/2012 00:25:00) Negative mg/dL (04/08/2012 00:25:00) UA Urobilinogen [0.1-1.0 mg/dL] <=1.0 mg/dL *NA* (04/08/2012 00:25:00) <=1.0 mg/dL *NA* (04/08/2012 00:25:00) UA Bili [Negative] Negative *NA* (04/08/2012 00:25:00) Negative *NA* (04/08/2012 00:25:00) UA Leuk Est [Negative] Negative (04/08/2012 00:25:00) Negative (04/08/2012 00:25:00) UA Nitrite [Negative] Negative (04/08/2012 00:25:00) Negative (04/08/2012 00:25:00) UA WBC [0-5 /HPF] 1 /HPF (04/08/2012 00:25:00) 1 /HPF (04/08/2012 00:25:00) UA RBC [0-2 /HPF] <1 /HPF (04/08/2012 00:25:00) <1 /HPF (04/08/2012 00:25:00) UA Sq Epi [Few /LPF] Few /LPF *NA* (04/08/2012 00:25:00) Few /LPF *NA* (04/08/2012 00:25:00) UA Mucus [None Seen /LPF] Few /LPF *NA* (04/08/2012 00:25:00) Few /LPF *NA* (04/08/2012 00:25:00) CHEMISTRY Most recent to oldest [Reference Range]: 1 2 Sodium Lvl [135-145 mEq/L] 143 mEq/L (04/08/2012 15:09:00) Potassium Lvl [3.5-5.1 mEq/L] 3.6 mEq/L (04/08/2012 15:09:00) Chloride Lvl [95-109 mEq/L] 110 mEq/L *HI* (04/08/2012 15:09:00) CO2 [24-32 mEq/L] 27 mEq/L (04/08/2012 15:09:00) AGAP [10.0-20.0 mEq/L] 9.6 mEq/L *LOW* (04/08/2012 15:09:00) Creatinine Lvl [0.5-1.4 mg/dL] 1.0 mg/dL (04/08/2012 15:09:00) eGFR 76 mL/min/1.73m2 1 *NA* (04/08/2012 15:09:00) BUN [7-22 mg/dL] 11 mg/dL (04/08/201204/2012) B/C Ratio [6-25] 11 (04/08/2012:) Glucose Lvl [70-99 mg/dL] 113 mg/dL 2 *HI* (04/08/2012) Total Protein [6.4-8.4 g/dL] 7.9 g/dL (04/08/2012) Albumin Lvl [3.5-5.0 g/dL] 4.1 g/dL (04/08/2012) Globulin [2.0-4.0 g/dL] 3.8 g/dL (04/08/2012) A/G Ratio [0.7-1.6] 1.1 (04/08/2012) Calcium Lvl [8.5-10.5 mg/dL] 9.0 mg/dL (04/08/2012) Phosphorus [2.5-4.5 mg/dL] 4.7 mg/dL *HI* (04/08/2012) Magnesium Lvl [1.8-2.4 mg/dL] 1.9 mg/dL (04/08/2012:) ALT [0-65 unit/L] 16 unit/L (04/08/2012:) AST [0-37 unit/L] 14 unit/L (04/08/2012:) Alk Phos [39-136 unit/L] 68 unit/L (04/08/2012) Bili Total [0.2-1.3 mg/dL] 0.2 mg/dL (04/08/2012:) Lactic Acid Lvl [0.5-2.2 mMol/L] 1.7 mMol/L (04/08/2012 16:10:00) Total CK [12-191 unit/L] 131 unit/L (04/08/2012 23:22:00) 121 unit/L (04/08/2012:) CK MB [0.5-3.6 ng/mL] 2.3 ng/mL (04/08/2012 23:22:00) 1.4 ng/mL (04/08/2012::) CK MB Index [0.0-2.5] 1.8 (04/08/2012:22:00) 1.2 (04/08/2012:) Troponin-I [0.00-0.40 ng/mL] <0.02 ng/mL (04/08/2012::00) <0.02 ng/mL (04/08/2012:) BNP [<=100 pg/mL] 11 pg/mL 3 (04/08/2012:) pH Art [7.35-7.45] 7.35 (04/08/201235:) pCO2 Art [35-45 mmHg] 49 mmHg *HI* (04/08/2012:35:) pO2 Art [80-100 mmHg] 66 mmHg *LOW* (04/08/2012:35:) HCO3 Art [22-26 mMol/L] 27 mMol/L *HI* (04/08/2012:35:00) BE Art [-2-2 mMol/L] 1 mMol/L (04/08/2012:35:) O2 Sat Art [95.0-100.0 %] 91.6 % *LOW* (04/08/2012:35:00) Site Art Right Ra (04/08/201235:00) Temp Art 37.0 DegC *NA* (04/08/2012:35:00) Allens Art Positive (04/08/2012:) Mode Art See Note 4 (04/08/2012:35:) FiO2 Art 40.0 *NA* (04/08/2012:35:00) 1Result Comment: The eGFR is calculated using [...] values reflect the clinical guidelines of the [place] [employer]. 3Interpretive Data: Elevated results are in line with increasing severity of congestive heart failure. Minor elevations between 100 and 300 may be seen with Myocardial Ischemia, Sodium retaining drugs, and compensated/treated heart failure. 4Result Comment: mask HEMATOLOGY Most recent to oldest [Reference Range]: 1 2 WBC [3.7-10.4 K/CMM] 9.5 K/CMM (04/08/2012) RBC [4.20-5.40 M/CMM] 4.31 M/CMM (04/08/2012) Hgb [12.0-16.0 g/dL] 12.7 g/dL (04/08/2012) Hct [36.0-48.0 %] 39.3 % (04/08/2012) MCV [81.0-99.0 fL] 91.2 fL (04/08/2012) MCH [27.0-31.0 pg] 29.4 pg (04/08/2012) MCHC [32.0-36.0 g/dL] 32.3 g/dL (04/08/2012) RDW [11.5-14.5 %] 14.5 % (04/08/2012) Platelet [133-450 K/CMM] 310 K/CMM (04/08/2012) MPV [7.4-10.4 fL] 7.9 fL (04/08/2012) Segs [45.0-75.0 %] 53.0 % (04/08/2012) Lymphocytes [20.0-40.0 %] 32.8 % (04/08/2012) Monocytes [2.0-12.0 %] 6.1 % (04/08/2012 15:09:00) Eosinophils [0.0-4.0 %] 7.6 % *HI* (04/08/2012 15:09:00) Basophils [0.0-1.0 %] 0.5 % (04/08/2012 15:09:00) Segs-Bands # [1.5-8.1 K/CMM] 5.0 K/CMM (04/08/2012 15:09:00) Lymphocytes # [1.0-5.5 K/CMM] 3.1 K/CMM (04/08/2012 15:09:00) Monocytes # [0.0-0.8 K/CMM] 0.6 K/CMM (04/08/2012 15:09:00) Eosinophils # [0.0-0.5 K/CMM] 0.7 K/CMM *HI* (04/08/2012 15:09:00) Basophils # [0.0-0.2 K/CMM] 0.0 K/CMM (04/08/2012 15:09:00) PT [12.0-14.7 seconds] 12.4 seconds (04/08/2012 15:09:00) INR [0.85-1.17] 0.90 5 (04/08/2012 15:09:00) PTT [22.9-35.8 seconds] 28.0 seconds 6 (04/08/2012 15:09:00) 5Interpretive Data: RECOMMENDED RANGES FOR PROTIME INR: 2.0-3.0 for most medical and surgical thromboembolic states. 2.5-3.5 for artificial heart valves and recurrent embolism. INR SHOULD BE USED ONLY FOR PATIENTS ON STABLE ANTICOAGULANT THERAPY. 6Interpretive Data: Heparin Therapeutic Range: 57 - 92 Seconds Microbiology Reports PROCEDURE:Culture: Blood STATUS: In Progress BODY SITE: Arm R COLLECTED DATE/TIME: 04/08/2012 16:12:00 SOURCE: Blood FREE TEXT SOURCE: PRELIMINARY REPORTS Preliminary Report No Growth At 3 Days Preliminary Report No Growth At 2 Days Preliminary Report No Growth At 1 Day Preliminary Report No Growth; Holding PROCEDURE:Culture: Blood STATUS: In Progress BODY SITE: Arm L COLLECTED DATE/TIME: 04/08/2012 15:54:00 SOURCE: Blood FREE TEXT SOURCE: PRELIMINARY REPORTS Preliminary Report No Growth At 2 Days Preliminary Report No Growth At 1 Day Preliminary Report No Growth At 3 Days Preliminary Report No Growth; Holding Procedures Procedures Date Related Diagnosis Tubal ligation
--- OUTSIDE RECORDS SUMMARY | 2018-07-13 09:12 | XMS REPORT | Summary of Care ---
Author Organization Unknown Address Unknown Phone Unavailable Encounter LADY Lomax(FREDERIC) [id number] Date(s): 11/01/13 - 11/01/13 [facility] [id number] [address] Discharge Disposition: Elopement Physician Attending: Jim Duarte MD Reason for Visit SOB Vital Signs Most recent to 1 2 oldest [Reference Range]: Height 175.26 cm (11/01/13 6:06 PM) Temperature Oral 98.3 DegF [96.4-99.1 DegF] (11/01/13 6:06 PM) Systolic Blood 142 mmHg 176 mmHg Pressure [90-140 *HI* *HI* mmHg] (11/01/13 7:28 PM) (11/01/13 6:06 PM) Diastolic Blood 83 mmHg 96 mmHg Pressure [60-90 (11/01/13 7:28 PM) *HI* mmHg] (11/01/13 6:06 PM) Respiratory Rate 19 BRMIN 22 BRMIN [14-20 BRMIN] (11/01/13 7:28 PM) *HI* (11/01/13 6:06 PM) Peripheral Pulse 78 bpm 111 bpm Rate [60-100 bpm] (11/01/13 7:28 PM) *HI* (11/01/13 6:06 PM) Weight 85.909 kg (11/01/13 6:06 PM) Body Mass Index 27.97 m2 (11/01/13 6:06 PM) Problem List Condition Effective Dates Status Health Status Informant Asthma(Confirmed) Active COPD(Confirmed) Active High blood Active pressure(Confirmed) Allergies, Adverse Reactions, Alerts Substance Reaction Severity Status Rocephin Active Medications albuterol-ipratropium 2.5-0.5 mg inhalation solution 3 mL, Route: NEB, Drug Form: SOLN, Dosing Weight 85.909, kg, ONCE, STAT, Start d ate: 11/01/13 20:18:00, Stop date: 11/01/13 20:18:00 Notes: (Same as: Mone) Start Date: 11/01/13 Stop Date: 11/01/13 Status: Ordered predniSONE 60 mg, 3 tab, Route: PO, Drug form: TAB, ONCE, Dosing Weight 85.909, kg, Priorit y: STAT, Start date: 11/01/13 20:18:00, Stop date: 11/01/13 20:18:00 Notes: Take with food. Start Date: 11/01/13 Stop Date: 11/01/13 Status: Ordered Saline Flush 0.9% 10 mL, Route: IVP, Drug Form: INJ, Dosing Weight 85.909, kg, PRN, PRN Line Flush , Start date: 11/01/13 20:18:00, Duration: 30 day, Stop date: 12/01/13 20:17:00 Start Date: 11/01/13 Stop Date: 11/01/13 Status: Discontinued Medications Administered During Your Visit No data available for this section Immunizations Vaccine Date Refusal Reason influenza virus vaccine, inactivated 04/09/12 pneumococcal 23-valent vaccine 10/13/12 Social History Social History Type Response Smoking Status Current every day smoker, Type: Cigarettes, Exposure to Tobacco Smoke None, Cigarette Smoking Last 365 Days No, Reg Smoking Cessation Counseling No
--- OUTSIDE RECORDS SUMMARY | 2018-07-13 09:12 | XMS REPORT | CCD ---
Author Author Auto Generated Organization [facility] Address Unknown Phone Unavailable Care Team Providers Care Treating Engineer Helper Name Role Phone Ponce Angel CP Allergies, Adverse Reactions, Alerts Substance Reaction Status Rocephin Active Problem List Condition Effective Dates Status Asthma Active COPD Active High blood pressure Active Medications Medication Instructions Start Date End Date Status Xopenex 0.63 mg, Route: NEB, Drug form: 10/13/2012 10/13/2012 Deleted AERO, Q8H, Dosing Weight 81.477, kg, PRN as needed for wheezing, Start date: 10/13/12 10:50:00, Duration: 30 day, Stop date: 11/12/12 10:49:00 acetaminophen 650 mg, 2 tab, Route: PO, Drug 10/13/2012 10/13/2012 Discontinued form: TAB, Q6H, Dosing Weight 81.477, kg, PRN Pain, Start date: 10/13/12 4:38:00, Duration: 30 day, Stop date: 11/12/12 4:37:00 influenza virus 0.5 ml, Route: IM, Drug Form: INJ, 04/09/2012 04/09/2012 Completed vaccine, inactivated Start date: 04/09/12 9:00:00, Stop date: 04/09/12 9:00:00 Excedrin 2 tab, Route: PO, Dosing Weight 10/13/2012 10/13/2012 Deleted 81.477, kg, Q6H, Start date: 10/13/12 6:00:00, Duration: 30 day, Stop date: 11/12/12 0:00:00 Sodium Chloride 0.9% 500 mL, Rate: 500 ml/hr, Infuse 10/13/2012 10/13/2012 Completed (Bolus) IV 500 mL over: 1 hr, Route: IV, Dosing Weight 81.477 kg, Total Volume: 500, Priority: STAT, Start date: 10/13/12 4:36:00, Duration: 1 doses or times, Stop date: 10/13/12 5:35:00, Bolus Dose Bolus Dose albuterol 1.25 mg, 3 mL, Route: NEB, Drug 10/13/2012 10/13/2012 Discontinued form: SOLN, RQ8H, PRN Shortness of breath, Start date: 10/13/12 10:57:00, Duration: 30 day, Stop date: 11/12/12 10:56:00 Xopenex HFA 45 2 puff, INHALATION, Q4H, PRN, 1 10/13/2012 10/14/2012 Discontinued mcg/inh inhalation can, as needed for wheezing, aerosol with adapter Substitution Allowed, Maintenance Medrol Dosepak 4 mg See Instructions, as directed on 10/13/2012 10/14/2012 Completed Tablet package labeling, 1 pkg, Substitution Allowed as directed on package labeling Azithromycin 5 Day See Instructions, as directed on 10/13/2012 10/14/2012 Completed Dose Pack 250 mg package labeling, 1 pkg, oral tablet Substitution Allowed as directed on package labeling pantoprazole 40 mg 40 mg, 1 tab, PO, Before Dinner, 30 10/13/2012 10/14/2012 Completed oral enteric coated tab, Substitution Allowed, ECTAB tablet DuoNeb inhalation 3 ml, INHALATION, QID, 30 ea, 10/13/2012 Suspended solution Substitution Allowed, Maintenance, SOLN tuberculin purified 5 unit, 0.1 mL, Route: INTRADERM, 10/13/2012 10/13/2012 Completed protein derivative Drug form: INJ, ONCE, Dosing Weight 65.909, kg, Start date: 10/13/12 9:00:00, Stop date: 10/13/12 9:00:00 acetaminophen 650 mg, 2 tab, Route: PO, Drug 10/13/2012 10/13/2012 Discontinued form: TAB, Q4H, Dosing Weight 79.205, kg, PRN Headache, Start date: 10/13/12 0:08:00, Duration: 30 day, Stop date: 11/12/12 0:07:00 Sodium Chloride 0.9% 1,000 mL, Rate: 1,000 ml/hr, Infuse 10/12/2012 10/12/2012 Completed (Bolus) IV 1000 mL over: 1 hr, Route: IV, Dosing Weight 65.909 kg, Total Volume: 1,000, Priority: STAT, Start date: 10/12/12 22:26:00, Duration: 1 doses or times, Stop date: 10/12/12 23:25:00, Bolus Dose Bolus Dose magnesium sulfate 2 gm, Route: IVPB, Drug form: INJ, 10/12/2012 10/12/2012 Completed 2gm / NS 50ml ONCE, Dosing Weight 65.909, kg, (premixed) Start date: 10/12/12 20:25:00, Duration: 2 hr, Stop date: 10/12/12 20:25:00 Esgic 2 tab, Route: PO, Drug Form: TAB, 10/13/2012 10/13/2012 Discontinued Q6H, PRN Headache, Start date: 10/13/12 5:01:00, Duration: 30 day, Stop date: 11/12/12 5:00:00 albuterol-ipratropiu 9 mL, Route: NEB, Drug Form: SOLN, 10/12/2012 10/12/2012 Completed m 2.5-0.5 mg Dosing Weight 65.909, kg, ONCE, inhalation solution STAT, Start date: 10/12/12 20:25:00, Stop date: 10/12/12 20:25:00 Saline Flush 0.9% 5 mL, Route: IVP, Drug Form: INJ, 10/12/2012 10/12/2012 Discontinued Dosing Weight 65.909, kg, PRN, PRN Line Flush, Start date: 10/12/12 20:25:00, Duration: 30 day, Stop date: 11/11/12 20:24:00 methylPREDNISolone 125 mg, Route: IVP, ONCE, Dosing 10/12/2012 10/12/2012 Discontinued SODium SUCCinate Weight 65.909, kg, Priority: STAT, Start date: 10/12/12 20:25:00, Stop date: 10/12/12 20:25:00 magnesium sulfate 2 gm, Route: IVPB, ONCE, Dosing 10/12/2012 10/12/2012 Discontinued Weight 65.909, kg, Priority: STAT, Start date: 10/12/12 20:25:00, Stop date: 10/12/12 20:25:00 SoluMedrol 125 mg, Route: IVP, ONCE, Dosing 10/12/2012 10/12/2012 Completed Weight 65.909, kg, Priority: STAT, Start date: 10/12/12 20:24:00, Stop date: 10/12/12 20:24:00 Saline Flush 0.9% 5 ml, Route: IVP, Drug Form: INJ, 10/12/2012 10/13/2012 Discontinued Dosing Weight 65.909, kg, PRN, PRN Line Flush, Start date: 10/12/12 23:55:00, Duration: 30 day, Stop date: 11/11/12 23:54:00 Sodium Chloride 0.9% 500 mL, Rate: 75 ml/hr, Infuse 10/12/2012 10/13/2012 Discontinued IV 500 mL over: 6.7 hr, Route: IV, Dosing Weight 65.909 kg, Total Volume: 500, Start date: 10/12/12 23:55:00, Duration: 30 day, Stop date: 11/11/12 23:54:00 Protonix 40 mg, Route: IVP, Drug form: INJ, 10/12/2012 10/13/2012 Discontinued Before Dinner, Dosing Weight 65.909, kg, Priority: NOW, Start date: 10/12/12 23:55:00, Duration: 30 day, Stop date: 11/11/12 16:30:00 pneumococcal 0.5 ml, Route: IM, Drug Form: INJ, 10/13/2012 10/13/2012 Completed 23-valent vaccine Daily, Start date: 10/13/12 9:00:00, Duration: 1 doses or times, Stop date: 10/13/12 9:00:00 nitroglycerin 0.4 mg 0.4 mg, 1 tab, Route: SL, Drug 10/13/2012 10/13/2012 Discontinued sublingual tablet form: TAB, Q5Min, PRN Chest Pain, Start date: 10/13/12 0:04:00, Duration: 30 day, Stop date: 11/12/12 0:03:00 atropine 0.5 mg, 5 mL, Route: IVP, Drug 10/13/2012 10/13/2012 Discontinued form: INJ, PRN, PRN Bradycardia, Start date: 10/13/12 0:04:00, Duration: 30 day, Stop date: 11/12/12 0:03:00 albuterol-ipratropiu 3 mL, Route: NEB, Drug Form: SOLN, 10/12/2012 10/13/2012 Discontinued m 2.5-0.5 mg Dosing Weight 65.909, kg, RQ4H, PRN inhalation solution Wheezing, Start date: 10/12/12 23:55:00, Duration: 30 day, Stop date: 11/11/12 23:54:00 ceftriaxone + Sodium 1 gm, Route: IVPB, [id number], Dosing 10/13/2012 10/13/2012 Discontinued Chloride 0.9% IV 100 Weight 65.909, kg, Start date: mL 10/13/12 0:00:00, Duration: 30 day, Stop date: 11/11/12 0:00:00 methylPREDNISolone 40 mg, 1 mL, Route: IVP, Drug form: 10/13/2012 10/13/2012 Discontinued SODium SUCCinate INJ, Q8H, Dosing Weight 65.909, kg, Start date: 10/13/12 0:00:00, Duration: 48 hr, Stop date: 10/14/12 16:00:00 azithromycin + 500 mg, Route: IVPB, [id number], 10/13/2012 10/13/2012 Discontinued Sodium Chloride 0.9% Dosing Weight 65.909, kg, Start IV 250 mL date: 10/13/12 0:00:00, Duration: 30 day, Stop date: 11/11/12 0:00:00 predniSONE 60 mg, 3 tab, Route: PO, Drug form: 10/13/2012 10/13/2012 Discontinued TAB, Daily, Dosing Weight 65.909, kg, Start date: 10/13/12 9:00:00, Duration: 30 day, Stop date: 11/11/12 9:00:00 Protonix 40 mg, 1 tab, Route: PO, Drug form: 10/13/2012 10/13/2012 Discontinued ECTAB, Before Dinner, Start date: 10/13/12 16:30:00, Duration: 30 day, Stop date: 11/11/12 16:30:00 pneumococcal 0.5 ml, Route: IM, Drug Form: INJ, 10/13/2012 10/13/2012 Completed 23-valent vaccine Start date: 10/13/12 9:00:00, Stop date: 10/13/12 9:00:00 Immunizations Vaccine Date Status influenza virus vaccine, inactivated 04/09/2012 Auth (Verified) pneumococcal 23-valent vaccine 10/13/2012 Auth (Verified) tuberculin purified protein derivative 10/13/2012 Not Done Vital Signs Most recent to oldest [Reference Range]: 1 2 3 Height 175.26 cm (10/13/2012 00:03:00) Temperature Oral [96.4-99.1 DegF] 98.0 DegF (10/13/2012 12:00:00) 98.3 DegF (10/13/2012 08:00:00) 98.3 DegF (10/13/2012 04:00:00) Systolic Blood Pressure [90-140 mmHg] 130 mmHg (10/13/2012 12:00:00) 122 mmHg (10/13/2012 08:00:00) 108 mmHg (10/13/2012 04:00:00) Diastolic Blood Pressure [60-90 mmHg] 77 mmHg (10/13/2012 12:00:00) 75 mmHg (10/13/2012 08:00:00) 56 mmHg *LOW* (10/13/2012 04:00:00) Respiratory Rate [14-20 BRMIN] 18 BRMIN (10/13/2012 12:00:00) 12 BRMIN *LOW* (10/13/2012 08:35:00) 18 BRMIN (10/13/2012 08:00:00) Peripheral Pulse Rate [60-100 bpm] 86 bpm (10/13/2012 12:00:00) 78 bpm (10/13/2012 08:00:00) 88 bpm (10/13/2012 04:00:00) Weight 81.477 kg (10/13/2012 00:08:00) 79.205 kg (10/13/2012 00:03:00) 81.477 kg (10/12/2012 23:56:00) Results CHEMISTRY Most recent to oldest [Reference Range]: 1 Sodium Lvl [135-145 mEq/L] 146 mEq/L *HI* (10/12/2012 20:20:00) Potassium Lvl [3.5-5.1 mEq/L] 4.0 mEq/L (10/12/2012 20:20:00) Chloride Lvl [95-109 mEq/L] 108 mEq/L (10/12/2012:20:00) CO2 [24-32 mEq/L] 27 mEq/L (10/12/2012:20:00) AGAP [10.0-20.0 mEq/L] 15.0 mEq/L (10/12/2012:20:00) Creatinine Lvl [0.5-1.4 mg/dL] 0.9 mg/dL (10/12/2012:20:00) eGFR 86 mL/min/1.73m2 1 *NA* (10/12/2012:20:00) BUN [7-22 mg/dL] 11 mg/dL (10/12/2012:20:00) Glucose Lvl [70-99 mg/dL] 105 mg/dL 2 *HI* (10/12/2012:20:00) Calcium Lvl [8.5-10.5 mg/dL] 9.1 mg/dL (10/12/2012:20:00) Lactic Acid Lvl [0.5-2.2 mMol/L] 1.8 mMol/L (10/12/2012:30:00) Total CK [12-191 unit/L] 158 unit/L (10/12/2012:20:00) CK MB [0.5-3.6 ng/mL] 1.6 ng/mL (10/12/2012:20:00) CK MB Index [0.0-2.5] 1.0 (10/12/2012:20:00) Troponin-I [0.00-0.40 ng/mL] <0.02 ng/mL (10/12/2012:20:00) pH Oli [7.28-7.42] 7.27 *LOW* (10/12/2012:30:00) pCO2 Oli [38-52 mmHg] 24 mmHg *LOW* (10/12/2012:30:00) pO2 Oli [20-49 mmHg] 35 mmHg (10/12/2012 21:30:00) HCO3 Oli [22-26 mMol/L] 11 mMol/L *LOW* (10/12/2012 21:30:00) BE Oli [-2-2 mMol/L] -14 mMol/L *LOW* (10/12/2012:30:00) O2 Sat Oli [40.0-70.0 %] 57.3 % (10/12/2012:30:00) Allens Oli N/A (10/12/2012:30:00) Mode Oli Bipap (10/12/2012:30:00) Rate Oli 10 *NA* (10/12/2012:30:00) FiO2 Oli 40.0 *NA* (10/12/2012:30:00) PIP/MAP Oli 10 *NA* (10/12/2012:30:00) Peep Oli 5.0 *NA* (10/12/2012:30:00) Temp Oli 37.0 DegC *NA* (10/12/2012:30:00) 1Result Comment: The eGFR is calculated using [...] values reflect the clinical guidelines of the [employer] [employer]. HEMATOLOGY Most recent to oldest [Reference Range]: 1 WBC [3.7-10.4 K/CMM] 13.5 K/CMM *HI* (10/12/2012 20:20:00) RBC [4.20-5.40 M/CMM] 4.23 M/CMM (10/12/2012 20:20:00) Hgb [12.0-16.0 g/dL] 12.1 g/dL (10/12/2012 20:20:00) Hct [36.0-48.0 %] 38.1 % (10/12/2012 20:20:00) MCV [81.0-99.0 fL] 90.0 fL (10/12/2012 20:20:00) MCH [27.0-31.0 pg] 28.5 pg (10/12/2012 20:20:00) MCHC [32.0-36.0 g/dL] 31.6 g/dL *LOW* (10/12/2012 20:20:00) RDW [11.5-14.5 %] 14.5 % (10/12/2012 20:20:00) Platelet [133-450 K/CMM] 342 K/CMM (10/12/2012 20:20:00) MPV [7.4-10.4 fL] 8.3 fL (10/12/2012 20:20:00) Segs [45.0-75.0 %] 45.5 % (10/12/2012 20:20:00) Lymphocytes [20.0-40.0 %] 37.2 % (10/12/2012 20:20:00) Monocytes [2.0-12.0 %] 6.2 % (10/12/2012 20:20:00) Eosinophils [0.0-4.0 %] 10.6 % *HI* (10/12/2012 20:20:00) Basophils [0.0-1.0 %] 0.5 % (10/12/2012 20:20:00) Segs-Bands # [1.5-8.1 K/CMM] 6.1 K/CMM (10/12/2012 20:20:00) Lymphocytes # [1.0-5.5 K/CMM] 5.0 K/CMM (10/12/2012 20:20:00) Monocytes # [0.0-0.8 K/CMM] 0.8 K/CMM (10/12/2012 20:20:00) Eosinophils # [0.0-0.5 K/CMM] 1.4 K/CMM *HI* (10/12/2012 20:20:00) Basophils # [0.0-0.2 K/CMM] 0.1 K/CMM (10/12/2012 20:20:00) D-Dimer 0.26 ug/mL FEU 3 *NA* (10/12/2012 20:20:00) 3Interpretive Data: In DIC, quantitative D-Dimer is generally greater than 0.66 ug/mL FEU. Values of quantitative D-Dimer less than 0.40 ug/mL FEU have been reported to be associated with a low probability of deep vein thrombosis/pulmonary embolism. This test alone should not be used to rule out DVT/PE. Microbiology Reports PROCEDURE:Culture: Blood STATUS: In Progress BODY SITE: Hand R COLLECTED DATE/TIME: 10/12/2012 22:50:00 SOURCE: Blood FREE TEXT SOURCE: PRELIMINARY REPORTS Preliminary Report No Growth At 1 Day Preliminary Report No Growth At 2 Days Preliminary Report No Growth; Holding PROCEDURE:Culture: Blood STATUS: Auth (Verified) BODY SITE: LAC COLLECTED DATE/TIME: 10/12/2012 22:30:00 SOURCE: Blood FREE TEXT SOURCE: FINAL REPORTS Final Report Aerobic Bottle: Alpha Streptococcus, Not S.pneumoniae or Enterococcus . Critical Results Called To: Brandyn [facility] at [facility] At: 10/13/2012 22:51:46 Called By: CHRISSY Read Back Ok PRELIMINARY REPORTS Preliminary Report Gram Stain Of Blood Culture Medium: Aerobic Bottle: Gram Positive Cocci In Chains Subculture In Progress . Critical Results Called To: Brandyn Waters at [facility] At: 10/13/2012 22:51:46 Called By: CHRISSY Read Back Ok Preliminary Report No Growth; Holding Preliminary Report No Growth; Holding Culture In Progress
--- OUTSIDE RECORDS SUMMARY | 2018-07-13 09:12 | XMS REPORT | CCD ---
Author Author Auto Generated Organization [facility] Address Unknown Phone Unavailable Care Team Providers Care Stretching Machine Operator Name Role Phone Jack Monte Severo YOLANDA Unavailable Allergies, Adverse Reactions, Alerts Substance Reaction Status NKDA Active Medications Medication Instructions Start Date End Date Status predniSONE 60 mg, 3 tab, Route: PO, Drug form: 12/10/2011 12/10/2011 Completed TAB, ONCE, Dosing Weight 68.182, kg, Priority: STAT, Start date: 12/10/11 1:19:00, Stop date: 12/10/11 1:19:00 albuterol 0.083% 2.5 mg, 3.01 mL, Route: INHALATION, 12/10/2011 12/10/2011 Completed inhalation solution Drug form: SOLN, ONCE, Dosing Weight 68.182, kg, Start date: 12/10/11 0:20:00, Stop date: 12/10/11 0:20:00 albuterol-ipratropiu 3 mL, Route: INHALATION, Drug Form: 12/10/2011 12/10/2011 Completed m 2.5-0.5 mg SOLN, Dosing Weight 68.182, kg, inhalation solution ONCE, Start date: 12/10/11 0:20:00, Stop date: 12/10/11 0:20:00 albuterol 0.083% 2.5 mg, Route: INHALATION, ONCE, 12/10/2011 12/10/2011 Completed inhalation solution Dosing Weight 68.182, kg, Start date: 12/10/11 0:40:00, Stop date: 12/10/11 0:40:00 cyproheptadine 4 mg 4 mg, 1 tab, PO, TID, PRN, 30 tab, 12/10/2011 12/20/2011 Ordered oral tablet as needed for allergy symptoms, Substitution Allowed, TAB predniSONE 20 mg 60 mg, 3 tab, PO, Daily, Take 3 12/10/2011 12/15/2011 Ordered oral tablet tablets for 60 mg dose, 15 tab, Substitution Allowed Take 3 tablets for 60 mg dose albuterol 90 mcg/inh 1 puff, INHALATION, QID, PRN, 1 ea, 12/10/2011 Ordered inhalation aerosol wheezing, Substitution Allowed, Maintenance amoxicillin 875 mg 875 mg, 1 tab, PO, BID, 20 tab, 12/10/2011 12/20/2011 Ordered oral tablet Substitution Allowed, TAB Vital Signs Most recent to oldest [Reference Range]: 1 Height 175.26 cm (12/10/2011 00:01:00) Weight 68.182 kg (12/10/2011 00:01:00)
--- OUTSIDE RECORDS SUMMARY | 2018-07-13 09:12 | XMS REPORT | CCD ---
Author Author Auto Generated Organization [facility] Address Unknown Phone Unavailable Care Team Providers Care Ammonia Technician Name Role Phone Chuck Chilel CP Allergies, Adverse Reactions, Alerts Substance Reaction Status NKDA Rocephin Active Problem List Condition Effective Dates Status Asthma Active COPD Active High blood pressure Active Medications Medication Instructions Start Date End Date Status Norvasc 10 mg oral 10 mg, 1 tab, PO, Daily, 30 tab, 07/15/2012 Ordered tablet Substitution Allowed, TAB influenza virus 0.5 ml, Route: IM, Drug Form: INJ, 04/09/2012 04/09/2012 Completed vaccine, inactivated Start date: 04/09/12 9:00:00, Stop date: 04/09/12 9:00:00 albuterol 90 mcg/inh 2 puff, INHALATION, Q6H, 1 can, 07/15/2012 Ordered inhalation aerosol Substitution Allowed, Maintenance albuterol 0.083% 2.49 mg, 3 mL, NEB, Q6H, one box of 07/15/2012 Ordered inhalation solution unit dose vials, 1 box, Substitution Allowed one box of unit dose vials Zithromax Z-Joe 250 250 mg, 1 tab, PO, Daily, TAKE 2 07/15/2012 07/20/2012 Ordered mg oral tablet TABLETS ON DAY 1; TAKE 1 TABLET ON DAYS 2 - 5, 6 tab, Substitution Allowed TAKE 2 TABLETS ON DAY 1; TAKE 1 TABLET ON DAYS 2 - 5 predniSONE 20 mg 40 mg po x4day,then 20 mg po x4da, 07/15/2012 Ordered oral tablet PO, Daily, 12 tab, Substitution Allowed NIFEdipine 10 mg, 1 cap, Route: PO, Drug form: 07/15/2012 07/15/2012 Completed CAP, ONCE, Dosing Weight 79.545, kg, Start date: 07/15/12 9:47:00, Stop date: 05/11/13 9:47:00 predniSONE 60 mg, 3 tab, Route: PO, Drug form: 07/15/2012 07/15/2012 Completed TAB, ONCE, Dosing Weight 79.545, kg, Priority: STAT, Start date: 07/15/12 9:46:00, Stop date: 07/15/12 9:46:00 DuoNeb inhalation 3 ml, Route: INHALATION, Drug Form: 07/15/2012 07/15/2012 Completed solution SOLN, Dosing Weight 79.545, kg, ONCE, PRN Respiratory Protocol, Start date: 07/15/12 9:46:00 DuoNeb inhalation 3 ml, Route: INHALATION, Drug Form: 07/15/2012 07/15/2012 Completed solution SOLN, Dosing Weight 79.545, kg, ONCE, PRN Respiratory Protocol, Start date: 07/15/12 9:46:00 DuoNeb inhalation 3 ml, Route: INHALATION, Drug Form: 07/15/2012 07/15/2012 Completed solution SOLN, Dosing Weight 79.545, kg, ONCE, PRN Respiratory Protocol, Start date: 07/15/12 9:46:00 Immunizations Vaccine Date Status influenza virus vaccine, inactivated 04/09/2012 Auth (Verified) Vital Signs Most recent to oldest [Reference Range]: 1 Height 175.26 cm (07/15/2012 08:51:00) Weight 79.545 kg (07/15/2012 08:51:00) Procedures Procedures Date Related Diagnosis D&C - Dilatation and curettage
--- OUTSIDE RECORDS SUMMARY | 2018-07-13 09:12 | XMS REPORT | CCD ---
Author Author Auto Generated Organization [facility] Address Unknown Phone Unavailable Care Team Providers Care Named Account Executive Name Role Phone Chuck Cardoso CP Allergies, Adverse Reactions, Alerts Substance Reaction Status NKDA Active Problem List Condition Effective Dates Status Asthma Resolved High blood pressure Resolved Medications Medication Instructions Start Date End Date Status albuterol CFC free 2 puff, INHALATION, Q4H, PRN, 9 gm, 03/03/2012 Ordered 90 mcg/inh for wheezing, Substitution Allowed, inhalation aerosol Maintenance, AERO with adapter predniSONE 20 mg 60 mg, 3 tab, PO, Daily, Take 3 03/03/2012 03/07/2012 Ordered oral tablet tablets for 60 mg dose, 12 tab, Substitution Allowed Take 3 tablets for 60 mg dose albuterol-ipratropiu 3 ml, Route: NEB, Drug Form: SOLN, 03/03/2012 03/03/2012 Pending m Dosing Weight 72.727, kg, Q15Min, Complete STAT, Start date: 03/03/12 2:16:00, Duration: 2 doses or times, Stop date: 03/03/12 2:31:00 predniSONE 60 mg, 3 tab, Route: PO, Drug form: 03/03/2012 03/03/2012 Completed TAB, ONCE, Dosing Weight 72.727, kg, Priority: STAT, Start date: 03/03/12 2:16:00, Stop date: 03/03/12 2:16:00 Saline Flush 0.9% 5 ml, Route: IVP, Drug Form: INJ, 03/03/2012 03/03/2012 Discontinued Dosing Weight 72.727, kg, PRN, PRN Line Flush, Start date: 03/03/12 2:16:00, Duration: 30 day, Stop date: 04/02/12 2:15:00 DuoNeb inhalation 3 ml, Route: INHALATION, Drug Form: 03/03/2012 03/03/2012 Discontinued solution SOLN, Dosing Weight 72.727, kg, PRN, PRN Respiratory Protocol, Start date: 03/03/12 2:05:00, Duration: 30 day, Stop date: 04/02/12 2:04:00 Vital Signs Most recent to oldest [Reference Range]: 1 Weight 72.727 kg (03/03/2012 02:02:00) Results CHEMISTRY Most recent to oldest [Reference Range]: 1 Sodium Lvl [135-145 mEq/L] 144 mEq/L (03/03/2012 02:16:00) Potassium Lvl [3.5-5.1 mEq/L] 3.8 mEq/L (03/03/2012 02:16:00) Chloride Lvl [95-109 mEq/L] 108 mEq/L (03/03/2012 02:16:00) CO2 [24-32 mEq/L] 29 mEq/L (03/03/2012 02:16:00) AGAP [10.0-20.0 mEq/L] 10.8 mEq/L (03/03/2012 02:16:00) Creatinine Lvl [0.5-1.4 mg/dL] 0.8 mg/dL (03/03/2012 02:16:00) eGFR 99 mL/min/1.73m2 1 *NA* (03/03/2012 02:16:00) BUN [7-22 mg/dL] 10 mg/dL (03/03/2012 02:16:00) Glucose Lvl [70-99 mg/dL] 96 mg/dL 2 (03/03/2012 02:16:00) Calcium Lvl [8.5-10.5 mg/dL] 8.9 mg/dL (03/03/2012 02:16:00) Lactic Acid Lvl [0.5-2.2 mMol/L] 0.6 mMol/L (03/03/2012 02:16:00) 1Result Comment: The eGFR is calculated using [...] values reflect the clinical guidelines of the [place] [employer]. HEMATOLOGY Most recent to oldest [Reference Range]: 1 WBC [3.7-10.4 K/CMM] 11.9 K/CMM *HI* (03/03/2012 02:16:00) RBC [4.20-5.40 M/CMM] 4.43 M/CMM (03/03/2012 02:16:00) Hgb [12.0-16.0 g/dL] 13.2 g/dL (03/03/2012 02:16:00) Hct [36.0-48.0 %] 40.3 % (03/03/2012 02:16:00) MCV [81.0-99.0 fL] 91.1 fL (03/03/2012 02:16:00) MCH [27.0-31.0 pg] 29.8 pg (03/03/2012 02:16:00) MCHC [32.0-36.0 g/dL] 32.7 g/dL (03/03/2012 02:16:00) RDW [11.5-14.5 %] 14.8 % *HI* (03/03/2012 02:16:00) Platelet [133-450 K/CMM] 331 K/CMM (03/03/2012 02:16:00) MPV [7.4-10.4 fL] 8.2 fL (03/03/2012 02:16:00) Segs [45.0-75.0 %] 39.7 % *LOW* (03/03/2012 02:16:00) Lymphocytes [20.0-40.0 %] 46.5 % *HI* (03/03/2012 02:16:00) Monocytes [2.0-12.0 %] 6.2 % (03/03/2012 02:16:00) Eosinophils [0.0-4.0 %] 7.2 % *HI* (03/03/2012 02:16:00) Basophils [0.0-1.0 %] 0.4 % (03/03/2012 02:16:00) Segs-Bands # [1.5-8.1 K/CMM] 4.7 K/CMM (03/03/2012 02:16:00) Lymphocytes # [1.0-5.5 K/CMM] 5.5 K/CMM (03/03/2012 02:16:00) Monocytes # [0.0-0.8 K/CMM] 0.7 K/CMM (03/03/2012 02:16:00) Eosinophils # [0.0-0.5 K/CMM] 0.9 K/CMM *HI* (03/03/2012 02:16:00) Basophils # [0.0-0.2 K/CMM] 0.1 K/CMM (03/03/2012 02:16:00) Microbiology Reports PROCEDURE:Culture: Blood STATUS: In Progress BODY SITE: COLLECTED DATE/TIME: 03/03/2012 02:46:00 SOURCE: Blood FREE TEXT SOURCE: PRELIMINARY REPORTS Preliminary Report No Growth At 1 Day Preliminary Report No Growth; Holding PROCEDURE:Culture: Blood STATUS: In Progress BODY SITE: COLLECTED DATE/TIME: 03/03/2012 02:17:00 SOURCE: Blood FREE TEXT SOURCE: PRELIMINARY REPORTS Preliminary Report No Growth; Holding Preliminary Report No Growth At 1 Day
--- OUTSIDE RECORDS SUMMARY | 2018-07-13 09:13 | XMS REPORT | Summary of Care ---
Author Organization Unknown Address Unknown Phone Unavailable Encounter LADY Lomax(FREDERIC) [id number] Date(s): 12/01/13 - 12/02/13 [facility] [address] [place] [address] - [facility] Discharge Diagnosis: Asthma exacerbation in COPD Discharge Disposition: Home Physician Attending: Austen Mishra MD Reason for Visit SOB Vital Signs 1 2 3 Most recent to oldest [Reference Range]: 98.0 DegF (12/01/13 7:38 PM) Temperature Oral [96.4-99.1 DegF] 142 mmHg *HI* (12/01/13 11:59 PM) 143 mmHg *HI* (12/01/13 7:38 PM) Systolic Blood Pressure [90-140 mmHg] 54 mmHg *LOW* (12/01/13 11:59 PM) 89 mmHg (12/01/13 7:38 PM) Diastolic Blood Pressure [60-90 mmHg] 30 BRMIN *HI* (12/01/13 11:59 PM) 20 BRMIN (12/01/13 8:19 PM) 32 BRMIN *HI* (12/01/13 7:38 PM) Respiratory Rate [14-20 BRMIN] 112 bpm *HI* (12/01/13 11:59 PM) 121 bpm *HI* (12/01/13 7:38 PM) Peripheral Pulse Rate [60-100 bpm] 77.273 kg (12/01/13 7:38 PM) Weight Problem List Condition Effective Dates Status Health Status Informant Asthma(Confirmed) Active COPD(Confirmed) Active High blood Active pressure(Confirmed) Allergies, Adverse Reactions, Alerts Substance Reaction Severity Status Rocephin Active Medications albuterol CFC free 90 mcg/inh inhalation aerosol with adapter 1 puff, INHALATION, Q4H, for wheezing, # 2 ea, 0 Refill(s) Start Date: 12/01/13 Status: Ordered albuterol-ipratropium 2.5-0.5 mg inhalation solution 3 mL, Route: NEB, Drug Form: SOLN, Dosing Weight 77.273, kg, ONCE, STAT, Start d ate: 12/01/13 19:55:00, Stop date: 12/01/13 19:55:00 Start Date: 12/01/13 Stop Date: 12/01/13 Status: Completed DuoNeb inhalation solution 3 ml, Route: INHALATION, Drug Form: SOLN, Dosing Weight 77.273, kg, PRN, PRN Res piratory Protocol, Start date: 12/01/13 21:29:00, Duration: 30 day, Stop date: 1 21:28:00 Notes: (Same as: Duoneb) Start Date: 12/01/13 Stop Date: 12/02/13 Status: Discontinued magnesium sulfate 2 gm, 50 mL, Route: IVPB, Drug form: INJ, ONCE, Dosing Weight 77.273, kg, Priori ty: STAT, Start date: 12/01/13 19:55:00, Stop date: 12/01/13 19:55:00 Start Date: 12/01/13 Stop Date: 12/01/13 Status: Completed NS (Bolus) IV 1,000 mL, 1,000 ml/hr, Infuse Over: 1 hr, Route: IV, 1,000, Drug form: INJ, ONCE , Priority: STAT, Dosing Weight 77.273 kg, Start date: 12/01/13 19:55:00, Durati on: 1 doses or times, Stop date: 12/01/13 19:55:00 Start Date: 12/01/13 Stop Date: 12/01/13 Status: Completed predniSONE 60 mg, 3 tab, Route: PO, Drug form: TAB, ONCE, Dosing Weight 77.273, kg, Priorit y: STAT, Start date: 12/01/13 19:55:00, Stop date: 12/01/13 19:55:00 Notes: Take with food. Start Date: 12/01/13 Stop Date: 12/01/13 Status: Completed predniSONE 20 mg oral tablet See Instructions, 2 tab PO Daily for three days then one tab daily for two, # 8 tab, 0 Refill(s) Special Instructions: 2 tab PO Daily for three days then one tab daily for two Start Date: 12/01/13 Status: Ordered Saline Flush 0.9% 10 mL, Route: IVP, Drug Form: INJ, Dosing Weight 77.273, kg, PRN, PRN Line Flush , Start date: 12/01/13 19:55:00, Duration: 30 day, Stop date: 12/31/13 19:54:00 Notes: (Same as: BD Posiflush) Start Date: 12/01/13 Stop Date: 12/02/13 Status: Discontinued Results ELECTROLYTES Most recent to 1 oldest [Reference Range]: Sodium Lvl [135-145 141 mEq/L mEq/L] (12/01/13 7:00 PM) Potassium Lvl 3.3 mEq/L [3.5-5.1 mEq/L] *LOW* (12/01/13 7:00 PM) Chloride Lvl [95-109 107 mEq/L mEq/L] (12/01/13 7:00 PM) CO2 [24-32 mEq/L] 27 mEq/L (12/01/13 7:00 PM) AGAP [10.0-20.0 10.3 mEq/L mEq/L] (12/01/13 7:00 PM) CHEM PANEL Most recent to 1 oldest [Reference Range]: Creatinine Lvl 1.1 mg/dL [0.5-1.4 mg/dL] (12/01/13 7:00 PM) eGFR 67 mL/min/1.73m2 1 *NA* (12/01/13 7:00 PM) BUN [7-22 mg/dL] 11 mg/dL (12/01/13 7:00 PM) Glucose Lvl [70-99 127 mg/dL 2 mg/dL] *HI* (12/01/13 7:00 PM) Calcium Lvl 9.0 mg/dL [8.5-10.5 mg/dL] (12/01/13 7:00 PM) 1Result Comment: The eGFR is calculated using [...] values reflect the clinical guidelines of the [place] [employer]. HEMATOLOGY Most recent to 1 oldest [Reference Range]: WBC [3.7-10.4 K/CMM] 10.8 K/CMM *HI* (12/01/13 7:00 PM) RBC [4.20-5.40 4.22 M/CMM M/CMM] (12/01/13 7:00 PM) Hgb [12.0-16.0 g/dL] 12.3 g/dL (12/01/13 7:00 PM) Hct [36.0-48.0 %] 37.9 % (12/01/13 7:00 PM) MCV [80.0-98.0 fL] 89.8 fL (12/01/13 7:00 PM) MCH [27.0-31.0 pg] 29.0 pg (12/01/13:00 PM) MCHC [32.0-36.0 32.3 g/dL g/dL] (12/01/13 7:00 PM) RDW [11.5-14.5 %] 14.6 % *HI* (12/01/13 7:00 PM) Platelet [133-450 326 K/CMM K/CMM] (12/01/13 7:00 PM) MPV [7.4-10.4 fL] 8.1 fL (12/01/13 7:00 PM) Segs [45.0-75.0 %] 43.0 % *LOW* (12/01/13 7:00 PM) Lymphocytes 42.4 % [20.0-40.0 %] *HI* (12/01/13 7:00 PM) Monocytes [2.0-12.0 6.1 % %] (12/01/13 7:00 PM) Eosinophils [0.0-4.0 7.8 % %] *HI* (12/01/13 7:00 PM) Basophils [0.0-1.0 0.7 % %] (12/01/13 7:00 PM) Segs-Bands # 4.7 K/CMM [1.5-8.1 K/CMM] (12/01/13 7:00 PM) Lymphocytes # 4.6 K/CMM [1.0-5.5 K/CMM] (12/01/13 7:00 PM) Monocytes # [0.0-0.8 0.7 K/CMM K/CMM] (12/01/13 7:00 PM) Eosinophils # 0.8 K/CMM [0.0-0.5 K/CMM] *HI* (12/01/13 7:00 PM) Basophils # [0.0-0.2 0.1 K/CMM K/CMM] (12/01/13 7:00 PM) Medications Administered During Your Visit No data available for this section Immunizations Vaccine Date Refusal Reason influenza virus vaccine, inactivated 04/09/12 pneumococcal 23-valent vaccine 10/13/12 Social History Social History Type Response Smoking Status Current every day smoker, Type: Cigarettes, Exposure to Tobacco Smoke None, Cigarette Smoking Last 365 Days No, Reg Smoking Cessation Counseling No
--- OUTSIDE RECORDS SUMMARY | 2018-07-13 09:13 | XMS REPORT | Summary of Care ---
Author Author [facility] Organization [facility] Address Unknown Phone Unavailable Encounter LADY Lomax(FREDERIC) [id number] Date(s): 01/03/15 - 01/03/15 [facility] [address] [place] [address]- Discharge Diagnosis: Discharge Diagnosis: Chronic obstructive pulmonary disease, unspecified Discharge Disposition: Home Attending Physician: Abelardo Alvarez DO Vital Signs 1 2 3 Most recent to oldest [Reference Range]: 175.26 cm (01/03/15 1:47 PM) Height 98.1 DegF (01/03/15 4:49 PM) 98 DegF (01/03/15 2:59 PM) 98.1 DegF (01/03/15 1:47 PM) Temperature Oral [96.4-99.1 DegF] 143/82 mmHg *HI* (01/03/15 4:49 PM) 134/78 mmHg (01/03/15 2:59 PM) 149/104 mmHg *HI* (01/03/15 1:47 PM) Blood Pressure [90-140/60-90 mmHg] 18 BRMIN (01/03/15 4:49 PM) 18 BRMIN (01/03/15 3:04 PM) 15 BRMIN (01/03/15 2:59 PM) Respiratory Rate [14-20 BRMIN] 95 bpm (01/03/15 1:47 PM) Peripheral Pulse Rate [60-100 bpm] 84.091 kg (01/03/15 1:47 PM) Weight 27.38 m2 (01/03/15 1:47 PM) Body Mass Index Problem List Condition Effective Dates Status Health Status Informant Asthma(Confirmed) Active COPD(Confirmed) Active High blood Active pressure(Confirmed) Allergies, Adverse Reactions, Alerts Substance Reaction Severity Status Rocephin Active Medications albuterol 0.083% inhalation solution 7.47 mg, Route: NEB, Drug form: SOLN, ONCE, Dosing Weight 84.091, kg, Priority: STAT, Start date: 01/03/15 15:17:00, Stop date: 01/03/15 15:17:00 Start Date: 01/03/15 Stop Date: 01/03/15 Status: Completed albuterol 90 mcg/inh inhalation aerosol 2 puff, INHALATION, Q4H, PRN for wheezing, # 9 gm, 0 Refill(s) Start Date: 01/03/15 Status: Ordered DuoNeb inhalation solution 3 ml, Route: NEB, Drug Form: SOLN, Dosing Weight 84.091, kg, PRN, PRN Respirator y Protocol, Start date: 01/03/15 13:52:00, Duration: 30 day, Stop date: 02/02/15 12:51:00 Notes: (Same as: Duoneb) Start Date: 01/03/15 Stop Date: 01/04/15 Status: Discontinued DuoNeb inhalation solution 3 ml, Route: NEB, Drug Form: SOLN, Dosing Weight 84.091, kg, PRN, PRN Respirator y Protocol, Start date: 01/03/15 13:52:00, Duration: 30 day, Stop date: 02/02/15 12:51:00 Notes: (Same as: Duoneb) Start Date: 01/03/15 Stop Date: 01/04/15 Status: Discontinued DuoNeb inhalation solution 3 ml, Route: NEB, Drug Form: SOLN, Dosing Weight 84.091, kg, PRN, PRN Respirator y Protocol, Start date: 01/03/15 13:51:00, Duration: 30 day, Stop date: 02/02/15 12:50:00 Notes: (Same as: Duoneb) Start Date: 01/03/15 Stop Date: 01/04/15 Status: Discontinued methylPREDNISolone SODium SUCCinate 125 mg, Route: IVP, ONCE, Dosing Weight 84.091, kg, Priority: STAT, Start date: 01/03/15 15:17:00, Stop date: 01/03/15 15:17:00 Start Date: 01/03/15 Stop Date: 01/03/15 Status: Completed predniSONE 20 mg oral tablet 40 mg=2 tab, PO, Daily, X 5 day, # 10 tab, 0 Refill(s) Start Date: 01/03/15 Stop Date: 01/08/15 Status: Ordered Saline Flush 0.9% 10 mL, Route: IVP, Drug Form: INJ, Dosing Weight 84.091, kg, PRN, PRN Line Flush , Start date: 01/03/15 13:51:00, Duration: 30 day, Stop date: 02/02/15 12:50:00 Notes: (Same as: BD Posiflush) Start Date: 01/03/15 Stop Date: 01/04/15 Status: Discontinued Results ELECTROLYTES Most recent to 1 oldest [Reference Range]: Sodium Lvl [135-145 142 mEq/L mEq/L] (01/03/15 1:52 PM) Potassium Lvl 3.8 mEq/L [3.5-5.1 mEq/L] (01/03/15 1:52 PM) Chloride Lvl [95-109 110 mEq/L mEq/L] *HI* (01/03/15 1:52 PM) CO2 [24-32 mEq/L] 24 mEq/L (01/03/15 1:52 PM) AGAP [10.0-20.0 11.8 mEq/L mEq/L] (01/03/15 1:52 PM) CHEM PANEL Most recent to 1 oldest [Reference Range]: Creatinine Lvl 1.1 mg/dL [0.5-1.4 mg/dL] (01/03/15 1:52 PM) eGFR 67 mL/min/1.73m2 1 *NA* (01/03/15 1:52 PM) BUN [7-22 mg/dL] 14 mg/dL (01/03/15 1:52 PM) B/C Ratio [6-25] 13 (01/03/15 1:52 PM) Glucose Lvl [70-99 102 mg/dL mg/dL] *HI* (01/03/15 1:52 PM) Total Protein 7.5 g/dL [6.4-8.4 g/dL] (01/03/15 1:52 PM) Albumin Lvl [3.5-5.0 3.8 g/dL g/dL] (01/03/15 1:52 PM) Globulin [2.0-4.0 3.7 g/dL g/dL] (01/03/15 1:52 PM) A/G Ratio [0.7-1.6] 1.0 (01/03/15 1:52 PM) Calcium Lvl 8.8 mg/dL [8.5-10.5 mg/dL] (01/03/15 1:52 PM) ALT [0-65 unit/L] 23 unit/L (01/03/15 1:52 PM) AST [0-37 unit/L] 23 unit/L (01/03/15 1:52 PM) Alk Phos [39-136 78 unit/L unit/L] (01/03/15 1:52 PM) Bili Total [0.2-1.3 0.1 mg/dL mg/dL] *LOW* (01/03/15 1:52 PM) 1Result Comment: The eGFR is calculated [...] 1 oldest [Reference Range]: Total CK [12-191 161 unit/L unit/L] (01/03/15 1:52 PM) CK MB [0.5-3.6 1.7 ng/mL ng/mL] (01/03/15 1:52 PM) CK MB Index 1.1 [0.0-2.5] (01/03/15 1:52 PM) Troponin-I <0.02 ng/mL [0.00-0.40 ng/mL] (01/03/15 1:52 PM) BNP [<=100 pg/mL] 10 pg/mL (01/03/15 1:52 PM) HEMATOLOGY Most recent to 1 oldest [Reference Range]: WBC [3.7-10.4 K/CMM] 10.9 K/CMM *HI* (01/03/15 1:52 PM) RBC [4.20-5.40 4.40 M/CMM M/CMM] (01/03/15 1:52 PM) Hgb [12.0-16.0 g/dL] 12.6 g/dL (01/03/15 1:52 PM) Hct [36.0-48.0 %] 39.4 % (01/03/15 1:52 PM) MCV [80.0-98.0 fL] 89.7 fL (01/03/15 1:52 PM) MCH [27.0-31.0 pg] 28.7 pg (01/03/15 1:52 PM) MCHC [32.0-36.0 32.0 g/dL g/dL] (01/03/15 1:52 PM) RDW [11.5-14.5 %] 15.0 % *HI* (01/03/15 1:52 PM) Platelet [133-450 303 K/CMM K/CMM] (01/03/15 1:52 PM) MPV [7.4-10.4 fL] 8.3 fL (01/03/15 1:52 PM) Segs [45.0-75.0 %] 41.6 % *LOW* (01/03/15 1:52 PM) Lymphocytes 45.2 % [20.0-40.0 %] *HI* (01/03/15 1:52 PM) Monocytes [2.0-12.0 6.8 % %] (01/03/15 1:52 PM) Eosinophils [0.0-4.0 5.5 % %] *HI* (01/03/15 1:52 PM) Basophils [0.0-1.0 0.9 % %] (01/03/15 1:52 PM) Segs-Bands # 4.5 K/CMM [1.5-8.1 K/CMM] (01/03/15 1:52 PM) Lymphocytes # 4.9 K/CMM [1.0-5.5 K/CMM] (01/03/15 1:52 PM) Monocytes # [0.0-0.8 0.7 K/CMM K/CMM] (01/03/15 1:52 PM) Eosinophils # 0.6 K/CMM [0.0-0.5 K/CMM] *HI* (01/03/15 1:52 PM) Basophils # [0.0-0.2 0.1 K/CMM K/CMM] (01/03/15 1:52 PM) PT [12.0-14.7 12.8 seconds seconds] (01/03/15 1:52 PM) INR [0.85-1.17] 0.93 (01/03/15 1:52 PM) PTT [22.9-35.8 27.2 seconds seconds] (01/03/15 1:52 PM) Immunizations Vaccine Date Refusal Reason influenza virus vaccine, inactivated 04/09/12 pneumococcal 23-valent vaccine 10/13/12 Procedures Procedure Date Related Diagnosis Body Site D&C - Dilatation and curettage Tubal ligation Social History Social History Type Response Smoking Status Current every day smoker; Type: Cigarettes; Lives with someone who smokes; Cigarette Smoking Last 365 Days Yes; Reg Smoking Cessation Counseling No Assessment and Plan No data available for this section
--- OUTSIDE RECORDS SUMMARY | 2018-07-13 09:13 | XMS REPORT | Summary of Care ---
Author Author [facility] Organization [facility] Address Unknown Phone Unavailable Encounter [facility] Monie(FREDERIC) [id number] Date(s): 01/23/15 - 01/23/15 [facility] [address] [place] [address]- Discharge Diagnosis: Chronic obstructive pulmonary disease, unspecified Discharge Diagnosis: Discharge Disposition: Home Attending Physician: Abelardo Alvarez DO Vital Signs 1 2 3 Most recent to oldest [Reference Range]: 175.26 cm (01/23/15 9:58 AM) Height 97.6 DegF (01/23/15 12:30 PM) 97.6 DegF (01/23/15 9:58 AM) Temperature Oral [96.4-99.1 DegF] 145/86 mmHg *HI* (01/23/15 12:30 PM) 147/79 mmHg *HI* (01/23/15 11:46 AM) 128/86 mmHg (01/23/15 9:58 AM) Blood Pressure [90-140/60-90 mmHg] 18 BRMIN (01/23/15 12:30 PM) 18 BRMIN (01/23/15 11:46 AM) 19 BRMIN (01/23/15 10:25 AM) Respiratory Rate [14-20 BRMIN] 89 bpm (01/23/15 12:30 PM) 85 bpm (01/23/15 11:46 AM) 99 bpm (01/23/15 9:58 AM) Peripheral Pulse Rate [60-100 bpm] 81.818 kg (01/23/15 9:58 AM) Weight 26.64 m2 (01/23/15 9:58 AM) Body Mass Index Problem List Condition Effective Dates Status Health Status Informant Asthma(Confirmed) Active COPD(Confirmed) Active High blood Active pressure(Confirmed) Allergies, Adverse Reactions, Alerts Substance Reaction Severity Status Rocephin Active Medications albuterol 0.083% inhalation solution 2.49 mg=3 mL, INHALATION, Q6H, # 120 ea, 0 Refill(s) Start Date: 01/23/15 Stop Date: 02/22/15 Status: Ordered albuterol 90 mcg/inh inhalation aerosol 2 puff, INHALATION, Q4H, PRN for wheezing, # 9 gm, 0 Refill(s) Start Date: 01/23/15 Status: Ordered albuterol-ipratropium 2.5-0.5 mg inhalation solution 9 mL, Route: NEB, Dosing Weight 81.818, kg, ONCE, STAT, Start date: 01/23/15 10: 12:00, Stop date: 01/23/15 10:12:00 Start Date: 01/23/15 Stop Date: 01/23/15 Status: Completed predniSONE 60 mg, Route: PO, Drug form: TAB, ONCE, Dosing Weight 81.818, kg, Priority: STAT , Start date: 01/23/15 10:12:00, Stop date: 01/23/15 10:12:00 Start Date: 01/23/15 Stop Date: 01/23/15 Status: Completed predniSONE 20 mg oral tablet 40 mg=2 tab, PO, Daily, X 5 day, # 10 tab, 0 Refill(s) Start Date: 01/23/15 Stop Date: 01/28/15 Status: Ordered Symbicort 80/4.5 inhalation aerosol with adapter 2 puff, INHALATION, BID, # 10.2 gm, 0 Refill(s) Start Date: 01/23/15 Status: Ordered Results No data available for this section Immunizations [...]
--- OUTSIDE RECORDS SUMMARY | 2018-07-13 09:13 | XMS REPORT | Summary of Care ---
Author Author [facility] Organization [facility] Address Unknown Phone Unavailable Encounter LADY Lomax(FREDERIC) [id number] Date(s): 05/25/16 - 05/25/16 [facility] [address] [place] [address]- Discharge Disposition: Home or Self Care Attending Physician: Briana Landeros MD Admitting Physician: Briana Lnaderos MD Vital Signs 1 2 3 Most recent to oldest [Reference Range]: 175.26 cm (05/25/16 12:41 PM) 175.26 cm (05/25/16 4:02 AM) Height 98.2 DegF (05/25/16 12:45 PM) 98.1 DegF (05/25/16 12:35 PM) 98.1 DegF (05/25/16 10:16 AM) Temperature Oral [96.4-99.1 DegF] 129/78 mmHg (05/25/16 12:45 PM) 114/69 mmHg (05/25/16 12:35 PM) 131/76 mmHg (05/25/16 10:16 AM) Blood Pressure [90-140/60-90 mmHg] 18 BRMIN (05/25/16 12:45 PM) 17 BRMIN (05/25/16 12:35 PM) 16 BRMIN (05/25/16 10:16 AM) Respiratory Rate [14-20 BRMIN] 79 bpm (05/25/16 12:45 PM) 114 bpm *HI* (05/25/16 4:02 AM) Peripheral Pulse Rate [60-100 bpm] 85 kg (05/25/16 12:41 PM) 89.545 kg (05/25/16 4:02 AM) Weight 27.67 m2 (05/25/16 12:41 PM) 29.15 m2 (05/25/16 4:02 AM) Body Mass Index Problem List Condition Effective Dates Status Health Status Informant Asthma(Confirmed) Active COPD(Confirmed) Active High blood Active pressure(Confirmed) Allergies, Adverse Reactions, Alerts Substance Reaction Severity Status Rocephin Active Medications albuterol 90 mcg/inh inhalation aerosol 2 puff, INHALATION, Q4H, PRN for wheezing, # 9 gm, 0 Refill(s) Start Date: 05/25/16 Status: Ordered albuterol 90 mcg/inh inhalation aerosol 2 puff, Route: INHALATION, Drug Form: AERO/A, Dosing Weight 85, kg, Q4H, PRN Whe ezing, Start date: 05/25/16 14:26:00 CDT, Duration: 30 day, Stop date: 06/24/16 14:25:00 CDT Notes: Albuterol 90 microgram/inh 8gm HFAWASTE: Aerosol - Return to Pharmacy [facility] as: Soumya Lau Start Date: 05/25/16 Stop Date: 05/25/16 Status: Discontinued albuterol-ipratropium 2.5-0.5 mg inhalation solution 9 mL, Route: NEB, Dosing Weight 89.545, kg, ONCE, STAT, Start date: 05/25/16 5:2 5:00 CDT, Stop date: 05/25/16 5:25:00 CDT Start Date: 05/25/16 Stop Date: 05/25/16 Status: Completed amLODIPine 10 mg, 2 tab, Route: PO, Drug form: TAB, Daily, Dosing Weight 85, kg, Start date : 05/26/16 9:00:00 CDT, Duration: 30 day, Stop date: 06/24/16 9:00:00 CDT Notes: (Same as: Rosa) Start Date: 05/26/16 Stop Date: 05/25/16 Status: Canceled aspirin 81 mg tablet, enteric coated 81 mg=1 tab, PO, Daily, # 90 tab, 3 Refill(s) Start Date: 05/25/16 Status: Ordered predniSONE 60 mg, Route: PO, Drug form: TAB, ONCE, Dosing Weight 89.545, kg, Priority: STAT , Start date: 05/25/16 5:25:00 CDT, Stop date: 05/25/16 5:25:00 CDT Start Date: 05/25/16 Stop Date: 05/25/16 Status: Completed Symbicort 80/4.5 inhalation aerosol with adapter 2 puff, INHALATION, BID, # 10.2 gm, 0 Refill(s) Start Date: 05/25/16 Status: Ordered Symbicort 80/4.5 inhalation aerosol with adapter 2 inhalation, Route: INHALATION, Drug Form: AERO/A, Dosing Weight 85, kg, BID, S tart date: 05/25/16 17:00:00 CDT, Duration: 30 day, Stop date: 06/24/16 9:00:00 CDT Notes: (Same as: Symbicort)WASTE: Aerosol - Return to Pharmacy Start Date: 05/25/16 Stop Date: 05/25/16 Status: Canceled Results ELECTROLYTES Most recent to 1 oldest [Reference Range]: Sodium Lvl [135-145 144 mEq/L mEq/L] (05/25/16 5:07 AM) Potassium Lvl 3.7 mEq/L [3.5-5.1 mEq/L] (05/25/16 5:07 AM) Chloride Lvl [95-109 109 mEq/L mEq/L] (05/25/16 5:07 AM) CO2 [24-32 mEq/L] 28 mEq/L (05/25/16 5:07 AM) AGAP [10.0-20.0 10.7 mEq/L mEq/L] (05/25/16 5:07 AM) CHEM PANEL Most recent to 1 oldest [Reference Range]: Creatinine Lvl 1.10 mg/dL [0.50-1.40 mg/dL] (05/25/16 5:07 AM) eGFR 66 mL/min/1.73m2 1 *NA* (05/25/16 5:07 AM) BUN [7-22 mg/dL] 13 mg/dL (05/25/16 5:07 AM) B/C Ratio [6-25] 12 (05/25/16 5:07 AM) Glucose Lvl [70-99 82 mg/dL mg/dL] (05/25/16 5:07 AM) Total Protein 7.5 g/dL [6.4-8.4 g/dL] (05/25/16 5:07 AM) Albumin Lvl [3.5-5.0 3.5 g/dL g/dL] (05/25/16 5:07 AM) Globulin [2.7-4.2 4.0 g/dL g/dL] (05/25/16 5:07 AM) A/G Ratio [0.7-1.6] 0.9 (05/25/16 5:07 AM) Calcium Lvl 8.7 mg/dL [8.5-10.5 mg/dL] (05/25/16 5:07 AM) Phosphorus [2.5-4.5 3.1 mg/dL mg/dL] (05/25/16 5:07 AM) Magnesium Lvl 2.3 mg/dL [1.8-2.4 mg/dL] (05/25/16 5:07 AM) ALT [0-65 unit/L] 17 unit/L (05/25/16 5:07 AM) AST [0-37 unit/L] 18 unit/L (05/25/16 5:07 AM) Alk Phos [39-136 81 unit/L unit/L] (05/25/16 5:07 AM) Bili Total [0.2-1.3 0.2 mg/dL mg/dL] (05/25/16 5:07 AM) 1Result Comment: The eGFR is calculated [...] 1 oldest [Reference Range]: Total CK [12-191 134 unit/L unit/L] (05/25/16 5:07 AM) CK MB [0.5-3.6 1.3 ng/mL ng/mL] (05/25/16 5:07 AM) CK MB Index 1.0 [0.0-2.5] (05/25/16 5:07 AM) Troponin-I <0.02 ng/mL [0.00-0.40 ng/mL] (05/25/16 5:07 AM) BNP [<=100 pg/mL] 12 pg/mL (05/25/16 AM) HEMATOLOGY Most recent to 1 oldest [Reference Range]: WBC [3.7-10.4 K/CMM] 8.7 K/CMM (05/25/16 5:07 AM) RBC [4.20-5.40 4.40 M/CMM M/CMM] (05/25/16 5:07 AM) Hgb [12.0-16.0 g/dL] 12.4 g/dL (05/25/16 5:07 AM) Hct [36.0-48.0 %] 38.2 % (05/25/16:07 AM) MCV [80.0-98.0 fL] 86.8 fL (05/25/16:07 AM) MCH [27.0-31.0 pg] 28.3 pg (05/25/16:07 AM) MCHC [32.0-36.0 32.6 g/dL g/dL] (05/25/16 5:07 AM) RDW [11.5-14.5 %] 14.7 % *HI* (05/25/16 5:07 AM) Platelet [133-450 324 K/CMM K/CMM] (05/25/16 5:07 AM) MPV [7.4-10.4 fL] 8.0 fL (05/25/16 5:07 AM) Segs [45.0-75.0 %] 50.8 % (05/25/16 5:07 AM) Lymphocytes 35.1 % [20.0-40.0 %] (05/25/16 5:07 AM) Monocytes [2.0-12.0 7.4 % %] (05/25/16 5:07 AM) Eosinophils [0.0-4.0 5.6 % %] *HI* (05/25/16 5:07 AM) Basophils [0.0-1.0 1.1 % %] *HI* (05/25/16 5:07 AM) Segs-Bands # 4.4 K/CMM [1.5-8.1 K/CMM] (05/25/16 5:07 AM) Lymphocytes # 3.0 K/CMM [1.0-5.5 K/CMM] (05/25/16 5:07 AM) Monocytes # [0.0-0.8 0.6 K/CMM K/CMM] (05/25/16 5:07 AM) Eosinophils # 0.5 K/CMM [0.0-0.5 K/CMM] (05/25/16 5:07 AM) Basophils # [0.0-0.2 0.1 K/CMM K/CMM] (05/25/16 5:07 AM) PT [12.0-14.7 12.3 seconds seconds] (05/25/16 5:07 AM) INR [0.85-1.17] 0.90 (05/25/16 5:07 AM) PTT [22.9-35.8 26.9 seconds seconds] (05/25/16 5:07 AM) Immunizations Given and Recorded Vaccine Date Status Refusal Reason influenza virus vaccine, inactivated 04/09/12 Given pneumococcal 23-valent vaccine 10/13/12 Given Procedures Procedure Date Related Diagnosis Body Site D&C - Dilatation and curettage Tubal ligation Social History Social History Type Response Alcohol Past Smoking Status Current every day smoker; Type: Cigarettes; Exposure to Tobacco Smoke None; Cigarette Smoking Last 365 Days No; Reg Smoking Cessation Counseling No Assessment and Plan Extracted from: Title: Clinical Document Author: Den Singh MD Date: 05/25/16 [facility] Initial Cardiology H&P Chief Complaint: cp HPI: 56-year-old female with history of COPD and hypertension who presents to the hospital with shortness of breath and chest tightness. She says a month ago she started to have sinus congestion with a cough. Her shortness of breath and started. Whenever she gets short of breath, her chest tightness also starts. She says she is not taking her inhalers for COPD. she is supposed to take Symbicort twice a day and albuterol as needed. She does not have any exertional chest pain. She got a neb treatment in the ER and her symptoms have improved. Her cardiac enzymes are normal 2. Her chest x-ray does not show any evidence of fluid overload. Her EKG does show inferior and lateral ST-T wave changes concerning for ischemia. They do appear to be new compared to the prior EKG. No palpitations. She denies ever having a stress test in the past. She does not see a online affiliate marketing manager in the past. 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 REVIEW OF SYSTEMS: CONSTITUTIONAL: No fever. No chills. No dizziness. No weakness. EYES: No pain, erythema, or discharge. No blurring of vision. EAR, NOSE AND THROAT: No sore throat, URI symptoms. No epistaxis. No tinnitus. CARDIOVASCULAR: + chest pain. No palpitations. No lower extremity edema. RESPIRATORY: + shortness of breath, + cough, no pain with respiration, or pleuritic chest pain. No hemoptysis. No dyspnea. No paroxysmal nocturnal dyspnea. GASTROINTESTINAL: Normal appetite. No nausea, vomiting, diarrhea. No pain. No bloating. No melena. GENITOURINARY: No frequency, urgency, nocturia. No hematuria or dysuria. MUSCULOSKELETAL: No arthralgias or myalgias. INTEGUMENTARY: No swelling. No bruising. No contusions. No abrasions. No lymphangitis. NEUROLOGIC: No headache. No neck pain. No numbness or tingling of the extremities. No weakness. PSYCHIATRIC: No confusion. METABOLIC: No fatigue. No weakness. No history of thyroid, diabetes or adrenal problems. HEMATOLOGICAL: No bleeding. No petechiae. No bruising. ALLERGY: No asthma. No urticaria. PAST MEDICAL HISTORY: No qualifying data available PAST SURGICAL HISTORY: Tubal ligation D&C - Dilatation and curettage FAMILY HISTORY: No qualifying data available SOCIAL HISTORY: + tobacco, no alcohol, or drug abuse MEDICATIONS: See inpatient medications below Allergies: Rocephin VitalsTmp(F)[id number] 05/25 06:04----[id number]--- 05/25 05:35 1898 21% 05/25 05:00----[id number]--- 05/25 04:[id number]--- 24 Hr Tmax: 98.6F (37.00c) at 05/25 04:02Vital Signs are the last 5 in the past 48 hours. Gen: Alert, no apparent distress Neck: No carotid bruits, No JVD Lungs: CTAB Heart: Regular, normal s1 s2, no murmurs Abd: Soft, nt, nd, +bs Ext: No edema, 2+ pulses distally Neuro: No focal deficits Skin: warm, moist Labs (Last four charted values) WBC 8.7(MAY 25) Hgb 12.4(MAY 25) Hct 38.2(MAY 25) Plt 324(MAY 25) Na 144(MAY 25) K 3.7(MAY 25) CO2 28(MAY 25) Cl 109(MAY 25) Cr 1.10(MAY 25) BUN 13(MAY 25) Glucose Random 82(MAY 25) Mg 2.3(MAY 25) Phos 3.1(MAY 25) Ca 8.7(MAY 25) PT 12.3(MAY 25) INR 0.90(MAY 25) PTT 26.9(MAY 25) Troponin <0.02(MAY 25) CK MB 1.3(MAY 25) Total CK 134(MAY 25) Impression: Atypical chest pain Shortness of breath htn smoker Abnormal EKG Plan: Her symptoms of chest pain or shortness of breath are atypical for coronary artery disease and do appear to be possibly from COPD. She is not compliant with her inhalers. Her cardiac enzymes are normal 2. However her EKG does show ST T-wave changes in the inferior lateral leads. She does still have mild chest tightness present. I will get a treadmill nuclear stress test to further evaluate her atypical chest pain and EKG changes. If the stress test is normal, she can go home from a cardiology standpoint. She is educated on being compliant with her inhalers. Continuous Infusions: None Scheduled Meds: None Addendum treadmill nuclear stress was normal. she can go home. will give her refills of her by [place], inhalers and start asa. will check lipids and a1c in office Den WISEMAN on 05/25/2016 14:29
--- OUTSIDE RECORDS SUMMARY | 2018-07-13 09:13 | XMS REPORT | Summary of Care ---
Author Author [facility] Organization [facility] Address Unknown Phone Unavailable Encounter LADY Lomax(FREDERIC) [id number] Date(s): 02/20/15 - 02/20/15 [facility] [address] [place] [address]- [phone] Discharge Diagnosis: Acute bronchitis with COPD Discharge Disposition: Home Attending Physician: Kaushik Sanchez MD Vital Signs 1 2 3 Most recent to oldest [Reference Range]: 175.26 cm (02/20/15 5:18 PM) Height 98.4 DegF (02/20/15 7:00 PM) Temperature Oral [96.4-99.1 DegF] 139/80 mmHg (02/20/15 7:00 PM) 120/83 mmHg (02/20/15 6:21 PM) 144/93 mmHg *HI* (02/20/15 5:47 PM) Blood Pressure [90-140/60-90 mmHg] 14 BRMIN (02/20/15 7:00 PM) 17 BRMIN (02/20/15 6:21 PM) 18 BRMIN (02/20/15 6:17 PM) Respiratory Rate [14-20 BRMIN] 106 bpm *HI* (02/20/15 5:18 PM) Peripheral Pulse Rate [60-100 bpm] 81.818 kg (02/20/15 5:18 PM) Weight 26.64 m2 (02/20/15 5:18 PM) Body Mass Index Problem List Condition Effective Dates Status Health Status Informant Asthma(Confirmed) Active COPD(Confirmed) Active High blood Active pressure(Confirmed) Allergies, Adverse Reactions, Alerts Substance Reaction Severity Status Rocephin Active Medications albuterol 0.083% inhalation solution 2.49 mg=3 mL, INHALATION, Q4H, PRN wheezing, coughing, or shortness of breath, # 120 ea, 1 Refill(s) Start Date: 02/20/15 Status: Ordered albuterol-ipratropium 2.5-0.5 mg inhalation solution 3 mL, Route: NEB, Dosing Weight 81.818, kg, ONCE, STAT, Start date: 02/20/15 17: 38:00, Stop date: 02/20/15 17:38:00 Start Date: 02/20/15 Stop Date: 02/20/15 Status: Completed azithromycin 250 mg oral tablet See Instructions, Take 2 tablets by mouth the first day then 1 tablet by mouth d ays 2-5., X 5 day, # 6 tab, 0 Refill(s) Start Date: 02/20/15 Stop Date: 02/25/15 Status: Ordered predniSONE 20 mg oral tablet 60 mg=3 tab, PO, Daily, Take 3 tablets for 60 mg dose, X 5 day, # 15 tab, 0 Refi ll(s) Start Date: 02/20/15 Stop Date: 02/25/15 Status: Ordered Proventil HFA 90 mcg/inh inhalation aerosol with adapter 2 puff, INHALER, Q4H, PRN wheezing, coughing, or shortness of breath, # 1 ea, 1 Refill(s) Start Date: 02/20/15 Status: Ordered Solu-MEDROL 125 mg, Route: IVP, ONCE, Dosing Weight 81.818, kg, Priority: STAT, Start date: 02/20/15 17:42:00, Stop date: 02/20/15 17:42:00 Start Date: 02/20/15 Stop Date: 02/20/15 Status: Completed Results ELECTROLYTES Most recent to 1 oldest [Reference Range]: Sodium Lvl [135-145 141 mEq/L mEq/L] (02/20/15 6:07 PM) Potassium Lvl 3.7 mEq/L [3.5-5.1 mEq/L] (02/20/15 6:07 PM) Chloride Lvl [95-109 107 mEq/L mEq/L] (02/20/15 6:07 PM) CO2 [24-32 mEq/L] 27 mEq/L (02/20/15 6:07 PM) AGAP [10.0-20.0 10.7 mEq/L mEq/L] (02/20/15 6:07 PM) CHEM PANEL Most recent to 1 oldest [Reference Range]: Creatinine Lvl 0.92 mg/dL [0.50-1.40 mg/dL] (02/20/15 6:07 PM) eGFR 82 mL/min/1.73m2 1 *NA* (02/20/15 6:07 PM) BUN [7-22 mg/dL] 13 mg/dL (02/20/15 6:07 PM) B/C Ratio [6-25] 14 (02/20/15 6:07 PM) Glucose Lvl [70-99 106 mg/dL mg/dL] *HI* (02/20/15 6:07 PM) Total Protein 7.7 g/dL [6.4-8.4 g/dL] (02/20/15 6:07 PM) Albumin Lvl [3.5-5.0 3.8 g/dL g/dL] (02/20/15 6:07 PM) Globulin [2.0-4.0 3.9 g/dL g/dL] (02/20/15 6:07 PM) A/G Ratio [0.7-1.6] 1.0 (02/20/15 6:07 PM) Calcium Lvl 8.9 mg/dL [8.5-10.5 mg/dL] (02/20/15 6:07 PM) ALT [0-65 unit/L] 19 unit/L (02/20/15 6:07 PM) AST [0-37 unit/L] 18 unit/L (02/20/15 6:07 PM) Alk Phos [39-136 78 unit/L unit/L] (02/20/15 6:07 PM) Bili Total [0.2-1.3 0.3 mg/dL mg/dL] (02/20/15 6:07 PM) 1Result Comment: The eGFR is calculated [...] be mul tiplied by the estimated BMI. IMMUNOLOGY Most recent to 1 oldest [Reference Range]: CDC HIV 4th GEN Negative [Negative] (02/20/15 6:07 PM) [place]-Hep C Ab Negative [Negative] *NA* (02/20/15 6:07 PM) HEMATOLOGY Most recent to 1 oldest [Reference Range]: WBC [3.7-10.4 K/CMM] 12.1 K/CMM *HI* (02/20/15 6:07 PM) RBC [4.20-5.40 4.54 M/CMM M/CMM] (02/20/15 6:07 PM) Hgb [12.0-16.0 g/dL] 12.6 g/dL (02/20/15 6:07 PM) Hct [36.0-48.0 %] 41.2 % (02/20/15 6:07 PM) MCV [80.0-98.0 fL] 90.8 fL (02/20/15 6:07 PM) MCH [27.0-31.0 pg] 27.8 pg (02/20/15 6:07 PM) MCHC [32.0-36.0 30.6 g/dL g/dL] *LOW* (02/20/15 6:07 PM) RDW [11.5-14.5 %] 15.2 % *HI* (02/20/15 6:07 PM) Platelet [133-450 344 K/CMM K/CMM] (02/20/15 6:07 PM) MPV [7.4-10.4 fL] 8.7 fL (02/20/15 6:07 PM) Segs [45.0-75.0 %] 44.5 % *LOW* (02/20/15 6:07 PM) Lymphocytes 40.9 % [20.0-40.0 %] *HI* (02/20/15 6:07 PM) Monocytes [2.0-12.0 5.2 % %] (02/20/15 6:07 PM) Eosinophils [0.0-4.0 8.1 % %] *HI* (02/20/15 6:07 PM) Basophils [0.0-1.0 1.3 % %] *HI* (02/20/15 6:07 PM) Segs-Bands # 5.4 K/CMM [1.5-8.1 K/CMM] (02/20/15 6:07 PM) Lymphocytes # 4.9 K/CMM [1.0-5.5 K/CMM] (02/20/15 6:07 PM) Monocytes # [0.0-0.8 0.6 K/CMM K/CMM] (02/20/15 6:07 PM) Eosinophils # 1.0 K/CMM [0.0-0.5 K/CMM] *HI* (02/20/15 6:07 PM) Basophils # [0.0-0.2 0.2 K/CMM K/CMM] (02/20/15 6:07 PM) Target Cell Slight *NA* (02/20/15 6:07 PM) Tear Cell Sllight *NA* (02/20/15 6:07 PM) Schistocyte [None 1-3 per HPF Seen] (02/20/15 6:07 PM) Plt Morph Normal (02/20/15 6:07 PM) Large Plt Slight *NA* (02/20/15 6:07 PM) Immunizations Vaccine Date Refusal Reason influenza virus vaccine, inactivated 04/09/12 pneumococcal 23-valent vaccine 10/13/12 Procedures Procedure Date Related Diagnosis Body Site D&C - Dilatation and curettage Tubal ligation Social History Social History Type Response Smoking Status Former smoker; Type: Cigarettes; Tobacco use per day: 7; Number of years: 20; Exposure to Tobacco Smoke None; Cigarette Smoking Last 365 Days No; Reg Smoking Cessation Counseling No Assessment and Plan No data available for this section
--- OUTSIDE RECORDS SUMMARY | 2018-07-13 09:13 | XMS REPORT | Summary of Care ---
Author Author [facility] Organization [facility] Address Unknown Phone Unavailable Encounter LADY Lomax(FREDERIC) [id number] Date(s): 06/14/15 - 06/14/15 [facility] [address] [place] [address]- Discharge Diagnosis: COPD exacerbation Discharge Disposition: Home Attending Physician: Anthony Gordon MD Vital Signs 1 2 3 Most recent to oldest [Reference Range]: 175.26 cm (06/14/15 12:35 PM) Height 98.4 DegF (06/14/15 2:44 PM) 98.2 DegF (06/14/15 12:52 PM) 97.6 DegF (06/14/15 12:35 PM) Temperature Oral [96.4-99.1 DegF] 149/82 mmHg *HI* (06/14/15 2:44 PM) 136/87 mmHg (06/14/15 12:35 PM) Blood Pressure [90-140/60-90 mmHg] 119 mmHg (06/14/15 12:52 PM) Systolic Blood Pressure [90-140 mmHg] 81 mmHg (06/14/15 12:52 PM) Diastolic Blood Pressure [60-90 mmHg] 20 BRMIN (06/14/15 2:44 PM) 17 BRMIN (06/14/15 12:52 PM) 24 BRMIN *HI* (06/14/15 12:35 PM) Respiratory Rate [14-20 BRMIN] 77 bpm (06/14/15 2:44 PM) 79 bpm (06/14/15 12:52 PM) 92 bpm (06/14/15 12:35 PM) Peripheral Pulse Rate [60-100 bpm] 82.273 kg (06/14/15 12:35 PM) Weight 26.79 m2 (06/14/15 12:35 PM) Body Mass Index Problem List Condition Effective Dates Status Health Status Informant Asthma(Confirmed) Active COPD(Confirmed) Active High blood Active pressure(Confirmed) Allergies, Adverse Reactions, Alerts Substance Reaction Severity Status Rocephin Active Medications albuterol-ipratropium 2.5-0.5 mg inhalation solution 3 mL, Route: NEB, Drug Form: SOLN, Dosing Weight 82.273, kg, ONCE, STAT, Start d ate: 06/14/15 13:24:00, Stop date: 06/14/15 13:24:00 Notes: (Same as: Duoneb) Start Date: 06/14/15 Stop Date: 06/14/15 Status: Completed DuoNeb inhalation solution 3 ml, Route: NEB, Drug Form: SOLN, Dosing Weight 81.818, kg, PRN, PRN Respirator y Protocol, STAT, Start date: 06/14/15 12:36:00, Duration: 30 day, Stop date: 12:35:00 Notes: (Same as: Duoneb) Start Date: 06/14/15 Stop Date: 06/14/15 Status: Discontinued methylPREDNISolone SODium SUCCinate 125 mg, 2 mL, Route: IVP, Drug form: INJ, ONCE, Dosing Weight 82.273, kg, Priori ty: STAT, Start date: 06/14/15 13:24:00, Stop date: 06/14/15 13:24:00 Notes: (Same as:Solu-MEDROL, A-Methapred) Start Date: 06/14/15 Stop Date: 06/14/15 Status: Completed predniSONE 20 mg oral tablet 40 mg=2 tab, PO, Daily, X 5 day, # 10 tab, 0 Refill(s) Start Date: 06/14/15 Stop Date: 06/19/15 Status: Ordered ProAir HFA 90 mcg/inh inhalation aerosol with adapter 2 puff, INHALER, Q6H, PRN for wheezing, # 8.5 gm, 0 Refill(s) Start Date: 06/14/15 Status: Ordered Saline Flush 0.9% 10 mL, Route: IVP, Drug Form: INJ, Dosing Weight 82.273, kg, PRN, PRN Line Flush , Start date: 06/14/15 13:24:00, Duration: 30 day, Stop date: 07/14/15 13:23:00 Notes: (Same as: BD Posiflush) Start Date: 06/14/15 Stop Date: 06/14/15 Status: Discontinued Results ELECTROLYTES Most recent to 1 oldest [Reference Range]: Sodium Lvl [135-145 138 mEq/L mEq/L] (06/14/15 2:39 PM) Potassium Lvl 3.6 mEq/L [3.5-5.1 mEq/L] (06/14/15 2:39 PM) Chloride Lvl [95-109 104 mEq/L mEq/L] (06/14/15 2:39 PM) CO2 [24-32 mEq/L] 30 mEq/L (06/14/15 2:39 PM) AGAP [10.0-20.0 7.6 mEq/L mEq/L] *LOW* (06/14/15 2:39 PM) CHEM PANEL Most recent to 1 oldest [Reference Range]: Creatinine Lvl 0.94 mg/dL [0.50-1.40 mg/dL] (06/14/15 2:39 PM) eGFR 80 mL/min/1.73m2 1 *NA* (06/14/15 2:39 PM) BUN [7-22 mg/dL] 13 mg/dL (06/14/15 2:39 PM) B/C Ratio [6-25] 14 (06/14/15 2:39 PM) Glucose Lvl [70-99 96 mg/dL mg/dL] (06/14/15 2:39 PM) Total Protein 8.2 g/dL [6.4-8.4 g/dL] (06/14/15 2:39 PM) Albumin Lvl [3.5-5.0 4.2 g/dL g/dL] (06/14/15 2:39 PM) Globulin [2.0-4.0 4.0 g/dL g/dL] (06/14/15 2:39 PM) A/G Ratio [0.7-1.6] 1.0 (06/14/15 2:39 PM) Calcium Lvl 9.0 mg/dL [8.5-10.5 mg/dL] (06/14/15 2:39 PM) ALT [0-65 unit/L] 20 unit/L (06/14/15 2:39 PM) AST [0-37 unit/L] 19 unit/L (06/14/15 2:39 PM) Alk Phos [39-136 78 unit/L unit/L] (06/14/15 2:39 PM) Bili Total [0.2-1.3 0.1 mg/dL mg/dL] *LOW* (06/14/15 2:39 PM) 1Result Comment: The eGFR is calculated [...] 1 oldest [Reference Range]: Total CK [12-191 157 unit/L unit/L] (06/14/15 2:39 PM) CK MB [0.5-3.6 1.8 ng/mL ng/mL] (06/14/15 2:39 PM) CK MB Index 1.1 [0.0-2.5] (06/14/15 2:39 PM) Troponin-I <0.02 ng/mL [0.00-0.40 ng/mL] (06/14/15 2:39 PM) BNP [<=100 pg/mL] 6 pg/mL (06/14/15 2:39 PM) HEMATOLOGY Most recent to 1 oldest [Reference Range]: WBC [3.7-10.4 K/CMM] 8.6 K/CMM (06/14/15 2:39 PM) RBC [4.20-5.40 4.50 M/CMM M/CMM] (06/14/15 2:39 PM) Hgb [12.0-16.0 g/dL] 12.9 g/dL (06/14/15 2:39 PM) Hct [36.0-48.0 %] 40.1 % (06/14/15 2:39 PM) MCV [80.0-98.0 fL] 89.0 fL (06/14/15 2:39 PM) MCH [27.0-31.0 pg] 28.6 pg (06/14/15 2:39 PM) MCHC [32.0-36.0 32.2 g/dL g/dL] (06/14/15 2:39 PM) RDW [11.5-14.5 %] 14.2 % (06/14/15 2:39 PM) Platelet [133-450 315 K/CMM K/CMM] (06/14/15 2:39 PM) MPV [7.4-10.4 fL] 8.1 fL (06/14/15 2:39 PM) Segs [45.0-75.0 %] 85.2 % *HI* (06/14/15 2:39 PM) Lymphocytes 11.9 % [20.0-40.0 %] *LOW* (06/14/15 2:39 PM) Monocytes [2.0-12.0 1.3 % %] *LOW* (06/14/15 2:39 PM) Eosinophils [0.0-4.0 0.7 % %] (06/14/15 2:39 PM) Basophils [0.0-1.0 0.9 % %] (06/14/15 2:39 PM) Segs-Bands # 7.3 K/CMM [1.5-8.1 K/CMM] (06/14/15 2:39 PM) Lymphocytes # 1.0 K/CMM [1.0-5.5 K/CMM] (06/14/15 2:39 PM) Monocytes # [0.0-0.8 0.1 K/CMM K/CMM] (06/14/15 2:39 PM) Eosinophils # 0.1 K/CMM [0.0-0.5 K/CMM] (06/14/15 2:39 PM) Basophils # [0.0-0.2 0.1 K/CMM K/CMM] (06/14/15 2:39 PM) PT [12.0-14.7 12.7 seconds seconds] (06/14/15 2:39 PM) INR [0.85-1.17] 0.92 (06/14/15 2:39 PM) PTT [22.9-35.8 26.8 seconds seconds] (06/14/15 2:39 PM) Immunizations Vaccine Date Refusal Reason influenza [...]
--- OUTSIDE RECORDS SUMMARY | 2018-07-13 09:13 | XMS REPORT ---
Author Author [facility] Address Unknown Phone Unavailable Care Team Providers Care Agent Contract Clerk Name Role Phone Unavailable Unavailable Problems This patient has no known problems. Allergies, Adverse Reactions, Alerts This patient has no known allergies or adverse reactions. Medications This patient has no known medications. Encounters Start Date/Time End Date/Time Encounter Type Admission Type Attending [facility] [place] Facility Care Department Encounter ID 2016-12-23 00:00:00 2016-12-23 00:00:00 Outpatient [facility] [id number] 2016-11-25 00:00:00 2016-11-25 00:00:00 Outpatient [facility] [id number] 2016-11-09 00:00:00 2016-11-09 00:00:00 Outpatient [facility] [id number]
--- OUTSIDE RECORDS SUMMARY | 2018-07-13 09:13 | XMS REPORT | Summary of Care ---
Author Author [facility] Organization [facility] Address Unknown Phone Unavailable Encounter LADY Lomax(FREDERIC) [phone] Date(s): 05/24/16 - 05/24/16 [facility] [address] [place] [address]- [phone] Discharge Disposition: Elopement Attending Physician: Abelardo Alvarez DO Vital Signs Most recent to 1 oldest [Reference Range]: Height 175.26 cm (05/24/16 1:10 PM) Temperature Oral 98.4 DegF [96.4-99.1 DegF] (05/24/16 1:10 PM) Blood Pressure 121/81 mmHg [90-140/60-90 mmHg] (05/24/16 1:10 PM) Respiratory Rate 18 BRMIN [14-20 BRMIN] (05/24/16 1:10 PM) Peripheral Pulse 95 bpm Rate [60-100 bpm] (05/24/16 1:10 PM) Weight 85 kg (05/24/16 1:10 PM) Body Mass Index 27.67 m2 (05/24/16 1:10 PM) Problem List Condition Effective Dates Status Health Status Informant Asthma(Confirmed) Active COPD(Confirmed) Active High blood Active pressure(Confirmed) Allergies, Adverse Reactions, Alerts Substance Reaction Severity Status Rocephin Active Medications Saline Flush 0.9% 10 mL, Route: IVP, Drug Form: INJ, Dosing Weight 85, kg, PRN, PRN Line Flush, St art date: 05/24/16 13:13:00 CDT, Duration: 30 day, Stop date: 06/23/16 13:12:00 CDT Notes: (Same as: BD Posiflush) Start Date: 05/24/16 Stop Date: 05/24/16 Status: Discontinued Results ELECTROLYTES Most recent to 1 oldest [Reference Range]: Sodium Lvl [135-145 141 mEq/L mEq/L] (05/24/16 1:20 PM) Potassium Lvl 3.5 mEq/L [3.5-5.1 mEq/L] (05/24/16 1:20 PM) Chloride Lvl [95-109 106 mEq/L mEq/L] (05/24/16 1:20 PM) CO2 [24-32 mEq/L] 22 mEq/L *LOW* (05/24/16 1:20 PM) AGAP [10.0-20.0 16.5 mEq/L mEq/L] (05/24/16 1:20 PM) CHEM PANEL Most recent to 1 oldest [Reference Range]: Creatinine Lvl 0.97 mg/dL [0.50-1.40 mg/dL] (05/24/16 1:20 PM) eGFR 77 mL/min/1.73m2 1 *NA* (05/24/16 1:20 PM) BUN [7-22 mg/dL] 20 mg/dL (05/24/16 1:20 PM) B/C Ratio [6-25] 21 (05/24/16 1:20 PM) Glucose Lvl [70-99 97 mg/dL mg/dL] (05/24/16 1:20 PM) Total Protein 7.5 g/dL [6.4-8.4 g/dL] (05/24/16 1:20 PM) Albumin Lvl [3.5-5.0 3.8 g/dL g/dL] (05/24/16 1:20 PM) Globulin [2.7-4.2 3.7 g/dL g/dL] (05/24/16 1:20 PM) A/G Ratio [0.7-1.6] 1.0 (05/24/16 1:20 PM) Calcium Lvl 8.9 mg/dL [8.5-10.5 mg/dL] (05/24/16 1:20 PM) ALT [0-65 unit/L] 19 unit/L (05/24/16 1:20 PM) AST [0-37 unit/L] 19 unit/L (05/24/16 1:20 PM) Alk Phos [39-136 78 unit/L unit/L] (05/24/16 1:20 PM) Bili Total [0.2-1.3 0.1 mg/dL mg/dL] *LOW* (05/24/16 1:20 PM) 1Result Comment: The eGFR is calculated [...] 1 oldest [Reference Range]: Total CK [12-191 154 unit/L unit/L] (05/24/16 1:20 PM) CK MB [0.5-3.6 1.2 ng/mL ng/mL] (05/24/16 1:20 PM) CK MB Index 0.8 [0.0-2.5] (05/24/16 1:20 PM) Troponin-I <0.02 ng/mL [0.00-0.40 ng/mL] (05/24/16 1:20 PM) BNP [<=100 pg/mL] 10 pg/mL (05/24/16 1:20 PM) HEMATOLOGY Most recent to 1 oldest [Reference Range]: WBC [3.7-10.4 K/CMM] 10.8 K/CMM *HI* (05/24/16 1:20 PM) RBC [4.20-5.40 4.25 M/CMM M/CMM] (05/24/16 1:20 PM) Hgb [12.0-16.0 g/dL] 12.2 g/dL (05/24/16 1:20 PM) Hct [36.0-48.0 %] 36.9 % (05/24/16 1:20 PM) MCV [80.0-98.0 fL] 87.0 fL (05/24/16 1:20 PM) MCH [27.0-31.0 pg] 28.6 pg (05/24/16 1:20 PM) MCHC [32.0-36.0 32.9 g/dL g/dL] (05/24/16 1:20 PM) RDW [11.5-14.5 %] 14.5 % (05/24/16 1:20 PM) Platelet [133-450 300 K/CMM K/CMM] (05/24/16 1:20 PM) MPV [7.4-10.4 fL] 8.3 fL (05/24/16 1:20 PM) Segs [45.0-75.0 %] 50.3 % (05/24/16 1:20 PM) Lymphocytes 39.0 % [20.0-40.0 %] (05/24/16 1:20 PM) Monocytes [2.0-12.0 5.4 % %] (05/24/16 1:20 PM) Eosinophils [0.0-4.0 4.4 % %] *HI* (05/24/16 1:20 PM) Basophils [0.0-1.0 0.9 % %] (05/24/16 1:20 PM) Segs-Bands # 5.4 K/CMM [1.5-8.1 K/CMM] (05/24/16 1:20 PM) Lymphocytes # 4.2 K/CMM [1.0-5.5 K/CMM] (05/24/16 1:20 PM) Monocytes # [0.0-0.8 0.6 K/CMM K/CMM] (05/24/16 1:20 PM) Eosinophils # 0.5 K/CMM [0.0-0.5 K/CMM] (05/24/16 1:20 PM) Basophils # [0.0-0.2 0.1 K/CMM K/CMM] (05/24/16 1:20 PM) Immunizations Given and Recorded Vaccine Date Status [...]
--- NOTE | 2018-07-13 09:15 | NUR ---
RECEIVED PT FROM THE [facility] WITH [facility]Y GAIT. PT C/O SOB X 3-4 DAYS. SAYS HX OF COPD AND IS A SMOKER. SHE SAID SHE HAS BEEN USING HER SYMBICORT A LOT AND SHE IS OUT AND NO REFILLS. SAYS SYMBICORT IS NOT WORKING
[2018-07-13] MEDS ORDERED: ALBUTEROL/IPRATROPIUM 3 ML NEB NEB STA (09:16)
[2018-07-13] MEDS ORDERED: PREDNISONE 20 MG TAB PO ONE (09:30)
--- NOTE | 2018-07-13 10:09 | Diagnostic Imaging Report ---
EXAMINATION: CHEST SINGLE (PORTABLE) INDICATION: COPD. COMPARISON: None FINDINGS: TUBES and LINES: None. LUNGS: Lungs are moderately inflated. Mild patchy bibasilar opacities, likely atelectasis. There is no evidence of lobar pneumonia or pulmonary edema. PLEURA: No pleural effusion or pneumothorax. HEART AND MEDIASTINUM: The cardiomediastinal silhouette is unremarkable. BONES AND SOFT TISSUES: No acute osseous abnormality. UPPER ABDOMEN: No free air under the diaphragm. IMPRESSION: No acute radiographic abnormality. Signed by: Dr. Sania Wolf MD on 07/13/2018 10:05 AM
[2018-07-13] MEDS ORDERED: PROAIR HFA INH8.5 GM INH (10:30)
[2018-07-13] MEDS ORDERED: SYMBICORT 80-10.2 GM INH (10:30)
[2018-07-13] MEDS ORDERED: PREDNISONE20 MG PO (10:30)
[2018-07-13] MEDS ORDERED: ALBUTEROL/IPRATROPIUM 3 ML NEB ONE (10:31)
--- NOTE | 2018-07-13 11:05 | NUR ---
PT FINISHED WITH LAST NEB. SAYS SHE FEELS A LOT BETTER NOW. DISCHARGE INSTRUCTIONS GIVEN AND F/U CARE DISCUSSED. PT VERB. UNDERSTANDING.
[2018-07-13 11:31] VITALS: BP 138/73
== END 2018-07-13 11:15 | disposition home or self-care (01) ==
LOC: ER 09:06
DX: R06.00 Dyspnea, unspecified (principal); R05 Cough; J44.1 Chronic obstructive pulmonary disease with (acute) exacerbation; F17.210 Nicotine dependence, cigarettes, uncomplicated
CPT/HCPCS: 71045; 94640; 99283; J7512

== ENCOUNTER 2018-08-25 10:20 | Emergency (ER) | payer OTHER ==
[~2018-08-25] VITALS: Ht 175.3 cm; Wt 81.6 kg
[~2018-08-25 10:20] MED LIST: PREDNISONE20 MG PO; PROAIR HFA INH8.5 GM INH; SYMBICORT 80-10.2 GM INH
[2018-08-25] MEDS ORDERED: ASPIRIN 81 MG CHEW TAB PO ONE (10:45)
[2018-08-25 10:58] LABS: BILIRUBIN,URINE NEGATIVE (NEGATIVE); CLARITY,URINE SL CLOUDY (CLEAR); COLOR,URINE YELLOW (YELLOW); KETONES,URINE NEGATIVE (NEGATIVE); LEUKOCYTE ESTERASE ,URINE NEGATIVE (NEGATIVE); NITRITE,URINE NEGATIVE (NEGATIVE); PROTEIN,URINE DIPSTICK NEGATIVE (NEGATIVE); URINE UROBILINOGEN 0.2 mg/dL (0.2 - 1)
[2018-08-25 11:11] LABS: EPITHELIAL CELLS,URINE FEW /LPF; RBC,URINE 0-5 /HPF (0-5); WBC,URINE (MAN) 0-5 /HPF (0-5)
--- NOTE | 2018-08-25 11:22 | Diagnostic Imaging Report ---
EXAM: CHEST 2 VIEWS, PA and lateral DATE: 08/25/2018 Time stamp on exam: 10:42 AM INDICATION: Cough COMPARISON: 07/13/2018 FINDINGS: LINES/TUBES: None LUNGS: No consolidations or edema. The lungs are hyperinflated. PLEURA: No effusions or pneumothorax. HEART AND MEDIASTINUM: Normal size and contour. BONES AND SOFT TISSUES: No acute findings. IMPRESSION: No acute thoracic abnormality. Signed by: Dr. Nomi Campos DO on 08/25/2018 11:18 AM
[2018-08-25 11:44] LABS: INR 0.91; PROTHROMBIN TIME 12.7 seconds (11.9-14.5)
[2018-08-25 11:45] LABS: PARTIAL THROMBOPLASTIN TIME 26.6 seconds (23.8-35.5)
[2018-08-25 11:46] LABS: BASOPHILS % 0.6 % (0.0-1.0); EOSINOPHILS # (AUTO) 0.2 (0.0-0.4); EOSINOPHILS % 2.6 % (0.0-6.0); HEMATOCRIT 37.6 % (34.2-44.1); LYMPHOCYTES # (AUTO) 2.8 (1.0-3.2); MEAN CORPUSCULAR HEMOGLOBIN 28.1 pg (28-32); MEAN CORPUSCULAR HGB CONC 31.9 g/dL (31-35); MEAN CORPUSCULAR VOLUME 88.1 fL (81-99); MONOCYTES # (AUTO) 0.7 (0.2-0.8); MONOCYTES % 9.6 % (4.4-11.3); NEUTROPHILS # (AUTO) 3.3 (2.1-6.9); NEUTROPHILS % 46.9 % (38.7-80.0); PLATELET COUNT 316 x10e3/uL (140-360); RED BLOOD COUNT 4.27 x10e6/uL (3.6-5.1); RED CELL DISTRIBUTION WIDTH 15.4 % (11.7-14.4)
[2018-08-25 11:52] LABS: ALANINE AMINOTRANSFERASE 10 IU/L (0-55); ALBUMIN 3.6 g/dL (3.5-5.0); ALBUMIN/GLOBULIN RATIO 1.1 (0.8-2.0); ALKALINE PHOSPHATASE 67 IU/L (40-150); ANION GAP 11.5 mmol/L (8-16); BLOOD UREA NITROGEN 8 mg/dL (7-26); BUN/CREATININE RATIO 10 (6-25); CALCIUM 9.5 mg/dL (8.4-10.2); CARBON DIOXIDE 26 mmol/L (22-29); CHLORIDE 105 mmol/L (98-107); CREATINE KINASE 106 IU/L (29-168); CREATININE, SERUM 0.84 mg/dL (0.57-1.11); EST GLOMERULAR FILTRATION RATE > 60 ML/MIN (60-); GLUCOSE 90 mg/dL (74-118); POTASSIUM 3.5 mmol/L (3.5-5.1); SODIUM 139 mmol/L (136-145)
[2018-08-25] MEDS ORDERED: SODIUM CHLORIDE 0.9% 1000ML 1,000 ML IV STA (12:02)
[2018-08-25] MEDS ORDERED: ALBUTEROL SULF 0.083% NEB SOLN 3 ML NEB NEB ONE (12:30)
[2018-08-25] MEDS ORDERED: METHYLPREDNISOLONE SOD SUCC 125 MG/2ML VIAL IV ONE (12:30)
[2018-08-25] MEDS ORDERED: IPRATROPIUM BROMIDE 0.02% 2.5 ML NEB NEB ONE (12:30)
[2018-08-25 13:33] VITALS: BP 108/65
== END 2018-08-25 13:50 | disposition home or self-care (01) ==
LOC: ER 10:20
DX: R06.00 Dyspnea, unspecified (principal); J20.9 Acute bronchitis, unspecified; J44.1 Chronic obstructive pulmonary disease with (acute) exacerbation
CPT/HCPCS: 36415; 71046; 80053; 81001; 82550; 82553; 83880; 84484; 85025; 85610; 85730; 87040; 93005; 94640; 99284; J2930; J7030

== ENCOUNTER 2019-04-10 20:01 | Emergency (ER) | payer OTHER ==
[~2019-04-10] VITALS: Ht 175.3 cm; Wt 81.6 kg
[2019-04-10] MEDS ORDERED: ACETAMINOPHEN 325 MG TAB PO NR (21:30)
[2019-04-10 21:41] LABS: STREPTOCOCCUS GRP A ANTIGEN POSITIVE (NEGATIVE)
[2019-04-10 21:52] LABS: INFLUENZAE A&B ANTIGEN (RAPID) NEGATIVE (NEGATIVE)
--- NOTE | 2019-04-10 22:56 | Diagnostic Imaging Report ---
EXAMINATION: CHEST 2 VIEWS INDICATION: FEVER, COUGH COMPARISON: 08/25/2018. FINDINGS: TUBES and LINES: None. LUNGS: Lungs are well inflated. Mild perihilar, peribronchial thickening and perihilar streaky densities may reflect viral infection versus reactive airway disease. More focal focal patchy density in the retrocardiac region on the lateral view is concerning for developing consolidative pneumonia. PLEURA: No pleural effusion or pneumothorax. HEART AND MEDIASTINUM: The cardiomediastinal silhouette is BONES AND SOFT TISSUES: No acute osseous lesion. Soft tissues are unremarkable. UPPER ABDOMEN: No free air under the diaphragm. IMPRESSION: Mild viral infection versus reactive airway disease. Concern for developing consolidative pneumonia in the retrocardiac region. Recommend follow-up chest PA and lateral views in 6-8 weeks to document resolution. Signed by: Dr. Kalli Nevarez M.D. on 04/10/2019 10:53 PM
== END 2019-04-10 23:30 | disposition home or self-care (01) ==
LOC: ER 20:01
DX: R50.9 Fever, unspecified (principal); R05 Cough; J15.9 Unspecified bacterial pneumonia; J02.0 Streptococcal pharyngitis
CPT/HCPCS: 71046; 83518; 87400; 99283

== ENCOUNTER 2019-04-18 10:52 | Emergency (ER) | payer OTHER ==
[~2019-04-18] VITALS: Ht 175.3 cm; Wt 81.6 kg
[2019-04-18] MEDS ORDERED: ALBUTEROL/IPRATROPIUM 3 ML NEB NEB ONE (11:30)
--- NOTE | 2019-04-18 12:05 | NUR ---
PT IS VERY UPSET, PT STATED SHE HAS A SLIGHT HEADACHE AND WANTS SOME MEDICINE, I EXPLAINED TO PT THAT WE HAVE A VERY CRITICAL PT THAT WE ARE TRANSFERING AND THAT WAS TOP PRIORITY, I TOLD HER THAT THE DR HAD BEEN NOTIFIED OF HER HEADACHE BUT THAT I HAD NOT RECEIVED ORDERS OF YET, PT BECAME VERY ANGRY AND STATED SHE SHOULD COME FIRST. I AGAIN TOLD PT THAT IN THE ER THE [facility] PT IS TOP PRIORITY.
--- NOTE | 2019-04-18 12:06 | Diagnostic Imaging Report ---
Exam: Chest radiograph Clinical History: Cough Findings: The cardiomediastinal silhouette and lungs are normal. The regional skeleton and soft tissue are unremarkable. There is no evidence of pleural effusion or pneumothorax. Impression: No radiographic evidence of acute cardiopulmonary disease. Signed by: Dr. Kwaku Salter MD on 04/18/2019 12:03 PM
[2019-04-18] MEDS ORDERED: ACETAMINOPHEN 325 MG TAB PO ONE (12:15)
[2019-04-18] MEDS ORDERED: CEFTRIAXONE SOD 1 GM VIAL IV ONE (12:15)
[2019-04-18] MEDS ORDERED: CEFTRIAXONE SOD 1 GM/NS 50 ML 50 ML IV ONE (12:18)
[2019-04-18] MEDS ORDERED: DOXYCYCLINE HY100 MG PO (12:37)
[2019-04-18] MEDS ORDERED: ZOFRAN4 MG SL (12:40)
[2019-04-18 12:44] VITALS: BP 137/77
== END 2019-04-18 12:48 | disposition home or self-care (01) ==
LOC: FSED 10:52
DX: R50.9 Fever, unspecified (principal); R05 Cough; J20.9 Acute bronchitis, unspecified; J02.9 Acute pharyngitis, unspecified
CPT/HCPCS: 71046; 80053; 85025; 99284; J0696

== ENCOUNTER 2020-03-17 05:18 | Emergency (ER) | payer OTHER ==
[~2020-03-17] VITALS: Ht 175.3 cm; Wt 79.4 kg
[~2020-03-17 05:18] MED LIST changes: +DOXYCYCLINE HY100 MG PO; +ZOFRAN4 MG SL
[2020-03-17] MEDS ORDERED: METHYLPREDNISOLONE SOD SUCC 125 MG/2ML VIAL IV ONE (06:00)
[2020-03-17] MEDS ORDERED: ALBUTEROL/IPRATROPIUM 3 ML NEB NEB ONE (06:00)
[2020-03-17] MEDS ORDERED: PREDNISONE20 MG PO (06:56)
[2020-03-17] MEDS ORDERED: ZITHROMAX250 MG PO (06:59)
[2020-03-17] MEDS ORDERED: GUAIFEN-CODEINE5 ML PO (07:02)
[2020-03-17] MEDS ORDERED: ACETAMINOPHEN 325 MG TAB ONE (07:22)
[2020-03-17 07:27] VITALS: BP 142/69
[2020-03-17] MEDS ORDERED: ACETAMINOPHEN 325 MG TAB PO ONE (07:30)
[2020-03-17] MEDS ORDERED: AMLODIPINE BESYL5 MG PO (07:34)
== END 2020-03-17 07:25 | disposition home or self-care (01) ==
LOC: FSED 05:40
DX: R50.9 Fever, unspecified (principal); R05 Cough; J44.1 Chronic obstructive pulmonary disease with (acute) exacerbation; J20.9 Acute bronchitis, unspecified; J44.0 Chronic obstructive pulmonary disease with (acute) lower respiratory infection; R94.31 Abnormal electrocardiogram [ECG] [EKG]
CPT/HCPCS: 71046; 80053; 82553; 83880; 84484; 85025; 85379; 87400; 93005; 99284; J2930

== ENCOUNTER 2020-04-16 09:38 | Emergency (ER) | payer OTHER ==
[~2020-04-16] VITALS: Ht 170.2 cm; Wt 79.4 kg
[~2020-04-16 09:38] MED LIST changes: +AMLODIPINE BESYL5 MG PO; +GUAIFEN-CODEINE5 ML PO; +ZITHROMAX250 MG PO
[2020-04-16] MEDS ORDERED: DEXAMETHASONE SOD PHOS 10 MG/1 ML VIAL IV ONE (10:00)
[2020-04-16] MEDS ORDERED: ALBUTEROL/IPRATROPIUM 3 ML NEB NEB ONE (10:00)
[2020-04-16] MEDS ORDERED: ASPIRIN 81 MG CHEW TAB PO ONE (10:00)
[2020-04-16] MEDS ORDERED: METHYLPREDNISOLONE SOD SUCC 125 MG/2ML VIAL IV ONE (10:00)
[2020-04-16 10:03] LABS: BASOPHILS # (AUTO) 0.1 (0.0-0.1); BASOPHILS % 0.6 % (0.0-1.0); EOSINOPHILS # (AUTO) 0.5 (0.0-0.4); EOSINOPHILS % 4.3 % (0.0-6.0); HEMATOCRIT 38.7 % (34.2-44.1); HEMOGLOBIN 12.4 g/dL (12.0-16.0); LYMPHOCYTES # (AUTO) 5.7 (1.0-3.2); LYMPHOCYTES % 50.2 % (18.0-39.1); MEAN CORPUSCULAR HEMOGLOBIN 28.6 pg (28-32); MEAN CORPUSCULAR VOLUME 89.2 fL (81-99); MONOCYTES # (AUTO) 0.7 (0.2-0.8); MONOCYTES % 6.2 % (4.4-11.3); NEUTROPHILS # (AUTO) 4.3 (2.1-6.9); PLATELET COUNT 388 x10e3/uL (140-360); RED BLOOD COUNT 4.34 x10e6/uL (3.6-5.1); RED CELL DISTRIBUTION WIDTH 15.5 % (11.7-14.4)
[2020-04-16 10:33] LABS: ALANINE AMINOTRANSFERASE 13 IU/L (0-55); ALBUMIN 3.9 g/dL (3.5-5.0); ALBUMIN/GLOBULIN RATIO 1.3 (0.8-2.0); ALKALINE PHOSPHATASE 67 IU/L (40-150); BLOOD UREA NITROGEN 13 mg/dL (7-26); BUN/CREATININE RATIO 16 (6-25); CALCIUM 9.1 mg/dL (8.4-10.2); CARBON DIOXIDE 25 mmol/L (22-29); CHLORIDE 105 mmol/L (98-107); CREATINE KINASE 107 IU/L (29-168); CREATININE, SERUM 0.83 mg/dL (0.57-1.11); EST GLOMERULAR FILTRATION RATE > 60 ML/MIN (60-); GLUCOSE 92 mg/dL (74-118); SODIUM 140 mmol/L (136-145)
[2020-04-16] MEDS ORDERED: PROVENTIL HFA6.7 GM INH (11:48)
[2020-04-16] MEDS ORDERED: SYMBICORT 80-10.2 GM INH (11:48)
== END 2020-04-16 12:04 | disposition home or self-care (01) ==
LOC: ER 09:40
DX: J44.1 Chronic obstructive pulmonary disease with (acute) exacerbation (principal); I10 Essential (primary) hypertension; F17.200 Nicotine dependence, unspecified, uncomplicated
CPT/HCPCS: 36415; 71045; 80053; 82550; 82553; 84484; 85025; 93005; 94640; 99283; J1100

== ENCOUNTER 2021-03-27 07:52 | Emergency (ER) | payer OTHER ==
[~2021-03-27] VITALS: Ht 175.3 cm; Wt 81.4 kg
[~2021-03-27 07:52] MED LIST changes: +PROVENTIL HFA6.7 GM INH
[2021-03-27] MEDS ORDERED: ALBUTEROL SULF 0.083% NEB SOLN 3 ML NEB NEB STA (08:05)
[2021-03-27] MEDS ORDERED: IPRATROPIUM BROMIDE 0.02% 2.5 ML NEB NEB STA (08:05)
[2021-03-27] MEDS ORDERED: PROVENTIL HFA6.7 GM INH (08:12)
[2021-03-27] MEDS ORDERED: IPRAT-ALBUT 0.5-3 ML NEB (08:12)
[2021-03-27] MEDS ORDERED: AZITHROMYCIN250 MG PO (08:12)
[2021-03-27] MEDS ORDERED: PREDNISONE20 MG PO (08:12)
[2021-03-27] MEDS ORDERED: CEFTRIAXONE 1 GM VIAL IV ONE (08:15)
[2021-03-27] MEDS ORDERED: METHYLPREDNISOLONE SOD SUCC 125 MG/2ML VIAL IV ONE (08:15)
[2021-03-27] MEDS ORDERED: CEFTRIAXONE 1 GM in SODIUM CHLORIDE 0.9% 50ML 50 ML IV ONE (08:15)
[2021-03-27] MEDS ORDERED: ALBUTEROL SULF 0.083% NEB SOLN 3 ML NEB ONE (08:22)
[2021-03-27] MEDS ORDERED: METHYLPREDNISOLONE SOD SUCC 125 MG/2ML VIAL ONE (08:22)
[2021-03-27] MEDS ORDERED: SODIUM CHLORIDE 0.9% 50ML 50 ML ONE (08:22)
[2021-03-27] MEDS ORDERED: IPRATROPIUM BROMIDE 0.02% 2.5 ML NEB ONE (08:22)
[2021-03-27] MEDS ORDERED: CEFTRIAXONE 1 GM VIAL ONE (08:23)
== END 2021-03-27 08:55 | disposition home or self-care (01) ==
LOC: FSED 08:05
DX: R06.02 Shortness of breath (principal); J20.9 Acute bronchitis, unspecified; J44.1 Chronic obstructive pulmonary disease with (acute) exacerbation; J44.0 Chronic obstructive pulmonary disease with (acute) lower respiratory infection
CPT/HCPCS: 71046; 80053; 85025; 96374; 99284; J0696; J2930

== ENCOUNTER 2021-06-03 05:58 | Emergency (ER) | payer OTHER ==
[~2021-06-03] VITALS: Ht 175.3 cm; Wt 83.9 kg
[~2021-06-03 05:58] MED LIST changes: +AZITHROMYCIN250 MG PO; +IPRAT-ALBUT 0.5-3 ML NEB
[2021-06-03] MEDS ORDERED: SYMBICORT 80-10.2 GM INH (06:06)
[2021-06-03] MEDS ORDERED: PROVENTIL HFA6.7 GM INH (06:06)
[2021-06-03] MEDS ORDERED: PREDNISONE20 MG PO (06:12)
[2021-06-03] MEDS ORDERED: PREDNISONE 20 MG TAB PO ONE (06:15)
[2021-06-03] MEDS ORDERED: DEXAMETHASONE SOD PHOS 10 MG/1 ML VIAL IM ONE (06:15)
== END 2021-06-03 06:30 | disposition home or self-care (01) ==
LOC: ER 06:16
DX: J44.1 Chronic obstructive pulmonary disease with (acute) exacerbation (principal); I10 Essential (primary) hypertension; F17.200 Nicotine dependence, unspecified, uncomplicated; Z71.6 Tobacco abuse counseling; Z76.0 Encounter for issue of repeat prescription; Z79.899 Other long term (current) drug therapy
CPT/HCPCS: 99283; J7512

== ENCOUNTER 2021-07-27 12:21 | Emergency (ER) | payer OTHER ==
[~2021-07-27] VITALS: Ht 175.3 cm; Wt 83.9 kg
[2021-07-27] MEDS ORDERED: ALBUTEROL/IPRATROPIUM 3 ML NEB NEB ONE (13:00)
[2021-07-27] MEDS ORDERED: PREDNISONE 20 MG TAB PO ONE (13:15)
[2021-07-27] MEDS ORDERED: PREDNISONE 20 MG TAB ONE (13:32)
[2021-07-27] MEDS ORDERED: ALBUTEROL/IPRATROPIUM 3 ML NEB ONE (13:33)
[2021-07-27] MEDS ORDERED: PREDNISONE20 MG PO (14:05)
[2021-07-27] MEDS ORDERED: SYMBICORT 16010.2 GM INH (14:09)
[2021-07-27] MEDS ORDERED: PROVENTIL HFA6.7 GM INH (14:09)
== END 2021-07-27 14:55 | disposition home or self-care (01) ==
LOC: FSED 12:50
DX: R06.02 Shortness of breath (principal); J44.1 Chronic obstructive pulmonary disease with (acute) exacerbation; I10 Essential (primary) hypertension
CPT/HCPCS: 71046; 80053; 82553; 84484; 85025; 85379; 99283; J7512

== ENCOUNTER 2022-01-01 09:25 | Emergency (ER) | payer OTHER ==
[~2022-01-01] VITALS: Ht 170.2 cm; Wt 83.2 kg
[~2022-01-01 09:25] MED LIST changes: +SYMBICORT 16010.2 GM INH
[2022-01-01] MEDS ORDERED: KETOROLAC TROMETHAMINE 30 MG/ML VIAL IV STA (10:48)
[2022-01-01] MEDS ORDERED: METHYLPREDNISOLONE SOD SUCC 125 MG/2ML VIAL IV ONE (11:00)
[2022-01-01] MEDS ORDERED: ALBUTEROL/IPRATROPIUM 3 ML NEB NEB ONE (11:00)
[2022-01-01] MEDS ORDERED: KETOROLAC TROMETHAMINE 30 MG/ML VIAL ONE (11:38)
[2022-01-01] MEDS ORDERED: METHYLPREDNISOLONE SOD SUCC 125 MG/2ML VIAL ONE (11:38)
[2022-01-01] MEDS ORDERED: ALBUTEROL/IPRATROPIUM 3 ML NEB ONE (11:39)
[2022-01-01] MEDS ORDERED: AZITHROMYCIN250 MG PO (12:02)
[2022-01-01] MEDS ORDERED: VENTOLIN HFA18 GM INH (12:02)
[2022-01-01] MEDS ORDERED: PREDNISONE50 MG PO (12:02)
== END 2022-01-01 12:23 | disposition home or self-care (01) ==
LOC: FSED 10:43
DX: R06.02 Shortness of breath (principal); J44.1 Chronic obstructive pulmonary disease with (acute) exacerbation; I10 Essential (primary) hypertension; K21.9 Gastro-esophageal reflux disease without esophagitis; R94.31 Abnormal electrocardiogram [ECG] [EKG]; F17.210 Nicotine dependence, cigarettes, uncomplicated
CPT/HCPCS: 71045; 73080; 80053; 82553; 83880; 84484; 85025; 93005; 96374; 96375; 99284; J1885; J2930

== ENCOUNTER 2022-05-04 03:18 | Emergency (ER) | payer OTHER ==
[~2022-05-04] VITALS: Ht 170.2 cm; Wt 81.6 kg
[~2022-05-04 03:18] MED LIST changes: +PREDNISONE50 MG PO; +VENTOLIN HFA18 GM INH
[2022-05-04] MEDS ORDERED: ALBUTEROL/IPRATROPIUM 3 ML NEB NEB ONE (04:00)
[2022-05-04] MEDS ORDERED: SODIUM CHLORIDE 0.9% 1000ML 1,000 ML IV SCH (04:15)
[2022-05-04] MEDS ORDERED: SODIUM CHLORIDE 0.9% 1000ML 1,000 ML ONE (04:37)
[2022-05-04] MEDS ORDERED: ALBUTEROL/IPRATROPIUM 3 ML NEB ONE (04:37)
[2022-05-04] MEDS ORDERED: PREDNISONE20 MG PO (05:29)
[2022-05-04] MEDS ORDERED: PREDNISONE 20 MG TAB PO ONE (05:30)
[2022-05-04 05:33] VITALS: BP 142/82
[2022-05-04] MEDS ORDERED: PROVENTIL HFA6.7 GM INH (05:36)
[2022-05-04] MEDS ORDERED: SYMBICORT 16010.2 GM INH (05:36)
== END 2022-05-04 05:48 | disposition home or self-care (01) ==
LOC: FSED 03:25
DX: R06.02 Shortness of breath (principal); J44.1 Chronic obstructive pulmonary disease with (acute) exacerbation; I10 Essential (primary) hypertension; R94.31 Abnormal electrocardiogram [ECG] [EKG]
CPT/HCPCS: 71046; 80053; 81003; 82553; 83880; 84484; 85025; 93005; 99283; J7030; J7512

== ENCOUNTER 2024-05-07 09:00 | Emergency (ER) | payer BC, OTHER ==
[~2024-05-07] VITALS: Ht 175.3 cm; Wt 86.2 kg
[2024-05-07 09:03] VITALS: PULSE 120; RESP 19; TEMP 98.5; O2SAT 94
[2024-05-07] MEDS ORDERED: ALBUTEROL/IPRATROPIUM 3 ML NEB NEB ONE (09:15)
[2024-05-07] MEDS ORDERED: NAPROXEN250 MG PO (09:22)
[2024-05-07] MEDS ORDERED: METHOCARBAMOL750 MG PO (09:22)
[2024-05-07] MEDS ORDERED: MEDROL4 M2 PO (09:24)
[2024-05-07] MEDS: DEXAMETHASONE SOD PHOS INJ 4 MG/ML SDV IM ONE (09:40)
[2024-05-07] MEDS: KETOROLAC TROMETHAMINE 30 MG/ML VIAL IM ONE (09:41)
== END 2024-05-07 09:44 | disposition home or self-care (01) ==
LOC: FSED 09:08
DX: M54.50 Low back pain, unspecified (principal); X50.0XXA Overexertion from strenuous movement or load, initial encounter; I10 Essential (primary) hypertension; J44.9 Chronic obstructive pulmonary disease, unspecified; K21.9 Gastro-esophageal reflux disease without esophagitis
CPT/HCPCS: 99283; J1100; J1885

== ENCOUNTER 2024-12-14 09:04 | Emergency (ER) | payer BC ==
[~2024-12-14] VITALS: Ht 175.3 cm; Wt 90.4 kg
[~2024-12-14 09:04] MED LIST changes: +MEDROL4 M2 PO; +METHOCARBAMOL750 MG PO; +NAPROXEN250 MG PO
[2024-12-14] MEDS ORDERED: ALBUTEROL/IPRATROPIUM 3 ML NEB ONE (09:28)
[2024-12-14] MEDS ORDERED: METHYLPREDNISOLONE SOD SUCC 125 MG/2ML VIAL ONE (09:40)
[2024-12-14] MEDS ORDERED: SODIUM CHLORIDE 0.9% 1000ML 1,000 ML ONE (09:40)
[2024-12-14] MEDS ORDERED: VENTOLIN HFA18 GM INH (10:51)
[2024-12-14] MEDS ORDERED: CORICIDIN HBP1 EAC1 PO (10:51)
[2024-12-14] MEDS ORDERED: SYMBICORT 16010.2 GM INH (10:51)
[2024-12-14] MEDS ORDERED: CYCLOBENZAPRINE5 MG PO (10:57)
[2024-12-14 11:08] VITALS: PULSE 76; RESP 18; TEMP 97.9
[2024-12-14 11:22] VITALS: PULSE 75; RESP 18; O2SAT 95
[2024-12-14] MEDS: ALBUTEROL/IPRATROPIUM 3 ML NEB NEB ONE ×2 (11:22)
[2024-12-14] MEDS: SODIUM CHLORIDE 0.9% 1000ML 1,000 ML IV SCH (11:23)
[2024-12-14] MEDS: METHYLPREDNISOLONE SOD SUCC 125 MG/2ML VIAL IV ONE (11:23)
== END 2024-12-14 11:08 | disposition home or self-care (01) ==
LOC: FSED 09:10
DX: R06.02 Shortness of breath (principal); J44.1 Chronic obstructive pulmonary disease with (acute) exacerbation; R05.9 Cough, unspecified; I10 Essential (primary) hypertension; K21.9 Gastro-esophageal reflux disease without esophagitis
CPT/HCPCS: 71046; 80053; 83880; 84484; 85025; 93005; 94760; 96374; 99284; J2919; J7030